=== PATIENT | female | born 1980 | race Caucasian/White ===

== ENCOUNTER 2022-08-08 06:06 | Inpatient (IN) | payer OTHER, MEDICAID, SELFPAY ==
--- NOTE | 2022-08-01 10:36 | RAD_ITS ---
STUDY: X-RAY CHEST REASON FOR EXAM: Female, 41 years old. Pre-operative evaluation. TECHNIQUE: Frontal and lateral views of the chest. COMPARISON: None. FINDINGS: Hyperexpansion. There is no demonstrated pleural abnormality. Normal size heart. Normal mediastinum and mayra. Normal visualized pulmonary arteries. Normal visualized aortic arch and descending thoracic aorta. Normal visualized thoracic spine. Normal visualized ribs, clavicles, and shoulders. There is no demonstrated abnormality of the visualized soft tissue structures of the upper abdomen. RAD/Chest PA and Lateral IMPRESSION: Hyperexpansion. No active or acute cardiopulmonary abnormality. Electronically Signed: William Weiner, at 12:04 EDT ,
--- NOTE | 2022-08-01 10:36 | EKG12_ITS ---
Test Reason : PRE-OP Blood Pressure : / mmHG Vent. Rate : 091 BPM Atrial Rate : 091 BPM P-R Int : 148 ms QRS Dur : 076 ms QT Int : 352 ms P-R-T Axes : 080 065 062 degrees QTc Int : 432 ms Normal sinus rhythm Normal ECG Confirmed by BRUCE CHRISTIANSON, CASSIE ([id number]), photo editor VELASQUEZ AYALA ([id number]) on 08/02/2022 10:09:20 A M Referred By: ALEAH Confirmed By:FILIPPO BARRERA MD
[2022-08-01 11:18] LABS: Absolute Lymphocyte Count 1.73 X10^3/uL (0.83-4.51); Basophil# 0.05 X10^3/uL; Basophil% 0.9 % (0-1); Eosinophils% 8.7 % (0-5); Hematocrit 41.8 % (37-47); Hemoglobin 13.6 g/dL (12.0-15.0); Lymphocyte # 1.73 X10^3/ul (0.83-4.51); Lymphocyte % 29.9 % (19-41); Mean Corp Hgb Conc 32.5 g/dL (32-36); Mean Corpuscular Hgb 29.6 pg (27.0-32.0); Mean Corpuscular Volume 90.9 fL (81-99); Mean Platelet Vol. 9.7 fl (6.2-12.0); Monocyte# 0.53 X10^3/uL; Monocyte% 9.2 % (0-10); NRBC Flagged by Analyzer 0 % (0-5); Neutrophil # 2.96 X10^3/uL (2.7-7.7); Neutrophil % 51.1 % (47-70); Platelet Count 259 K/mm3 (150-450); RBC Distribution Width CV 12.4 % (11.6-14.6); RBC Distribution Width SD 41.1 fl (35.1-43.9); White Blood Count 5.8 K/mm3 (4.4-11.0)
[2022-08-01 11:30] LABS: Prothrombin Time (Protime)PT. 12.8 SECONDS (11.7-14.9)
[2022-08-01 11:31] LABS: Partial Thromboplast Time 29.1 Seconds (24.1-36.2)
[2022-08-01 11:45] LABS: Anion Gap 5 (5-15); BUN 8 mg/dL (7-18); BUN/Creat Ratio 10.7 RATIO (10-20); Calcium,Total 9.4 mg/dL (8.5-10.1); Chloride 107 mmol/L (98-107); Creatinine, Serum 0.75 mg/dL (0.55-1.02); EST Glomerular Filtration Rate 91 mL/min (>60); Est Glom Filt Rate - Afr Amer 110 mL/min (>60); Glucose 94 mg/dL (74-106); Sodium Level 140 mmol/L (136-145)
--- NOTE | 2022-08-01 12:22 | CASEMGMT ---
DARBY FRAZIER Assessment: TC to pt for initial transition planning/care coordination assessment. RN KARIN introduced self and role at [facility], pt voices understanding and consents to assessment. Care providers, pharmacy, and demographics verified/updated. Admitting Dx: Lumbar 4-5 post lumbar interbody fusion, decompression, post spinal fusion with instrumentation PCP:Audrey Specialists:Syed Noel Pharmacy: [facility] [place] Insurance: MMO Prescription Benefit: yes LW/HPOA: Pt denies having a LW/DPOA and denies need for information regarding AD. LNOK: Dorothy and Deshaun Harding, parents Living Arrangements: Pt lives with boyfriend and 2 children in a mobile home with 2 steps to enter without a rail. Pt reports being I for the most part with ADL's and denies concerns at home. Transportation: Pt drives self and denies concerns with transportation. Pt states her mother will tranpsort her to medical appts post surgery. DME/HHC/SNF: Pt recently obtained a FWW from [facility]. States her mother also purchased a toilet riser but she does not have it yet. Pt denies hx of HHC or SNF stays. Pt states no concerns with going home at time of dc. Pt states no further concerns/needs. CM to follow. Advised pt to ask CM if any further question/concerns/needs arise, voices understanding. Pt Goal: Home Plan: Home
[2022-08-08] VITALS (17 sets, daily range): BP systolic 88–110; BP diastolic 51–85; PULSE 61–111; RESP 15–18; TEMP 36.1–37.4; O2SAT 95–100; BMI 19.2
[2022-08-08] MEDS: Lactated Ringers 1,000 ML 15 ML IV ×2 (06:48→08:46)
--- NOTE | 2022-08-08 07:10 | OP.PCM_ITS ---
Problems Associated Problem List Diagnoses (1) Lumbar stenosis: Report of Operation Date of Procedure: 08/08/22 Pre-Operative Diagnosis: 1. Lumbar stenosis, L4-5 with spondylosis 2. Lumbar degenerative disc disease L4-5 Post-Operative Diagnosis: 1. Lumbar stenosis, L4-5 with spondylosis 2. Lumbar degenerative disc disease L4-5 Surgery/Procedure Performed:: 1. L4-5 posterior lumbar interbody fusion 2. Insertion of intervertebral biomechanical device x1 3. Structural allograft for spinal fusion 4. L4 bilateral laminectomies, foraminotomies, facetectomies, decompression of bilateral nerve roots 5. L4-5 posterior lateral fusion 6. Pedicle screw fixation 7. Local autograft for spinal fusion 9. Neuro monitoring bilateral upper and bilateral lower extremities Description of Surgical Findings:: The patient is a 41-year-old female with intractable back and leg pain. Image studies confirm the above diagnosis. She has failed conservative treatment to include medication physical therapy and injections. The patient opted for operative intervention understanding the risk to include but not limited to infection, bleeding, damage to nerves arteries and veins, possibility of spinal fluid leak, nonunion, hardware failure, continued pain, need for further surgery, deep vein thrombosis, pulmonary embolism, heart attack, risk of stroke or . The patient was identified in the preoperative holding area. There she received preoperative IV antibiotics Ancef and was then transferred to the operative suite. Once in the operative suite after general endotracheal anesthesia was established the patient was positioned prone on the Jam operating table. All bony prominences were padded accordingly. The lumbar spine was prepped and draped in a standard surgical fashion. Bear hugger's were not turned on until the drapes were placed and sealed with Ioban. A midline incision was made and taken down to the lumbodorsal fascia. The fascia was divided and subperiosteal dissection was taken down to the level of the transverse processes at L4 and L5 bilaterally. Deep retractors were placed. A bone scalpel was used to make cuts in the lamina of L4 and then a series of rongeurs and Kerrisons was used removing the spinous process and lamina at L4. Then facetectomies of greater than 50% were performed as well as foraminotomies decompressing the bilateral nerve roots. Given the severity of the stenosis I needed to perform wide bilateral laminectomies and near complete facetectomies in order to decompress the neural elements. Thus creating instability necessitating the fusion. I then proceeded with the interbody fusion. The nerve roots and dura were identified and retracted medially. A 15 blade scalpel was used to make an annulotomy at L4-5 on the left. Endplate elevators, curettes, and pituitaries were used to remove disc material. Endplates were prepared with a rasp. An appropriate sized intervertebral peek cage device measuring 11 mm was packed with morselized cancellous allograft and impacted into position completing the posterior lumbar interbody fusion at L4-5. I then proceeded with pedicle screw fixation. Starting points were found at the junction of the superior articular process and transverse processes. A power bur was used for the starting points. Pedicle probes were placed bilaterally and then 6.5 x 50 mm screws were placed bilaterally at L4 and L5. The screws were tested with intraoperative neurophysiologic monitoring and tested within normal limits. Connecting rods were applied and secured with set screws. I then proceeded with the posterior lateral fusion. This was accomplished by decorticating the transverse processes bilaterally at L4 and L5. This decorticated bone was then bridged with local a utograft from the decompression as well as morselized cancellous allograft therefore completing the posterior lateral fusion at L4-5. The incision was thoroughly irrigated. Tisseel was placed over the dura as a hemostatic agent. A deep drain was placed. The fascia was closed with #1 Vicryl, subcutaneous with 2-0 Vicryl and skin with 2-0 nylon. A sterile dressing was applied with 4 x 4's ABD and tape. Sponge instrument and needle counts were correct at the end of the case. Neurophysiologic monitoring was maintained at baseline throughout the duration of the case. The patient was extubated and taken to the PACU without incident. Surgeon: Spencer Lynch Type of Anesthesia: General Drains: Hemovac Estimated Blood Loss (mL): 250 cc Fluids Replaced: 1500 cc Grafts/Implants Used: Unified spine, talos, vitae os, DBM Complications None Admit VTE Documentation VTE Present on Admission: No
--- NOTE | 2022-08-08 07:11 | PCM.PN.ORT ---
Subjective Subjective The patient was seen and examined postoperatively in the PACU. She is resting comfortably. Her pain is controlled. She denies any acute numbness tingling or weakness Objective Data Objective Data Vital Signs: Vital Signs Temp Pulse Resp BP Pulse Ox O2 Del Method 99.4 F H 78 18 110/78 99 Room Air 08/08/22 06:43 08/08/22 06:43 08/08/22 06:43 08/08/22 06:43 08/08/22 06:43 08/08/22 06:43 Oxygen Delivery Method Room Air Weight: 119 lb 0.794 oz Body Mass Index (BMI) 19.2 Lab / Micro Data Result Diagrams: 08/01/22 10:53 08/01/22 10:53 Physical Exam Const alert, oriented x3 and no apparent distress General Appearance: cooperative, comfortable and well kempt HEENT normocephalic and head/scalp atraumatic Eyes EOMs intact bilaterally and conjunctivae normal Neck full ROM General: normal visual inspection Chest inspection of chest normal and palpation of chest normal Resp normal respiratory effort and normal air movement Cardio regular rate, regular rhythm and peripheral pulses 2+ throughout GI soft to palpation, non-tender and non-distended Back/Spine Back/Spine Narrative: Dressing clean dry and intact. Drain in place and functioning with small amount of serosanguineous fluid present Cervical Spine: cervical ROM normal Thoracic Spine / Upper Back: normal to inspection Lumbar Spine / Lower Back: normal to inspection Extremity normal to inspection, full ROM, normal capillary refill, no clubbing, cyanosis or edema and no calf tenderness Skin no rashes or lesions noted General Skin Exam: no breakdown Neuro oriented x3, CN's II-XII intact bilaterally, moves all extremities, no focal motor deficits, no sensory deficits noted and deep tendon reflexes 2+ bilaterally Motor Exam: strength 5/5 throughout and muscle tone normal throughout Assessment & Plan Assessment/Plan (1) Lumbar stenosis: PLAN: Okay to admit to floor See orders Pain control and mobilization as tolerated, back brace on at all times when out of bed Continue antibiotics while drain in place Discharge planning, likely home tomorrow
--- NOTE | 2022-08-08 07:11 | PCM.DC.SUM ---
Providers Date of Admission: 08/08/22 Primary Care Physician: Jil Ventura POWER PRESS OPERATOR-C Reason For Visit: lumbar 4-5 interbody fusion Diagnosis Discharge Diagnosis (1) Lumbar stenosis: Status: Acute Code(s): M48.061 - Spinal stenosis, lumbar region without neurogenic claudication Medications at Discharge Home Medications gabapentin 100 mg capsule 100 mg PO TID PAIN 07/29/22 metoprolol succinate 25 mg tablet,extended release 24 hr 12.5 mg PO BID BP 07/29/22 tizanidine 4 mg tablet (Zanaflex) 4 mg PO BID PRN Pain 07/29/22 oxycodone-acetaminophen 5 mg-325 mg tablet 1 tab PO Q6H PRN PRN Pain 7 days #28 tabs 08/09/22 tizanidine 4 mg capsule 4 mg PO Q8H PRN muscle spasticity 7 days #30 caps 08/09/22 Hospital Course Operations - (L4-5 posterior lumbar interbody fusion, decompression, posterior spinal fusion with instrumentation, use of allograft) Summary of Care Provided Minutes Spent on Discharge: 15 Hospital Course: The patient is a 41-year-old female who underwent L4-5 posterior lumbar interbody fusion, decompression, posterior spinal fusion with instrumentation, use of allograft on 08/08/2022. She was subsequently admitted. The hospitalist was consulted for medical management. The patient progressed well. Her pain was well controlled and she was mobilizing well. Her drain was pulled on postoperative day 1. No significant medical issues were reported and she was subsequently discharged home on 08/09/22 to follow-up with Dr. Lynch in 3 weeks Physical Exam Const alert, oriented x3 and no apparent distress General Appearance: cooperative, comfortable and well kempt HEENT normocephalic and head/scalp atraumatic Eyes EOMs intact bilaterally and conjunctivae normal Neck full ROM General: normal visual inspection Chest inspection of chest normal and palpation of chest normal Resp normal respiratory effort and normal air movement Effort and Inspection: able to speak in complete sentences Cardio regular rate and peripheral pulses 2+ throughout GI soft to palpation, non-tender and non-distended Back/Spine Back/Spine Narrative: Dressing clean dry and intact. Incision well approximated with interrupted sutures in place. No tenderness erythema drainage or fluctuance Cervical Spine: cervical ROM normal Thoracic Spine / Upper Back: normal to inspection Lumbar Spine / Lower Back: normal to inspection Extremity normal to inspection, full ROM, normal capillary refill, no clubbing, cyanosis or edema and no calf tenderness Skin no rashes or lesions noted General Skin Exam: no breakdown Neuro oriented x3, CN's II-XII intact bilaterally, moves all extremities, no focal motor deficits, no sensory deficits noted and deep tendon reflexes 2+ bilaterally Motor Exam: strength 5/5 throughout and muscle tone normal throughout Weight / BMI Weight Weight: 119 lb 0.794 oz Body Mass Index (BMI) 19.2 ABG / Lab / Microbiology Data Result Diagrams: 08/01/22 10:53 08/01/22 10:53 D/C Instructions Discharge Diet: No restrictions Lifting Restricted to (Lbs): 5 Lifting Restrictions: No repetitive bending twisting or lifting greater than 5 pounds. Additional Activity Instructions: Back brace on at all times while out of bed Call your doctor if your incision/area has: Continuous Slow Oozing, Sudden Increased Bleeding, Increased Pain/ Swelling, Increased Redness, Foul Smelling Discharge and Swelling at the incision site Call your doctor if you observe: Fever of 101 or Higher, Coldness, Increased Pain, Numbness or Tingling, Change in Color, Inability to urinate, Inability to have a bowel movement, Using more than 1 pad per hour, Shortness of breath, Dizziness, Fainting spells, Swelling in the ankles, Chest pain, Prolonged hiccupping, Increased palpitations (irregular heartbeat), Calf discomfort and Uncontrolled pain Cleanse incision/area with: Do not get Incision Wet and Keep Dressing Clean & Dry Additional Dressing/Incision Instructions: Change dressing daily with iodine gauze and tape. [place] dressing to shower Please Follow Up With: Spencer Lynch DO When: 3 weeks Meaningful Use Info Meaningful Use Diagnoses (Choose all that apply): None applicable Discharge Plan Admission Admit Date/Time: 08/08/22 06:06 Attending Provider: Spencer Lynch Primary Care Provider: Jil Ventura NP Consulting Providers: Aurora Newman Instructions Additional Instructions / Restrictions: 1. During your procedure, you received sedation through your IV. Please follow these instructions for the next 24 hours: Do not drive a motor vehicle, do not drink any alcoholic beverages, and do not sign any legal documents or make personal or business decisions. A responsible adult should stay with you at least 6 hours after the procedure. 2. Keep your surgical site/incision clean and the dressing dry and intact. Change dressing daily you may use an ice pack at the surgical site to reduce any swelling or discomfort. 3. Monitor the incision site for any signs or symptoms of infection. Watch for redness, excessive swelling or drainage, or continued pain at the incision site after 3 days. Contact your physician immediately for a fever, chills or a temperature of 101.5? F or greater. 4. Take your medication exactly as prescribed by your physician. Do not attempt to wean yourself off any of your medications even though your pain is improving. This process needs to be carefully monitored by your doctor. Take any antibiotics prescribed exactly as directed and until they are gone. 5. Avoid stretching, bending, pulling, twisting or any sudden movements. Do not bend or twist at the waist. Wear your back brace at all times 6. No lifting greater than 5 pounds. A gallon of milk weighs more than 5 pounds, so you may not lift this. Try to be careful. Any falls could disl 7. Do not operate a motor vehicle, equipment or a power tool while taking pain medication 8. Do not have any manipulation done by a chiropractor or any other physician without first consulting with the surgeon 9. Please contact our office if you are even scheduled for a CT scan or an MRI. 10. Please call us if you have any questions, problems or concerns. Discharge Orders/Prescriptions Prescriptions: New oxycodone-acetaminophen 5-325 mg tablet 1 tab PO Q6H PRN PRN (Reason: Pain) 7 Days Qty: 28 0RF tizanidine 4 mg capsule 4 mg PO Q8H PRN (Reason: muscle spasticity) 7 Days Qty: 30 0RF Continued tizanidine [Zanaflex] 4 mg Tablet 4 mg PO BID PRN (Reason: Pain) gabapentin 100 mg Capsule 100 mg PO TID metoprolol succinate 25 mg Tablet Extended Release 24 Hr 12.5 mg PO BID Referrals / Follow Up: Spencer Lynch DO [Med Staff - Active Staff] - Jil Ventura NP, POWER PRESS OPERATOR-C [Primary Care Provider] - Disposition Disposition (needs filled in before D/C Order can be placed): Home, Self Care
--- NOTE | 2022-08-08 07:44 | RAD_ITS ---
HISTORY: POSTERIOR FUSION L4-5. TECHNIQUE: 5 spot images. COMPARISON: None. FINDINGS: Posterior spinal fusion hardware with interbody fusion material at L4-5. RAD/Spine 1 View Any Level IMPRESSION: Fluoroscopic guidance for L4-5 posterior spinal fusion. Please refer to operative note. Electronically Signed: Ya Smart MD at 11:23 EDT ,
[2022-08-08] MEDS: Cefazolin 2 GM in 0.9% Normal Saline 100 ML IV (07:53)
[2022-08-08] MEDS: THROMBIN (RECOMBINANT) 20,000 UNIT VIAL 20000 UNIT TOPICAL (08:18)
[2022-08-08] MEDS: Heparin 10,000 UNITS/10 ML Vial 10000 UNITS (08:18)
[2022-08-08] MEDS: Lactated Ringers 1,000 ML 100 ML IV ×2 (10:46→17:36)
[2022-08-08] MEDS: Acetaminophen 500 MG Tablet 1000 MG PO ×2 (15:02→22:19)
[2022-08-08] MEDS: Gabapentin 100 MG Capsule PO (15:02)
--- NOTE | 2022-08-08 16:02 | CON.PCM.HO_ITS ---
Assessment & Plan Assessment/Plan (1) Lumbar stenosis: PLAN: Plan The patient is a 41 y/o F w/ PMHx: Former tobacco use, Chronic back pain w/ Lumbar stenosis, HTN who presents to the [facility] on 08/08/22 for planned surgical intervention per Dr. Lynch secondary to ongoing debility and pain in her back despite outpatient conservative interventions for planned surgical intervention. #1. Chronic back pain with lumbar stenosis: Failed conservative therapies and treatments, admitted per Dr. Lynch for planned 08/08/22 L4-5 posterior lumbar interbody fusion, insertion of intervertebral biomechanical device, structural allograft for spinal fusion, L4 bilateral laminectomies/foraminotomies/fasciotomies/decompression bilateral nerve roots, L4-5 posterior lateral fusion, pedicle screw fixation, local autograft for s barbara fusion with neurological monitoring, post-operative pain management, bowel regimen, DVT Prophylaxis, PT/OT/CM per Orthopedic surgery discretion. #2. Hypertension: Continue home regimen including metoprolol with alterations as needed, PRN hydralazine. #3. Former tobacco use: Encourage continued tobacco cessation. #4 DVT prophylaxis: SCDs, chemoprophylaxis per surgery discretion given recent OR. HPI Consult Data Date of Consult: 08/08/22 HPI Narrative Reason for Consultation: Medical consultation HPI Narrative: The patient is a 41 y/o F w/ PMHx: Former tobacco use, Chronic back pain w/ Lumbar stenosis, HTN who presents to the [facility] on 08/08/22 for planned surgical intervention per Dr. Lynch secondary to ongoing debility and pain in her back despite outpatient conservative interventions with L4-5 posterior lumbar interbody fusion, insertion of intervertebral biomechanical device, structural allograft for spinal fusion, L4 bilateral laminectomies/foraminotomies/fasciotomies/decompression bilateral nerve roots, L4-5 posterior lateral fusion, pedicle screw fixation, local autograft for spinal fusion with neurological monitoring. Surgery requested medical consultation for medical management. Patient upon evaluation noted she was having tentative 10 severe lumbar back pain with no associated radicular pains and describes her pain as a dull throbbing ache. Patient notes that she was recently at the end of her menstrual cycle and was asking about whether or not a Patel catheter would cause any issue which was discussed. [facility] Medical History (Updated 08/08/22 @ 07:[address] Spencer Lynch, DO) Back pain Former smoker History of echocardiogram History of irregular heartbeat History of pain when walking History of steroid therapy Injury of head and neck Wears dentures Home Medications gabapentin 100 mg capsule 100 mg PO TID PAIN 07/29/22 [History Last Taken 08/07/22] metoprolol succinate 25 mg tablet,extended release 24 hr 12.5 mg PO BID BP 07/29/22 [History Last Taken 08/08/22 05:30] tizanidine 4 mg tablet (Zanaflex) 4 mg PO BID PRN Pain 07/29/22 [History Last Taken 08/07/22] hydrocodone-acetaminophen 5-325mg 5mg-325mg 1 tab PO Q6H 7 days #28 tabs 08/08/22 [Rx Last Taken Unknown] Allergy/AdvReac Type Severity Reaction Status Date / Time No Known Allergies Allergy Verified 08/08/22 06:41 Family History (Updated 08/08/22 @ 19:[address] Aurora Newman MD) Mother Hypertension Father Hypertension Surgical History (Updated 08/08/22 @ 16:[address] Aurora Newman MD) History of back surgery Hx of tubal ligation S/P hernia repair S/P spinal fusion Social History (Updated 08/08/22 @ 16:[address] Aurora Newman MD) household members: spouse Smoking Status: Former smoker alcohol intake: current alcohol intake frequency: a few times a month substance use type: does not use ROS ROS Narrative Admission Review of Systems: CONSTITUTIONAL: No weight loss, fever, chills, + weakness or fatigue. HEENT: Eyes: No visual loss, blurred vision, double vision or yellow sclerae. Ears, Nose, Throat: No hearing loss, sneezing, congestion, runny nose or sore throat. SKIN: + recent OR with incisions, dressings in place, no marked drainage. CARDIOVASCULAR: No chest pain, chest pressure or chest discomfort, palpitations, edema, orthopnea, syncopal events. RESPIRATORY: No shortness of breath, cough or sputum, wheezing, hemoptysis. GASTROINTESTINAL: No anorexia, nausea, vomiting or diarrhea, abdominal pain, melena, BRBPR. GENITOURINARY: No dysuria, frequency, urgency or retention. NEUROLOGICAL: + Recent lumbar back pain with lower extremity debility but no focal deficits and no sensory alterations. No headache, dizziness, syncope, paralysis, ataxia, change in bowel or bladder control, seizure. MUSCULOSKELETAL: + muscle, back pain, joint pain or stiffness. HEMATOLOGIC: No anemia, bleeding or bruising. LYMPHATICS: No enlarged nodes. No history of splenectomy. PSYCHIATRIC: No history of depression or anxiety. ENDOCRINOLOGIC: No reports of sweating, cold or heat intolerance. No polyuria or polydipsia. ALLERGIES: No history of asthma, hives, eczema or rhinitis. Physical Exam Narrative Physical Examination: General: Awake, alert, oriented x 3 and cooperative, [facility], reports lumbar dull aching pain 10 out of 10 in severity. Skin: Normal color, normal turgor, no icterus, no cyanosis except for recent OR with incisions, dressings in place no drainage. HEENT: AT/NC, EOMI, PERRLA, mildly dry MM, no carotid bruits or JVD noted. Lungs: Mildly diminished, greater bases, appropriate effort, no rales, ronchi or wheezing. Heart: Regular rate and rhythm; no gallop, rub audible. Abdomen: Soft, thin habitus, NTTP, ND, distant mildly hyperactive BS, no HSM. Extremities: No cyanosis, clubbing, or edema, sensation intact. Neurological: Patient awake, alert, oriented as noted, cognitive function intact; pupils equally reactive to light and accommodation, cranial nerves II- XII grossly normal, moving all 4 extremities although limited given recent OR with lumbar surgery, no focal deficits, strength accordingly moderately to severely global decreased. Psychiatric: Affect appears fatigued and uncomfortable, no acute evidence of depressive or anxiety feelings. Lab / Micro Data Result Diagrams: 08/01/22 10:53 08/01/22 10:53 Radiology Impression Spine X-Ray 08/08/22 07:44 IMPRESSION: Fluoroscopic guidance for L4-5 posterior spinal fusion. Please refer to operative note. Electronically Signed: Ya Smart MD at 11:23 EDT , Charges/Coding Visit Charges Office Visits / Consults: [id number] IP Consult L3
[2022-08-08] MEDS: Cefazolin 1 GM/50 ML BAG IV ×2 (17:37→23:51)
[2022-08-08] MEDS: Gabapentin 100 MG Capsule 200 MG PO ×2 (17:37→22:17)
[2022-08-08] MEDS: Morphine 2 MG/ML Syringe IV ×2 (18:34→22:11)
[2022-08-08] MEDS: tiZANidine HCl 2 MG Tablet 4 MG PO (18:34)
[2022-08-08] MEDS: 0.9% Saline Lock 10 ML Syringe IV (22:11)
[2022-08-09] VITALS (9 sets, daily range): BP systolic 90–101; BP diastolic 54–70; PULSE 53–86; RESP 15–16; TEMP 36.7–36.8; O2SAT 97–99
[2022-08-09] MEDS: Morphine 2 MG/ML Syringe IV ×2 (03:29→08:12)
[2022-08-09] MEDS: 0.9% Saline Lock 10 ML Syringe IV (03:30)
[2022-08-09] MEDS: Lactated Ringers 1,000 ML 100 ML IV (03:40)
[2022-08-09] MEDS: oxyCODONE 5 MG Tablet PO ×2 (04:45→09:31)
[2022-08-09] MEDS: Gabapentin 100 MG Capsule 200 MG PO (06:12)
[2022-08-09] MEDS: Acetaminophen 500 MG Tablet 1000 MG PO (06:12)
[2022-08-09] MEDS: tiZANidine HCl 2 MG Tablet 4 MG PO (06:13)
--- NOTE | 2022-08-09 10:15 | CASEMGMT ---
RN CM in to pt room, pt states she is doing well considering. She denies homegoing needs. She has a FWW at home.
--- NOTE | 2022-08-09 12:21 | PN.HOSP_ITS ---
Subjective Subjective Patient seen and examined. She has no active complaints. Pain is well controlled. She did well with therapy today. Review of systems is otherwise negative. Objective Data Objective Data Vital Signs: Vital Signs Temp Pulse Resp BP Pulse Ox O2 Del Method 98.1 F 62 15 90/58 L 99 Room Air 08/09/22 09:00 08/09/22 09:35 08/09/22 09:00 08/09/22 09:35 08/09/22 09:00 08/09/22 09:00 Oxygen Delivery Method Room Air Weight: 119 lb 0.794 oz Body Mass Index (BMI) 19.2 Intake & Output: Intake and Output for Last 24 Hours 08/07/22 08/08/22 08/09/22 23:59 23:59 23:59 Intake Total 3093.33 / 3093.33 1550 / 1550 Output Total 2017 1790 / 1790 Balance 2275.33 / 1075.33 -240 / -240 Lab / Micro Data Result Diagrams: 08/01/22 10:53 08/01/22 10:53 Physical Exam Const alert, oriented x3 and no apparent distress General Appearance: uncooperative HEENT head/scalp atraumatic, moist oral mucous membranes and oropharynx normal Head and Scalp: normocephalic Mouth: oral and palatal mucosa normal Eyes PERRL, EOMs intact bilaterally and conjunctivae normal Resp normal respiratory effort, no retractions, no use of accessory muscles and clear to auscultation bilaterally Cardio regular rate, regular rhythm, S1 normal heart sound, S2 normal heart sound and no murmurs GI normal to inspection, nondistended, normoactive bowel sounds, soft to palpation, non-tender and non-distended GI Narrative: intact abdominal binder Extremity normal to inspection, full ROM and no clubbing, cyanosis or edema Neuro oriented x3, CN's II-XII intact bilaterally, moves all extremities and no focal motor deficits Motor Exam: strength 5/5 throughout Psych affect normal Assessment & Plan Assessment/Plan (1) Lumbar stenosis: PLAN: Plan #Lumbar spinal stenosis s/p L4- L5 posterior lumbar interbody fusion * today is POD 1. * management as per spine surgery * encouarge incentive spirmoetry * PT/OT on board * pain management as per primary team * #Hypertension: on metoprolol. Hydralazien prn DVT prophylaxis: as per primary team orthopedic surgery Charges/Coding Visit Charges Inpatient E&M: 10470 Subs Hosp L2
== END 2022-08-09 13:00 | disposition home or self-care (01) | DRG 460 ==
LOC: ACINP 09:01 → MS3 09:29
PROVIDERS: Admitting Provider Orthopaedic Surgery; PCP Nurse Practitioner Family; Visit Provider Orthopaedic Surgery
PROC: 0SG00AJ Fusion of Lumbar Vertebral Joint with Interbody Fusion Device, Posterior Approach, Anterior Column, Open Approach (ICD-10-PCS; CPT 22630; principal; 2022-08-08 07:00)
DX: M48.061 Spinal stenosis, lumbar region without neurogenic claudication (principal); I10 Essential (primary) hypertension; M46.96 Unspecified inflammatory spondylopathy, lumbar region; M51.36 Other intervertebral disc degeneration, lumbar region; M47.26 Other spondylosis with radiculopathy, lumbar region; M96.1 Postlaminectomy syndrome, not elsewhere classified; M51.16 Intervertebral disc disorders with radiculopathy, lumbar region; Z86.16 Personal history of COVID-19; Z87.891 Personal history of nicotine dependence
CPT/HCPCS: 36415; 71046; 72020; 76000; 80048; 85025; 85610; 85730; 93005; 97162; 97530; 99251; 99406; C1713; J7120; A4216; G0463; J2405

== ENCOUNTER → 2023-02-08 | Outpatient (CLI) | payer BC, MEDICAID, SELFPAY ==
[2023-02-08 11:11] LABS: AST(SGOT) 28 U/L (15-37); Alanine Aminotransfer ALT/SGPT 25 U/L (13-56); Albumin, Serum 3.6 g/dL (3.2-5.0); Alkaline Phosphatase 65 U/L (45-117); Anion Gap 3 (5-15); BUN 10 mg/dL (7-18); BUN/Creat Ratio 17.5 RATIO (10-20); Calcium,Total 8.8 mg/dL (8.5-10.1); Chloride 110 mmol/L (98-107); Cholesterol 221 mg/dL (200); Creatinine, Serum 0.57 mg/dL (0.55-1.02); EST Glomerular Filtration Rate 124 mL/min (>60); Est Glom Filt Rate - Afr Amer 150 mL/min (>60); Globulin 3.5 g/dL (2.2-4.2); Glucose 93 mg/dL (74-106); High Density Lipoprotein 66 mg/dL; Potassium 3.5 mmol/L (3.5-5.1); Protein, Total 7.1 g/dL (6.4-8.2); Sodium Level 138 mmol/L (136-145); Triglycerides 64 mg/dL; Very Low Density Lipoprotein 13 mg/dL (5-40)
[2023-02-10 09:11] LABS: HIV - WCH Non-Reactive (Nonreactive)
== END | disposition home or self-care (01) ==
LOC: LAB 10:15
PROVIDERS: PCP Nurse Practitioner Family; Visit Provider Nurse Practitioner Family
DX: Z13.1 Encounter for screening for diabetes mellitus (principal); Z13.220 Encounter for screening for lipoid disorders; Z11.4 Encounter for screening for human immunodeficiency virus [HIV]
CPT/HCPCS: 36415; 80053; 80061; 86703

== ENCOUNTER → 2023-03-03 | Outpatient (CLI) | payer BC, SELFPAY ==
--- NOTE | 2023-03-03 16:10 | CT_ITS ---
INDICATION: SPINAL STENOSIS EXAMINATION: CT lumbar SPINE - CT Spine Lumbar W/O Contrast Injection COMPARISON: None. A radiation dose optimization technique was used for this scan. Findings: Serial CT axial images through the lumbar spine, with coronal and sagittal reformatted series. DISCS/JOINTS: Significant streak artifact at L4-L5 level secondary to bilateral purvi and pedicle screw constructs at these levels, without obvious hardware complication. Intervertebral disc spacer in place. BONES: Associated postlaminectomy change. No evidence of lumbar spine fracture or subluxation. No concerning bony lesion or abnormal sclerosis to suggest lesion. SOFT TISSUES: Soft tissue structures are unremarkable. CT/Spine Lumbar without Contrast IMPRESSION: Post procedure change of the lumbar spine, without obvious abnormality. Electronically Signed: Lokesh Sevilla MD at 1:55 EDT ,
== END | disposition home or self-care (01) ==
PROVIDERS: PCP Nurse Practitioner Family; Referring Provider Physician Assistant Surgical; Visit Provider Physician Assistant Surgical
DX: M48.061 Spinal stenosis, lumbar region without neurogenic claudication (principal)
CPT/HCPCS: 72131

== ENCOUNTER → 2023-05-19 | Outpatient (CLI) | payer BC, SELFPAY ==
[2023-05-19 17:54] LABS: ALB/GLOB Ratio 0.9 RATIO (0.9-2.4); AST(SGOT) 20 U/L (15-37); Alanine Aminotransfer ALT/SGPT 17 U/L (13-56); Albumin, Serum 3.4 g/dL (3.2-5.0); Alkaline Phosphatase 54 U/L (45-117); Anion Gap 5 (5-15); BUN 11 mg/dL (7-18); BUN/Creat Ratio 15.3 RATIO (10-20); Calcium,Total 8.7 mg/dL (8.5-10.1); Chloride 107 mmol/L (98-107); Creatinine, Serum 0.72 mg/dL (0.55-1.02); EST Glomerular Filtration Rate 95 mL/min (>60); Est Glom Filt Rate - Afr Amer 115 mL/min (>60); Globulin 3.8 g/dL (2.2-4.2); Glucose 97 mg/dL (74-106); Magnesium 2.2 mg/dL (1.6-2.6); Potassium 3.7 mmol/L (3.5-5.1); Protein, Total 7.2 g/dL (6.4-8.2); Sodium Level 137 mmol/L (136-145); Thyroid Stim Hormone (TSH) 0.58 uIU/mL (0.358-3.74)
== END | disposition home or self-care (01) ==
PROVIDERS: PCP Nurse Practitioner Family; Referring Provider Internal Medicine; Visit Provider Internal Medicine
DX: K92.1 Melena (principal); E87.8 Other disorders of electrolyte and fluid balance, not elsewhere classified; R19.4 Change in bowel habit
CPT/HCPCS: 36415; 80053; 83735; 84443

== ENCOUNTER → 2024-04-07 | Outpatient (CLI) | payer BC, SELFPAY ==
--- NOTE | 2024-04-07 13:48 | NEURO_ITS ---
NCS and/or EMG Patient Report Ordering Doctor: Spencer Lynch DATE OF SERVICE: 04/07/24 Aide presents for electrodiagnostic testing of the upper limbs. She reports numbness and tingling in both hands. She reports intermittent neck pain. Electrodiagnostic findings: Median motor nerve demonstrates normal distal latency, amplitude and conduction velocity bilaterally. Ulnar motor response is normal bilaterally, including conduction across the elbow. Normal median ulnar F?ways. Sensory responses are within normal limits. Needle EMG testing was performed in the upper limbs. All muscles tested showed no evidence of denervation with normal motor unit action potentials. Electrodiagnostic impression: This is a normal electrodiagnostic study of the upper limbs. There is no electrodiagnostic evidence for peripheral neuropathy, including carpal tunnel or cubital tunnel syndrome. There is no electrodiag nostic evidence for cervical radiculopathy. Multi Select Codes Neurology Neurology Interp Codes: 68594-48 Musc test done w/n test comp (interp) (2) and 93906-62 Nrv cndj test 13/> studies (interp)
== END | disposition home or self-care (01) ==
PROVIDERS: PCP Nurse Practitioner Family; Referring Provider Orthopaedic Surgery; Visit Provider Orthopaedic Surgery
DX: M54.12 Radiculopathy, cervical region (principal); R20.2 Paresthesia of skin
CPT/HCPCS: 95886; 95913

== ENCOUNTER 2024-08-31 05:24 | Day surgery (SDC) | payer BC, SELFPAY ==
[2024-08-24 16:35] LABS: Absolute Lymphocyte Count 1.63 X10^3/uL (0.83-4.51); Absolute Neutrophil Count 2.1 X10^3/uL (2.0-7.7); Basophil# 0.04 X10^3/uL; Basophil% 0.9 % (0-1); Eosinophil# 0.35 X10^3/uL; Eosinophils% 7.6 % (0-5); Hematocrit 37.4 % (37-47); Hemoglobin 11.8 g/dL (12.0-15.0); Lymphocyte # 1.63 X10^3/ul (0.83-4.51); Lymphocyte % 35.6 % (19-41); Mean Corp Hgb Conc 31.6 g/dL (32-36); Mean Corpuscular Hgb 28.9 pg (27.0-32.0); Mean Corpuscular Volume 91.7 fL (81-99); Mean Platelet Vol. 10.6 fl (6.2-12.0); Monocyte% 10.9 % (0-10); NRBC Flagged by Analyzer 0 % (0-5); Neutrophil # 2.05 X10^3/uL (2.7-7.7); Neutrophil % 44.8 % (47-70); Platelet Count 224 K/mm3 (150-450); RBC Distribution Width CV 12.9 % (11.6-14.6); RBC Distribution Width SD 43.5 fl (35.1-43.9); Red Blood Count 4.08 M/mm3 (4.2-5.4); White Blood Count 4.6 K/mm3 (4.4-11.0)
[2024-08-24 16:50] LABS: Magnesium 2.2 mg/dL (1.6-2.6)
[2024-08-24 18:11] LABS: HIV - WCH Non-Reactive (Nonreactive); Hepatitis B Surface Antibody Non-Reactive; Hepatitis C Antibody Preliminary Reactive (Nonreactive)
[2024-08-26 09:09] LABS: Hepatitis A AB, Total Negative (Negative)
[2024-08-26 19:07] LABS: HCV Quant. RNA PCR 52700 IU/mL (.); HCV log 10 4.722 (.)
[2024-08-31] VITALS (14 sets, daily range): BP systolic 87–128; BP diastolic 57–104; PULSE 68–93; RESP 14–18; TEMP 36.2–37.1; O2SAT 95–100; BMI 22.4
--- OUTSIDE RECORDS SUMMARY | 2024-08-31 05:27 | XMS RPT_ITS | CCD ---
Author Organization [facility] Care Team Providers Care Under Baster Name Role Phone Audrey CATERING TRUCK OPERATOR.Jens FLORENCE Primary Care Provider GIORGI ROSE Attending Unavailab JENS Cárdenas Primary Care Unavailzak Beaver CATERING TRUCK OPERATOR.Jens FLORENCE Primary Care Provider Audrey CATERING TRUCK OPERATOR.Jens FLORENCE Primary Care Provider JENS BEAVER Referring Unavailable JENS BEAVER Primary Care Unavailable JENS BEAVER Referring Unavailable JENS BEAVER Primary Care Unavailable JENS BEAVER Attending Unavailable SELF Referring Unavailable JENS BEAVER Primary Care Unavailable EVETTE BENITEZ Attending Unavailable JENS BEAVER Primary Care Unavailable Medications Current Medications Medication Drug Class(es) Dates Sig (Normalized) Sig (Original) acyclovir 400 mg oral tablet (20 sources) Herpesvirus Nucleoside Analog DNA Polymerase Inhibitor, Herpes Simplex Virus Nucleoside Analog DNA Polymerase Inhibitor, Herpes Zoster Virus Nucleoside Analog DNA Polymerase Inhibitor Start: 10-01-2022 End: 03-24-2024 take 1 tablet by mouth three times daily acyclovir (ZOVIRAX) 400 mg tablet Indications: Recurrent cold sores take 1 tablet by mouth three times a day 21 tablet 2 03/24/2024 Active Start: 09-07-2021 take 1 tablet by ricky th three times daily acyclovir (ZOVIRAX) 400 mg tablet Indications: Recurrent cold sores Take 1 tablet by mouth three times daily. 21 tablet 3 09/07/2021 Active Comment on above: Take 1 tablet by ricky th three times daily. take 1 tablet by ricky th three times a day [id number] actuat albuterol 0.09 mg/actuat metered dose inhaler (19 sources) beta2-Adrenergic Agonist Start: 08-09-2024 take 2 puff(s) by inhalation every four hours as needed for wheezing albuterol HFA (PROVENTIL HFA, VENTOLIN HFA) 90 mcg/actuation inhaler Inhale 2 Puffs as instructed every 4 hours as needed for wheezing/shortness of breath. 1 Each 5 08/09/2024 Active Start: 02-26-2024 End: 08-09-2024 take 2 puff(s) by mouth every four to six hours albuterol HFA (PROVENTIL HFA, VENTOLIN HFA) 90 mcg/actuation inhaler INHALE 2 PUFFS BY MOUTH EVERY 4 TO 6 HOURS 02/26/2024 08/09/2024 Discontinued Start: 08-09-2021 albuterol HFA (PROVENTIL HFA, VENTOLIN HFA) 90 mcg/actuation inhaler Inhale 2 Puffs as instructed. 0 08/09/2021 Active Comment on above: Inhale 2 Puffs as in structed. clonazePAM 0.5 mg oral tablet (15 sources) Benzodiazepine Start: 02-26-20 take 1 tablet by mouth every twelve hours clonazePAM (KLONOPIN) 0.5 mg tablet Take 1 tablet by mouth every 12 hours. 02/26/2024 Active FLUoxetine 10 mg oral capsule (15 sources) Serotonin Reuptake Inhibitor Start: 02-18-20 take 1 capsule by mouth once daily in the morning FLUoxetine (PROZAC) 10 mg capsule Take 10 mg by mouth every morning. 02/18/2024 Active fluticasone propionate 0.05 mg/actuat metered dose nasal spray (20 sources) Corticosteroid Start: 02-06-20 End: 08-29-20 take 1 spray(s) nasal route once daily fluticasone (FLONASE) 50 mcg/actuation nasal spray spray 1 spray into each nostril every day 48 mL 1 08/29/2023 Active Comment on above: Use 1 [place] in each nostril once daily. spray 1 spray into e ach nostril every day loratadine 10 mg oral tablet (20 sources) Start: 10-06-20 End: 04-12-20 take 1 tablet by mouth once daily loratadine (CLARITIN) 10 mg tablet take 1 tablet by mouth every day 90 tablet 1 04/12/2024 Active Start: 02-05-2023 End: 08-04-2023 take 1 tablet by mouth once daily loratadine (CLARITIN) 10 mg tablet Take 1 tablet by mouth once daily. 90 tablet 1 02/05/2023 08/04/2023 Comment on above: Take 1 tablet by ricky th once daily. take 1 tablet by ricky th every day metoprolol tartrate 25 mg oral tablet (20 sources) beta-Adrenergic Yanely Start: 12-07-2023 End: 06-14-2024 take 1 tablet by mouth twice daily metoprolol tartrate, short acting, (LOPRESSOR) 25 mg tablet take 1/2 tablet by mouth twice daily 90 tablet 1 06/14/2024 Active Start: 02-05-2023 End: 12-07-2023 take 0.5 tablet by mouth twice daily metoprolol tartrate, short acting, (LOPRESSOR) 25 mg tablet Take 0.5 tablets by mouth twice daily. 90 tablet 1 02/05/2023 12/07/2023 Discontinued Start: 02-25-2022 End: 02-05-2023 take 1 tablet by mouth twice daily metoprolol tartrate, short acting, (LOPRESSOR) 25 mg tablet TAKE 1/2 TABLET BY MOUTH TWICE A DAY 90 tablet 1 08/27/2022 02/05/2023 Discontinued Start: 10-03-2021 End: 02-25-2022 take 0.5 tablet by mouth twice daily metoprolol tartrate, short acting, (LOPRESSOR) 25 mg tablet Take 0.5 tablets by mouth twice daily. 60 tablet 2 10/03/2021 02/25/2022 Discontinued Comment on above: TAKE 1/2 TABLET BY M OUTH TWICE DAILY Take 0.5 tablets by mouth twice daily. TAKE 1/2 TABLET BY M OUTH TWICE A DAY 24 hr nicotine 0.875 mg/hr transdermal system (20 sources) Cholinergic Nicotinic Agonist Start: 08-11-20 End: 03-31-20 24 apply 1 dose transdermal route every twenty-four hours nicotine (NICODERM) 21 mg/24 hr Indications: Nicotine dependence, cigarettes, uncomplicated APPLY 1 PATCH DIRECTED EVERY 24 HOURS. 28 Patch 1 02/18/2024 Active Start: 11-22-2022 End: 07-03-2023 apply 1 dose transdermal route every twenty-four hours nicotine (NICODERM) 14 mg/24 hr Indications: Smokes cigarettes APPLY 1 PATCH DIRECTED EVERY 24 HOURS. 30 Patch 1 05/22/2023 Active Start: 11-22-2022 nicotine (NETTA DERM) 7 mg/24 hr Indications: Smokes cigarettes Apply 1 Patch as directed every 24 hours for 14 days. 14 Patch 11/22/2022 Active Start: 11-22-2022 End: 03-19-2023 apply 1 dose transdermal route every twenty-four hours nicotine (NICODERM) 21 mg/24 hr Apply 1 Patch as directed every 24 hours. 30 Patch 1 02/05/2023 Active Start: 07-21-2022 End: 08-04-2022 nicotine (NICODERM) 7 mg/24 hr Indications: Smokes cigarettes Apply 1 Patch as directed every 24 hours for 14 days. 14 Patch 0 07/21/2022 08/04/2022 Active Start: 06-08-2022 End: 07-20-2022 apply 1 dose transdermal route every twenty-four hours nicotine (NICODERM) 14 mg/24 hr Indications: Smokes cigarettes Apply 1 Patch as directed every 24 hours. 30 Patch 1 06/08/2022 07/20/2022 Active Start: 04-26-2022 End: 06-07-2022 apply 1 dose transdermal route every twenty-four hours nicotine (NICODERM) 21 mg/24 hr Indications: Smokes cigarettes Apply 1 Patch as directed every 24 hours. 30 Patch 1 04/26/2022 06/07/2022 Active Comment on above: Apply 1 Patch as dir ected every 24 hours. Apply 1 Patch as dir ected every 24 hours for 14 days. perflutren lipid microspheres 1.3 mL in NaCl (PF) 0.9% 10 mL injection (DEFINITY) (5 sources) Start: 1 End: 3 perflutren lipid microspheres 1.3 mL in NaCl (PF) 0.9% 10 mL injection (DEFINITY) 125 ml sodium chloride 9 mg/ml prefilled syringe (5 sources) Start: 1 End: 3 sodium chloride 0.9 % (flush) 10 mL (BD POSIFLUSH) tiZANidine 4 mg oral tablet (20 sources) Central alpha-2 Adrenergic Agonist Start: 2 take 1 tablet by mouth twice daily as needed tiZANidine (ZANAFLEX) 4 mg tablet TAKE 1 TABLET BY MOUTH 2 TIMES A DAY NEEDED 06/10/2022 Active Comment on above: TAKE 1 TABLET BY RICKY 2 TIMES A DAY NEEDED varenicline 0.5 mg oral tablet (10 sources) Partial Cholinergic Nicotinic Agonist Start: 4 End: 4 varenicline (CHANTIX) 0.5 mg tablet Indications: Smokes cigarettes TAKE 1 TAB DAILY X 3 DAYS,THEN 1 TAB TWICE DAILY X 3 DAYS, THEN 2 TABS TWICE DAILY FOR 22 DAYS 291 tablet 1 05/05/2024 Active Completed/Discontinued Medications Medication Drug Class(es) Dates Sig (Normalized) Sig (Original) amoxicillin 875 mg / clavulanate 125 mg oral tablet (12 sources) Penicillin-class Antibacterial Start: 02-26-2024 End: 08-09-2024 take 1 tablet by mouth every twelve hours amoxicillin-clavul anate potassium (AUGMENTIN) 875-125 mg per tablet Take 1 tablet by mouth every 12 hours. 02/26/2024 08/09/2024 Discontinued benzonatate 100 mg oral capsule (3 sources) Non-narcotic Antitussive Start: 10-03-2021 take 100-200 mg by mouth every eight hours as needed benzonatate (TESSALON PERLES) 100 mg capsule Take 1-2 capsules by mouth three times daily as needed for cough. 45 capsule 1 10/03/2021 Active Comment on above: Take 1-2 capsules by mouth three times daily as needed for cough. doxycycline hyclate 100 mg oral tablet (4 sources) Tetracycline-class Drug Start: 03-03-2024 End: 03-13-2024 take 1 tablet by mouth twice daily doxycycline (VIBRA-TABS) 100 mg tablet Indications: Bacterial sinusitis Take 1 tablet by mouth two times a day for 10 days. 20 tablet 0 03/03/2024 03/13/2024 loperamide hydrochloride 2 mg oral tablet (3 sources) Opioid Agonist Start: 08-13-2021 loperamide HCl (IMODIUM A-D) 2 mg tab Indications: COVID-19 Take 2 tablets x1, then 1 tablet after each loose stool. Do not take more than 4 tablets in 24 hours. 20 tablet 0 08/13/2021 Active Comment on above: Take 2 tablets x1, t hen 1 tablet after each loose stool. Do not take more than 4 tablets in 24 hours. ondansetron 4 mg oral tablet (3 sources) Serotonin-3 Receptor Antagonist Start: 08-13-2021 take 1 tablet by mouth every six hours as needed for nausea ondansetron (ZOFRAN) 4 mg tablet Indications: COVID-19 Take 1 tablet by mouth every 6 hours as needed for nausea/vomiting. 30 tablet 0 08/13/2021 Active Comment on above: Take 1 tablet by ricky th every 6 hours as needed for nausea/vomiting. predniSONE 20 mg oral tablet (13 sources) Start: 03-03-2024 End: 08-09-2024 take 3 tablets by mouth once daily, then take 2 tablets by mouth once daily, then take 1 tablet by mouth once daily predniSONE (DELTASONE) 20 mg tablet Indications: Bacterial sinusitis Take 3 pills by mouth daily for 3 days, then 2 pills by mouth daily for 3 days, then 1 pill by mouth daily for 3 days 18 tablet 03/03/2024 08/09/2024 Discontinued Start: 02-26-2024 End: 03-03-2024 take 2 tablets by mouth once predniSONE (DELTASONE) 20 mg tablet Take 2 tablets by mouth every afternoon. 0 02/26/2024 03/03/2024 Discontinued (Other) Problems Active Problems Problem Classification Problem Date Documented Date Episodic/Chronic Chronic obstructive pulmonary disease and bronchiectasis (2 sources) Bronchitis, not specified as acute or chronic; Translations: [Bronchitis, not specified as acute or chronic] Onset: 01-09-2023 Episodic Disorders of lipid metabolism (1 source) Mixed hyperlipidemia; Translations: [Mixed hyperlipidemia] 08-15-2023 Chronic Immunizations and screening for infectious disease (5 sources) Patient encounter status; Translations: [Encounter for screening for human immunodeficiency virus [HIV]] Episodic Other eye disorders (20 sources) Chorioretinal scar of right eye; Translations: [Unspecified chorioretinal scars, right eye] Onset: 02-03-2020 02-03-2020 Chronic Other upper respiratory infections (2 sources) Bacterial sinusitis; Translations: [Chronic sinusitis, unspecified] Onset: 03-03-2024 03-03-2024 Chronic Pneumonia (except that caused by tuberculosis or sexually transmitted disease) (1 source) Bacterial pneumonia; Translations: [Unspecified bacterial pneumonia] 03-05-2024 Episodic Residual codes; unclassified (1 source) Nicotine-filled electronic cigarette user; Translations: [Tobacco use] Episodic Spondylosis; intervertebral disc disorders; other back problems (20 sources) Lumbosacral spondylosis without myelopathy; Translations: [Spondylosis without myelopathy or radiculopathy, lumbosacral region] Onset: 01-18-2019 10-03-2021 Chronic Substance-related disorders (7 sources) Cigarette smoker ; Translations: [Nicotine dependence, cigarettes, uncomplicated] Chronic Viral infection (3 sources) Recurrent herpes simplex labialis; Translations: [Herpesviral vesicular dermatitis] Episodic Past or Other Problems Problem Classification Problem Date Documented Date Episodic/Chronic Bacterial infection; unspecified site (1 source) Other specified bacterial agents as the cause of diseases classified elsewhere; Translations: [Bacterial sinusitis] Onset: 03-03-2024 Episodic Blindness and vision defects (20 sources) Transient visual loss, bilateral; Translations: [Transient visual loss] Onset: 02-03-2020 02-03-2020 Episodic Cancer of cervix (20 sources) Cervicovaginal cytology: Low grade squamous intraepithelial lesion; Translations: [Low grade squamous intraepithelial lesion on cytologic smear of cervix (LGSIL)] Onset: 01-10-2020 01-10-2020 Episodic Cardiac dysrhythmias (20 sources) Tachycardia; Translations: [Tachycardia, unspecified] Onset: 08-07-2022 08-07-2022 Episodic Headache; including migraine (20 sources) Headache; Translations: [Headaches] Onset: 01-10-2020 01-10-2020 Episodic Residual codes; unclassified (19 sources) Tobacco use and exposure - finding; Translations: [Tobacco use] Onset: 09-14-2015 Resolved: 08-07-2022 09-04-2016 Episodic Residual codes; unclassified (19 sources) Tobacco user; Translations: [Tobacco use] Onset: 09-14-2015 Resolved: 08-07-2022 01-07-2019 Episodic Spondylosis; intervertebral disc disorders; other back problems (20 sources) Lumbar radiculopathy; Translations: [Radiculopathy, lumbar region] Onset: 04-11-2019 12-01-2021 Episodic Sprains and strains (1 source) Strain of muscle, fascia and tendon of lower back, initial encounter; Translations: [Strain of muscle, fascia and tendon of lower back, initial encounter] Onset: 05-06-2017 Episodic Results Test Name Value Interpretation Reference Range [facility] Letter Text Normal [facility] ECG COMPLETEon 08-11-2024 ECG COMPLETE Ventricular Rate : 6 0 BPM Atrial Rate : 60 BPM P-R Interval : 148 ms QRS Duration : 88 ms Q-T Interval : 442 ms QTC Calculation(Bazett) : 442 ms Calculated P [place] : 63 degrees Calculated R [place] : 61 degrees Calculated T [place] : 64 degrees NORMAL SINUS RHYTHM NORMAL ECG NO PREVIOUS ECGS AVAILABLE Confirmed by MD BUTT VINAYAK ([id number]) on 08/13/2024 3:26:44 PM NAME : AIDE LAZO PID : [id number] : 1980 Gender : Female Race : ORD : [id number] Procedure Date : Aug 11 2024 16:04:49 Edit Date : Aug 13 2024 15:26:47 Diagnosis: NORMAL SINUS RHYTHM NORMAL ECG NO PREVIOUS ECGS AVAILABLE Confirmed by MD BUTT VINAYAK ([id number]) on 08/13/2024 3:26:44 PM Test Reason : HCS Location : 191 : L[facility] Overread By : MD BUTT VINAYAK Edited By : MD BUTT VINAYAK Referred By : JENS BEAVER Acquired by : NARCISO HA [facility] Basic metabolic 2000 panelon 08-05-2024 Anion gap [Moles/Vol] 10 mmol/L Normal 8-15 [facility] Comment on above: Order Comment: Berta amador Type: BLOOD SPECIMEN Ordering Facility: [facility] Address: [address] [place] [address] Performed By: #### 2 4321-2 #### [facility] CLIA [id number] [address] [place] [address] [place] Calcium [Mass/Vol] 9.1 mg/dL Normal 8.5-10.2 [facility] Comment on above: Order Comment: Berta amador Type: BLOOD SPECIMEN Ordering Facility: [facility] Address: [address] [place] [address] Performed By: #### 2 4321-2 #### [facility] CLIA [id number] [address] [place] [address] [place] Chloride [Moles/Vol] 106 mmol/L Normal 98-107 [facility] Comment on above: Order Comment: Speci men Type: BLOOD SPECIMEN Ordering Facility: [facility] Address: [address] [place] [address] Performed By: #### 2 4321-2 #### [facility] CLIA [id number] [address] [place] [address] [place] CO2 [Moles/Vol] 22 mmol/L Normal 22-30 [facility] Comment on above: Order Comment: Speci men Type: BLOOD SPECIMEN Ordering Facility: [facility] Address: [address] [place] [address] Performed By: #### 2 4321-2 #### [facility] CLIA [id number] [address] [place] [address] [place] Creatinine [Mass/Vol] 0.60 mg/dL Normal 0.58-0.96 [facility] Comment on above: Order Comment: Speci men Type: BLOOD SPECIMEN Ordering Facility: [facility] Address: [address] [place] [address] Performed By: #### 2 4321-2 #### [facility] CLIA [id number] [address] [place] [address] [facility] [place] Creatinine and Glomerular filtration rate.predicted panel (S/P/Bld) 116 mL/min/1.73m??? Normal >=60 [facility] Comment on above: Order Comment: Speci men Type: BLOOD SPECIMEN Ordering Facility: [facility] Address: [address] [place] [address] Result Comment: Rita mated Glomerular Filtration Rate (eGFR) is calculated using the 2020 CKD-EPI creatinine equation. This equation utilizes serum creatinine, sex, and age as parameters. The creatinine assay has traceable calibration to isotope dilution-mass spectrometry. Refer to KDIGO guidelines for clinical interpretation. In patients with unstable renal function, e.g. those with acute kidney injury, the eGFR may not accurately reflect actual GFR. Performed By: #### 2 4321-2 #### [facility] CLIA [id number] [address] [place] [address] [place] Glucose [Mass/Vol] 96 mg/dL Normal 74-99 [facility] Comment on above: Order Comment: Berta amador Type: BLOOD SPECIMEN Ordering Facility: [facility] Address: [address] [place] [address] Result Comment: The [place] Diabetes Association (ADA) provides guidance for cutoff values for fasting glucose and random glucose. The ADA defines fasting as no caloric intake for at least 8 hours. Fasting plasma glucose results between 100 to 125 mg/dL indicate increased risk for diabetes (prediabetes). Fasting plasma glucose results greater than or equal to 126 mg/dL meet the criteria for diagnosis of diabetes. In the absence of unequivocal hyperglycemia, results should be confirmed by repeat testing. In a patient with classic symptoms of hyperglycemia or hyperglycemic crisis, random plasma glucose results greater than or equal to 200 mg/dL meet the criteria for diagnosis of diabetes. Reference: Standards of Medical Care in Diabetes 2016, [place] [employer] Association. Diabetes Care. 2016.39(Suppl 1). Performed By: #### 2 4321-2 #### [facility] CLIA [id number] [address] [place] [address] [place] Potassium [Moles/Vol] 3.7 mmol/L Normal 3.7-5.1 [facility] Comment on above: Order Comment: Berta amador Type: BLOOD SPECIMEN Ordering Facility: [facility] Address: [address] [place] [address] Performed By: #### 2 4321-2 #### [facility] CLIA [id number] [address] [place] [address] [place] Sodium [Moles/Vol] 138 mmol/L Normal 136-144 [facility] Comment on above: Order Comment: Berta amador Type: BLOOD SPECIMEN Ordering Facility: [facility] Address: [address] [place] [address] Performed By: #### 2 4321-2 #### [facility] CLIA [id number] [address] [place] [address] [place] [facility] Urea nitrogen [Mass/Vol] 7 mg/dL Normal 7-21 [facility] Comment on above: Order Comment: Speci men Type: BLOOD SPECIMEN Ordering Facility: [facility] Address: [address] [place] [address] Performed By: #### 2 4321-2 #### [facility] CLIA [id number] [address] [place] [address] [place] [facility] CBC panel Auto (Bld)on 08-05 Erythrocyte distribution width (RBC) [Ratio] 12.8 % Normal 11.5-15.0 [facility] Comment on above: Order Comment: Speci men Type: BLOOD SPECIMENOrdering Facility: [facility] Address: [address] [place] [address] Performed By: #### 5 8410-2 ####[facility] [id number] [place] [address] [facility] Hematocrit (Bld) [Volume fraction] 38.3 % Normal 36.0-46.0 [facility] Comment on above: Order Comment: Speci men Type: BLOOD SPECIMENOrdering Facility: [facility] Address: [address] [place] [address] Performed By: #### 5 8410-2 ####[facility] [id number] [place] [address] [facility] Hemoglobin (Bld) [Mass/Vol] 12.2 g/dL Normal 11.5-15.5 [facility] Comment on above: Order Comment: Speci men Type: BLOOD SPECIMENOrdering Facility: [facility] Address: [address] [place] [address] Performed By: #### 5 8410-2 ####[facility] [id number] [place] [address] [place] MCH (RBC) [Entitic mass] 29.1 pg Normal 26.0-34.0 [facility] Comment on above: Order Comment: Speci men Type: BLOOD SPECIMENOrdering Facility: [facility] Address: [address] [place] [address] Performed By: #### 5 8410-2 ####[facility] [id number] [place] [address] [place] MCHC (RBC) [Mass/Vol] 31.9 g/dL Normal 30.5-36.0 [facility] Comment on above: Order Comment: Speci men Type: BLOOD SPECIMENOrdering Facility: [facility] Address: [address] [place] [address] Performed By: #### 5 8410-2 ####[facility] [id number] [place] [address] [place] MCV (RBC) [Entitic vol] 91.4 fL Normal 80.0-100.0 [facility] Comment on above: Order Comment: Speci men Type: BLOOD SPECIMENOrdering Facility: [facility] Address: [address] [place] [address] Performed By: #### 5 8410-2 ####[facility] [id number] [place] [address] [place] Platelet mean volume (Bld) [Entitic vol] 10.1 fL Normal 9.0-12.7 [facility] Comment on above: Order Comment: Speci men Type: BLOOD SPECIMENOrdering Facility: [facility] Address: [address] [place] [address] Performed By: #### 5 8410-2 ####[facility] [id number] [place] [address] [facility] [place] Plate[place] (Bld) [#/Vol] 220 10*3/uL Normal 150-400 [facility] Comment on above: Order Comment: Speci men Type: BLOOD SPECIMENOrdering Facility: [facility] Address: [address] [place] [address] Performed By: #### 5 8410-2 ####[facility] [id number] [place] [address] [facility] RBC (Bld) [#/Vol] 4.19 10*6/uL Normal 3.90-5.20 [facility] Comment on above: Order Comment: Speci men Type: BLOOD SPECIMENOrdering Facility: [facility] Address: [address] [place] [address] Performed By: #### 5 8410-2 ####[facility] [id number] [place] [address] [facility] WBC (Bld) [#/Vol] 3.70 10*3/uL Normal 3.70-11.00 [facility] Comment on above: Order Comment: Speci men Type: BLOOD SPECIMENOrdering Facility: [facility] Address: [address] [place] [address] Performed By: #### 5 8410-2 ####[facility]IA [id number] [place] [id number] [facility] Fei 08-04-2024 MARY Telephone (LILI) ----- AIDE LAZO ([id number]) 1980 F [facility] Date Time Provider Department 08/04/24 JENS BEAVER During your visit today, we recorded the following information about you: Jens Beaver APRN.CNP 08/04/2024 8:52 AM Signed Received form for medical clearance for surgery - scheduled on 08/31/24. She needs a preop visit. I ordered labs for her. It can be virtual if needed but in person preferred. ZUNILDA Villanueva Julie, MA 08/04/2024 9:11 AM Signed Patient is informed and she will call back to schedule BRETT Franco Kristin C, APRN.NAMAN 08/16/2024 8:43 AM Signed Blood work, visit, and EKG are complete - please fax medical clearance form. Thank you. Jens Beaver APRN.NAMAN Daquan BaconBRETT 08/16/2024 10:06 AM Signed Faxed everything . Placed in immediate scanning. Daquan Bacon MA Allergies As of Date: 08/04/2024 (No Known Allergies) Date Reviewed: 03/03/2024 Reviewed by: Evette Benitez DO - Fully Assessed Reason for Visit: Forms [913] Cmt: Medical Clearance for Surgery Primary Visit Diagnosis:Preop examination [Z01.818] Order(s):BASIC METABOLIC PANEL [SQBMP] Order #: [id number] FUTURE COMPLETE BLOOD COUNT [SQCBC] Order #: [id number] FUTURE Prescriptions as of 08/16/2024 - albuterol HFA (PROVENTIL HFA, VENTOLIN HFA) 90 mcg/actuation inhaler Inhale 2 Puffs as instructed every 4 hours as needed for wheezing/shortness of breath. - metoprolol tartrate, short acting, (LOPRESSOR) 25 mg tablet take 1/2 tablet by mouth twice daily - varenicline (CHANTIX) 0.5 mg tablet TAKE 1 TAB DAILY X 3 DAYS,THEN 1 TAB TWICE DAILY X 3 DAYS, THEN 2 TABS TWICE DAILY FOR 22 DAYS - loratadine (CLARITIN) 10 mg tablet take 1 tablet by mouth every day - acyclovir (ZOVIRAX) 400 mg tablet take 1 tablet by mouth three times a day - clonazePAM (KLONOPIN) 0.5 mg tablet Take 1 tablet by mouth every 12 hours. - FLUoxetine (PROZAC) 10 mg capsule Take 10 mg by mouth every morning. - nicotine (NICODERM) 21 mg/24 hr APPLY 1 PATCH DIRECTED EVERY 24 HOURS. - fluticasone (FLONASE) 50 mcg/actuation nasal spray spray 1 spray into each nostril every day - nicotine (NICODERM) 14 mg/24 hr APPLY 1 PATCH DIRECTED EVERY 24 HOURS. - nicotine (NICODERM) 7 mg/24 hr Apply 1 Patch as directed every 24 hours for 14 days. - tiZANidine (ZANAFLEX) 4 mg tablet TAKE 1 TABLET BY MOUTH 2 TIMES A DAY NEEDED Problem List As Of Date 08/04/2024 Noted Resolved History of surgical procedure [Z98.890] 09/14/2015 Tobacco use [Z72.0] 09/14/2015 08/07/2022 Tobacco abuse [Z72.0] 09/14/2015 08/07/2022 H/O bilateral salpingectomy [Z90.79] 09/14/2015 Low grade squamous intraepithelial lesion on cy*01/10/2020 Headaches [R51.9] 01/10/2020 Transient visual loss, bilateral [H53.123] 02/03/2020 Chorioretinal scar of right eye [H31.001] 02/03/2020 Lumbosacral spondylosis without myelopathy [M47*01/18/2019 Lumbar radiculopathy [M54.16] 03/11/2019 Thoracic and lumbosacral neuritis [M54.14, M54.*02/11/2019 Tachycardia [R00.0] 08/07/2022 Encounter Status:Closed by MARYCARMEN LEVY on 08/04/24 [facility] Fei 08-03-2024 MARY Telephone (LILI) ----- AIDE LAZO ([id number]) 1980 F [facility] Date Time Provider Department 08/03/24 JENS BEAVER During your visit today, we recorded the following information about you: Allergies As of Date: 08/03/2024 (No Known Allergies) Date Reviewed: 03/03/2024 Reviewed by: Evette Benitez DO - Fully Assessed Reason for Visit: clearance form [Other] Cmt: Form put in red folder Prescriptions as of 08/03/2024 - metoprolol tartrate, short acting, (LOPRESSOR) 25 mg tablet take 1/2 tablet by mouth twice daily - varenicline (CHANTIX) 0.5 mg tablet TAKE 1 TAB DAILY X 3 DAYS,THEN 1 TAB TWICE DAILY X 3 DAYS, THEN 2 TABS TWICE DAILY FOR 22 DAYS - loratadine (CLARITIN) 10 mg tablet take 1 tablet by mouth every day - acyclovir (ZOVIRAX) 400 mg tablet take 1 tablet by mouth three times a day - albuterol HFA (PROVENTIL HFA, VENTOLIN HFA) 90 mcg/actuation inhaler INHALE 2 PUFFS BY MOUTH EVERY 4 TO 6 HOURS - amoxicillin-clavulanate potassium (AUGMENTIN) 875-125 mg per tablet Take 1 tablet by mouth every 12 hours. - clonazePAM (KLONOPIN) 0.5 mg tablet Take 1 tablet by mouth every 12 hours. - FLUoxetine (PROZAC) 10 mg capsule Take 10 mg by mouth every morning. - predniSONE (DELTASONE) 20 mg tablet Take 3 pills by mouth daily for 3 days, then 2 pills by mouth daily for 3 days, then 1 pill by mouth daily for 3 days - nicotine (NICODERM) 21 mg/24 hr APPLY 1 PATCH DIRECTED EVERY 24 HOURS. - fluticasone (FLONASE) 50 mcg/actuation nasal spray spray 1 spray into each nostril every day - nicotine (NICODERM) 14 mg/24 hr APPLY 1 PATCH DIRECTED EVERY 24 HOURS. - nicotine (NICODERM) 7 mg/24 hr Apply 1 Patch as directed every 24 hours for 14 days. 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] 02/03/2020 Lumbosacral spondylosis without myelopathy [M47*01/18/2019 Lumbar radiculopathy [M54.16] 03/11/2019 Thoracic and lumbosacral neuritis [M54.14, M54.*02/11/2019 Tachycardia [R00.0] 08/07/2022 Encounter Status:Closed by OTTO LONDONO on 08/03/24 [facility] CNCOon 03-05-2024 CNCO Letter Text [facility] CNPNon 03-05-2024 CNPN Telephone (AGFAMPLE) ----- AIDE LAZO ([id number]) 1980 [facility]] Date Time Provider Department 03/05/24 JENS BEAVER During your visit today, we recorded the following information about you: Daquan Bacon MA 03/05/2024 3:48 PM Signed Faxed patients FMLA papers to [employer] [phone]. Daquan Bacon MA Allergies As of Date: 03/05/2024 (No Known Allergies) Date Reviewed: 03/03/2024 Reviewed by: Evette Benitez DO - Fully Assessed Reason for Visit: FMLA Paperwork [0517] Cmt: FMLA Prescriptions as of 03/05/2024 - albuterol HFA (PROVENTIL HFA, VENTOLIN HFA) 90 mcg/actuation inhaler INHALE 2 PUFFS BY MOUTH EVERY 4 TO 6 HOURS - amoxicillin-clavulanate potassium (AUGMENTIN) 875-125 mg per tablet Take 1 tablet by mouth every 12 hours. - clonazePAM (KLONOPIN) 0.5 mg tablet Take 1 tablet by mouth every 12 hours. - FLUoxetine (PROZAC) 10 mg capsule Take 10 mg by mouth every morning. - doxycycline (VIBRA-TABS) 100 mg tablet Take 1 tablet by mouth two times a day for 10 days. - predniSONE (DELTASONE) 20 mg tablet Take 3 pills by mouth daily for 3 days, then 2 pills by mouth daily for 3 days, then 1 pill by mouth daily for 3 days - nicotine (NICODERM) 21 mg/24 hr APPLY 1 PATCH DIRECTED EVERY 24 HOURS. - metoprolol tartrate, short acting, (LOPRESSOR) 25 mg tablet take 1/2 tablet by mouth twice daily - loratadine (CLARITIN) 10 mg tablet take 1 tablet by mouth every day - fluticasone (FLONASE) 50 mcg/actuation nasal spray spray 1 spray into each nostril every day - acyclovir (ZOVIRAX) 400 mg tablet take 1 tablet by mouth three times a day - nicotine (NICODERM) 14 mg/24 hr APPLY 1 PATCH DIRECTED EVERY 24 HOURS. - nicotine (NICODERM) 7 mg/24 hr Apply 1 Patch as directed every 24 hours for 14 days. 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 Lm on vm requesting letter to have off work for next week. She states she just got her antibiotics right now . Please advise. BRETT Jose Kristin C, ANGELA.NAMAN 03/05/2024 4:29 PM Signed Taken care of in another encounter. Jens Beaver APRN.UTILIZATION MANAGEMENT RN Allergies As of Date: 03/05/2024 (No Known Allergies) Date Reviewed: 03/03/2024 Reviewed by: Evette Benitez DO - Fully Assessed Reason for Visit: Patient Question [4705] Cmt: Wants letter for work Prescriptions as of 03/05/2024 - albuterol HFA (PROVENTIL HFA, VENTOLIN HFA) 90 mcg/actuation inhaler INHALE 2 PUFFS BY MOUTH EVERY 4 TO 6 HOURS - amoxicillin-clavulanate potassium (AUGMENTIN) 875-125 mg per tablet Take 1 tablet by mouth every 12 hours. - clonazePAM (KLONOPIN) 0.5 mg tablet Take 1 tablet by mouth every 12 hours. - FLUoxetine (PROZAC) 10 mg capsule Take 10 mg by mouth every morning. - doxycycline (VIBRA-TABS) 100 mg tablet Take 1 tablet by mouth two times a day for 10 days. - predniSONE (DELTASONE) 20 mg tablet Take 3 pills by mouth daily for 3 days, then 2 pills by mouth daily for 3 days, then 1 pill by mouth daily for 3 days - nicotine (NICODERM) 21 mg/24 hr APPLY 1 PATCH DIRECTED EVERY 24 HOURS. - metoprolol tartrate, short acting, (LOPRESSOR) 25 mg tablet take 1/2 tablet by mouth twice daily - loratadine (CLARITIN) 10 mg tablet take 1 tablet by mouth every day - fluticasone (FLONASE) 50 mcg/actuation nasal spray spray 1 spray into each nostril every day - acyclovir (ZOVIRAX) 400 mg tablet take 1 tablet by mouth three times a day - nicotine (NICODERM) 14 mg/24 hr APPLY 1 PATCH DIRECTED EVERY 24 HOURS. - nicotine (NICODERM) 7 mg/24 hr Apply 1 Patch as directed every 24 hours for 14 days. 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] 02/03/2020 Lumbosacral spondylosis without myelopathy [M47*01/18/2019 Lumbar radiculopathy [M54.16] 03/11/2019 Thoracic and lumbosacral neuritis [M54.14, M54.*02/11/2019 Tachycardia [R00.0] 08/07/2022 Encounter Status:Closed by EVETTE BENITEZ on 03/05/24 [facility] [place] 03-03-2024 CNOV Office Visit (HARJIT ZAMARRIPA) ----- AIDE LAZO ([id number]) 1980 [facility]3] Date Time Provider Department 03/03/24 9:00 AM EVETTE BENITEZ During your visit today, we recorded the following information about you: Temperature Pulse Respiration Blood pressure 98.4 degrees 76/minute 16/minute 108/60 Weight Height 62.1 kg 1.676 m Evette Benitez, 03/19/2024 12:57 PM Signed Subjective HPI Pt has not felt well for a few weeks She tried getting better on her own with over the counter cold medication Because she was not getting better, she went to [facility] on 02/25 The did not do a chest xay Her upper back has been hurting between her shoulder blades She had a sore throat, strep test was negative She was diagnosed with pneumonia, given augmentin, prednisone, an inhaler She has been working this whole time, took sick time on Friday, went in on Friday and did OK, but yesterday, felt short of breath 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, 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, but her hand was shaking because she is not feeling well Her watch showed that her pulse was 120 She finished the steroids, has a day or two left of the antibiotics She was given albuterol with a spacer She is still coughing, has sinus drainage, sore throat, ear fullness, headache, fatigue Her chest hurts from coughing, and feels tight with breathing She vapes nicotine daily ALLERGIES No Known Allergies Current Outpatient Medications Medication Sig Dispense Refill albuterol HFA (PROVENTIL HFA, VENTOLIN HFA) 90 mcg/actuation inhaler INHALE 2 PUFFS BY MOUTH EVERY 4 TO 6 HOURS amoxicillin-clavulanate potassium (AUGMENTIN) 875-125 mg per tablet Take 1 tablet by mouth every 12 hours. clonazePAM (KLONOPIN) 0.5 mg tablet Take 1 tablet by mouth every 12 hours. FLUoxetine (PROZAC) 10 mg capsule Take 10 mg by mouth every morning. nicotine (NICODERM) 21 mg/24 hr APPLY 1 PATCH DIRECTED EVERY 24 HOURS. 28 Patch 1 metoprolol tartrate, short acting, (LOPRESSOR) 25 mg tablet take 1/2 tablet by mouth twice daily 90 tablet 1 loratadine (CLARITIN) 10 mg tablet take 1 tablet by mouth every day 90 tablet 1 fluticasone (FLONASE) 50 mcg/actuation nasal spray spray 1 spray into each nostril every day 48 mL 1 acyclovir (ZOVIRAX) 400 mg tablet take 1 tablet by mouth three times a day 21 tablet 2 tiZANidine (ZANAFLEX) 4 mg tablet TAKE 1 TABLET BY MOUTH 2 TIMES A DAY NEEDED predniSONE (DELTASONE) 20 mg tablet Take 2 tablets by mouth every afternoon. (Patient not taking: Reported on 03/03/2024) nicotine (NICODERM) 14 mg/24 hr APPLY 1 PATCH DIRECTED EVERY 24 HOURS. 30 Patch 1 nicotine (NICODERM) 7 mg/24 hr Apply 1 Patch as directed every 24 hours for 14 days. 14 Patch 0 No current facility-administered medications for this visit. ACTIVE PROBLEM LIST History of Surgical Procedure H/O Bilateral Salpingectomy Low Grade Squamous Intraepithelial Lesion On Cytologic Smear of Cervix (Lgsil) Headaches Transient Visual Loss, Bilateral Chorioretinal Scar of Right Eye Lumbosacral Spondylosis Without Myelopathy Lumbar Radiculopathy Thoracic and Lumbosacral Neuritis Tachycardia Social History Tobacco Use Smoking status: Former Packs/day: 1 Types: Cigarettes Quit date: 01/27/2020 Years since quittin.1 Smokeless tobacco: Current Types: Chew Tobacco comments: vape nicottine Vaping Use Vaping Use: current everyday user Substance Use Topics Alcohol use: Yes Comment: social Drug use: No Comment: Past; Type: cocaine, and opiates Family History Problem Relation Age of Onset other (Colorectal cancer) Father other (Depressive disorder) Sister Heart Mother Valve problem Macular Degen Mother Breast Cancer Paternal Grandmother No Known Problems Sister No Known Problems Sister Glaucoma Maternal Grandfather Reviewed past medical history, family history and surgeries. All medications and supplements were reviewed with the patient. Review of Systems Constitutional: Positive for malaise/fatigue. Negative for diaphoresis. HENT: Positive for congestion. Negative for hearing loss. Eyes: Negative for blurred vision and double vision. Respiratory: Positive for cough, sputum production and shortness of breath. Cardiovascular: Negative for palpitations and leg swelling. Gastrointestinal: Negative for constipation and diarrhea. Genitourinary: Negative for dysuria and frequency. Musculoskeletal: Negative for back pain, falls and joint pain. Skin: Negative for itching. Neurological: Negative for dizziness and weakness. Endo/Heme/Allergies: Does not bruise/bleed easily. Psychiatric/Behavioral: Negative for depression and substance abuse. The patient does not have insomnia. Objective BP 108/60 Pulse 76 Temp 36.9 ?C (98.4 ?F) Resp 16 Ht 167.6 cm (5' 6 ) Wt 62.1 kg (137 (more content not included)... Normal [facility] CNCOon 03-02-2024 CNCO Letter Text Normal [facility] COVID-19, MOLECULARon 2022 SARS-CoV-2 (COVID-19) Ab IA Ql Not detected Normal Not Detected [facility] Comment on above: Result Comment: This test was performed under the FDA's Emergency Use Authorization (EUA). Testing was performed using the Martino ID NOW COVID-19 assay on the ID NOW platform. This test has not been approved for use in asymptomatic patients and its performance in this patient population has not been evaluated. Negative results do not rule out the presence of SARS-CoV-2/COVID-19. Fact sheets for the EUA can be found at the following links: For Healthcare Providers: https://www.fda.gov/media/742304/download For Patients: https://www.fda.gov/media/543883/download XR CHEST AP/PA AND LATon XR CHEST AP/PA AND LAT EXAMINATION: XR CHEST AP/PA AND LAT 01/09/2023 12:33 pm HISTORY: ORDERING SYSTEM PROVIDED HISTORY: cough, TECHNOLOGIST PROVIDED HISTORY: Illness/Other Reason for exam: cough Cancer History: n Surgery, RadiationHistory: n Encounter Type: Initial Additional signs and symptoms: none ORDERING SYSTEM PROVIDED DIAGNOSIS CODES: FINDINGS: The lungs are clear. There is no focal lung consolidation, pleural effusion or pneumothorax. Pulmonary vasculature is within normal limits. The cardiomediastinal silhouette is normal. There is fusion instrumentation in the lumbar spine partially seen. IMPRESSION: 1. Clear lungs. No acute cardiopulmonary disease. Workstation ID: [id number] Dictated by: PIOTR BRAY on FriJan 09, 2023 12:50:39 PM EST Transcribed by: PIOTR BRAY on FriJan 09, 2023 12:50:39 PM EST Finalized by: PIOTR BRAY on FriJan 09, 2023 12:50:39 PM EST Normal [facility] Comment on above: Order Comment: Injur y/Trauma or Illness?:Illness/Other How long have you had these symptoms (acute/chronic)?:Acute Reason for exam?:cough History of cancer?:n Surgeries, chemotherapy, or radiation?:n Type of Exam?:Initial Additional signs and symptoms?:none Fei 01-15-2022 NAMANN Telephone (LILI) ----- AIDE LAZO ([id number]) 1980 F [facility] Date Time Provider Department 01/15/22 JENS BEAVER During your visit today, we recorded the following information about you: Daquan Bacon MA 01/15/2022 1:39 PM Signed ----- Message from Jens Beaver APRN.UTILIZATION MANAGEMENT RN sent at 01/15/2022 1:36 PM EDT ----- Normal. Jens Beaver APRN.NAMAN Bacon MA 01/15/2022 1:39 PM Signed Left message on patients voicemail labs normal. Daquan Bacon MA Allergies As of Date: 01/15/2022 (No Known Allergies) Date Reviewed: 10/03/2021 Reviewed by: Jens Beaver APRN.UTILIZATION MANAGEMENT RN - Fully Assessed Reason for Visit: Results [95] Prescriptions as of 01/15/2022 - metoprolol tartrate, short acting, (LOPRESSOR) 25 mg tablet Take 0.5 tablets by mouth twice daily. - benzonatate (TESSALON PERLES) 100 mg capsule Take 1-2 capsules by mouth three times daily as needed for cough. - acyclovir (ZOVIRAX) 400 mg tablet Take 1 tablet by mouth three times daily. - albuterol HFA (PROVENTIL HFA, VENTOLIN HFA) 90 mcg/actuation inhaler Inhale 2 Puffs as instructed. - ondansetron (ZOFRAN) 4 mg tablet Take 1 tablet by mouth every 6 hours as needed for nausea/vomiting. - loperamide HCl (IMODIUM A-D) 2 mg tab Take 2 tablets x1, then 1 tablet after each loose stool. Do not take more than 4 tablets in 24 hours. 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 AIDE LAZO ([id number]) 1980 F [facility] Date Time Provider Department 01/07/22 JENS BEAVER During your visit today, we recorded the following information about you: Daquan Bacon MA 01/07/2022 9:04 AM Signed ----- Message from Naomy Combs MA sent at 10/08/2021 10:05 AM EST ----- Recheck liver enzyme in 3 months BRETT Mccoy APRN.NAMAN 01/07/2022 11:09 AM Signed Thank you. Please see orders. Jens Beaver APRN.NAMAN Beaver APRN.NAMAN 01/07/2022 11:10 AM Signed Addended by: JENS BEAVER on: 01/07/2022 11:10 AM Modules accepted: Orders Daquan Bacon MA 01/07/2022 11:24 AM Signed Message left on patients vm to get labs done. (ok per life time consent). Daquan Bacon MA Allergies As of Date: 01/07/2022 (No Known Allergies) Date Reviewed: 10/03/2021 Reviewed by: Jens Beaver APRN.NAMAN - Fully Assessed Reason for Visit: Orders [681] Primary Visit Diagnosis:Elevated liver enzymes [R74.8] Order(s):HEPATIC FUNCTION PNL [SQHFP] Order #: [id number] FUTURE Prescriptions as of 01/07/2022 - metoprolol tartrate, short acting, (LOPRESSOR) 25 mg tablet Take 0.5 tablets by mouth twice daily. - benzonatate (TESSALON PERLES) 100 mg capsule Take 1-2 capsules by mouth three times daily as needed for cough. - acyclovir (ZOVIRAX) 400 mg tablet Take 1 tablet by mouth three times daily. - albuterol HFA (PROVENTIL HFA, VENTOLIN HFA) 90 mcg/actuation inhaler Inhale 2 Puffs as instructed. - ondansetron (ZOFRAN) 4 mg tablet Take 1 tablet by mouth every 6 hours as needed for nausea/vomiting. - loperamide HCl (IMODIUM A-D) 2 mg tab Take 2 tablets x1, then 1 tablet after each loose stool. Do not take more than 4 tablets in 24 hours. 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 Fei 11-08-2021 MARY Telephone (NEOFAMPDALLIN) ----- AIDE LAZO ([id number]) 1980 [facility]3] Date Time Provider Department 11/08/21 JENS BEAVER During your visit today, we recorded the following information about you: Naomy Combs MA 11/08/2021 2:25 PM Signed ----- Message from Jens Beaver APRN.UTILIZATION MANAGEMENT RN sent at 11/08/2021 11:20 AM EST ----- Normal PFTs. ZUNILDA Villanueva MA 11/08/2021 2:26 PM Signed Called patient and left a vm per lifetime consent and left results. Naomy Combs MA Allergies As of Date: 11/08/2021 (No Known Allergies) Date Reviewed: 10/03/2021 Reviewed by: Jens Beaver APRN.CNP - Fully Assessed Reason for Visit: Results [95] Prescriptions as of 11/08/2021 - metoprolol tartrate, short acting, (LOPRESSOR) 25 mg tablet Take 0.5 tablets by mouth twice daily. - benzonatate (TESSALON PERLES) 100 mg capsule Take 1-2 capsules by mouth three times daily as needed for cough. - acyclovir (ZOVIRAX) 400 mg tablet Take 1 tablet by mouth three times daily. - albuterol HFA (PROVENTIL HFA, VENTOLIN HFA) 90 mcg/actuation inhaler Inhale 2 Puffs as instructed. - ondansetron (ZOFRAN) 4 mg tablet Take 1 tablet by mouth every 6 hours as needed for nausea/vomiting. - loperamide HCl (IMODIUM A-D) 2 mg tab Take 2 tablets x1, then 1 tablet after each loose stool. Do not take more than 4 tablets in 24 hours. 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 Fei 10-18-2021 MARY Telephone (LILI) ----- AIDE LAZO ([id number]) 1980 [facility]] Date Time Provider Department 10/18/21 JENS BEAVER During your visit today, we recorded the following information about you: Bry Flores MA 10/18/2021 2:49 PM Signed ----- Message from Jens Beaver APRN.UTILIZATION MANAGEMENT RN sent at 10/18/2021 11:08 AM EST ----- Normal. Jens Beaver APRN.UTILIZATION MANAGEMENT RN Bry Flores MA 10/18/2021 2:49 PM Signed Left message informing patient of echo results. Bry Flores MA Allergies As of Date: 10/18/2021 (No Known Allergies) Date Reviewed: 10/03/2021 Reviewed by: Jens Beaver APRN.UTILIZATION MANAGEMENT RN - Fully Assessed Reason for Visit: Results [95] Prescriptions as of 10/18/2021 - metoprolol tartrate, short acting, (LOPRESSOR) 25 mg tablet Take 0.5 tablets by mouth twice daily. - benzonatate (TESSALON PERLES) 100 mg capsule Take 1-2 capsules by mouth three times daily as needed for cough. - fluticasone (FLOVENT HFA) 110 mcg/actuation inhaler Inhale 1 Puff as instructed daily at bedtime. Shake well before use. Rinse mouth after use. - acyclovir (ZOVIRAX) 400 mg tablet Take 1 tablet by mouth three times daily. - albuterol HFA (PROVENTIL HFA, VENTOLIN HFA) 90 mcg/actuation inhaler Inhale 2 Puffs as instructed. - ondansetron (ZOFRAN) 4 mg tablet Take 1 tablet by mouth every 6 hours as needed for nausea/vomiting. - loperamide HCl (IMODIUM A-D) 2 mg tab Take 2 tablets x1, then 1 tablet after each loose stool. Do not take more than 4 tablets in 24 hours. 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 Fei 10-09-2021 MARY Telephone (AGFAMPLE) ----- AIDE LAZO ([id number]) 1980 [facility]3] Date Time Provider Department 10/09/21 JENS BEAVER During your visit today, we recorded the following information about you: Naomy Combs MA 10/09/2021 2:49 PM Signed ----- Message from Jens Beaver APRN.UTILIZATION MANAGEMENT RN sent at 10/09/2021 2:38 PM EST ----- Final read on EKG is normal sinus rhythm. Jens Beaver APRN.NAMAN Combs MA 10/09/2021 3:14 PM Signed Called patient and informed her results Naomy Combs MA Allergies As of Date: 10/09/2021 (No Known Allergies) Date Reviewed: 10/03/2021 Reviewed by: Jens Beaver APRN.UTILIZATION MANAGEMENT RN - Fully Assessed Reason for Visit: Results [95] Prescriptions as of 10/09/2021 - metoprolol tartrate, short acting, (LOPRESSOR) 25 mg tablet Take 0.5 tablets by mouth twice daily. - benzonatate (TESSALON PERLES) 100 mg capsule Take 1-2 capsules by mouth three times daily as needed for cough. - fluticasone (FLOVENT HFA) 110 mcg/actuation inhaler Inhale 1 Puff as instructed daily at bedtime. Shake well before use. Rinse mouth after use. - acyclovir (ZOVIRAX) 400 mg tablet Take 1 tablet by mouth three times daily. - albuterol HFA (PROVENTIL HFA, VENTOLIN HFA) 90 mcg/actuation inhaler Inhale 2 Puffs as instructed. - ondansetron (ZOFRAN) 4 mg tablet Take 1 tablet by mouth every 6 hours as needed for nausea/vomiting. - loperamide HCl (IMODIUM A-D) 2 mg tab Take 2 tablets x1, then 1 tablet after each loose stool. Do not take more than 4 tablets in 24 hours. 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 Fe[facility] 10-07-2021 MARY Telephone (AGFAMPLE) ----- AIDE LAZO ([id number]) 1980 [facility]3] Date Time Provider Department 10/07/21 JENS BEAVER During your visit today, we recorded the following information about you: Jens Beaver APRN.NAMAN 10/07/2021 1:49 PM Signed Chest x-ray is normal. Labs are normal besides very mildly elevated liver enzyme. Recheck liver enzymes in 3 months. Jens Beaver APRN.NAMAN Combs MA 10/09/2021 3:16 PM Addendum Called patient and informed her results and placed a reminder Naomy Combs MA Allergies As of Date: 10/07/2021 (No Known Allergies) Date Reviewed: 10/03/2021 Reviewed by: Jens Beaver APRN.NAMAN - Fully Assessed Reason for Visit: Results [95] Cmt: chest x-ray and labs Prescriptions as of 10/09/2021 - metoprolol tartrate, short acting, (LOPRESSOR) 25 mg tablet Take 0.5 tablets by mouth twice daily. - benzonatate (TESSALON PERLES) 100 mg capsule Take 1-2 capsules by mouth three times daily as needed for cough. - fluticasone (FLOVENT HFA) 110 mcg/actuation inhaler Inhale 1 Puff as instructed daily at bedtime. Shake well before use. Rinse mouth after use. - acyclovir (ZOVIRAX) 400 mg tablet Take 1 tablet by mouth three times daily. - albuterol HFA (PROVENTIL HFA, VENTOLIN HFA) 90 mcg/actuation inhaler Inhale 2 Puffs as instructed. - ondansetron (ZOFRAN) 4 mg tablet Take 1 tablet by mouth every 6 hours as needed for nausea/vomiting. - loperamide HCl (IMODIUM A-D) 2 mg tab Take 2 tablets x1, then 1 tablet after each loose stool. Do not take more than 4 tablets in 24 hours. 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 CNOVon 10-03-2021 CNOV Office Visit (HARJIT ZAMARRIPA) ----- AIDE LAZO ([id number]) 1980 F [place] Date Time Provider Department 10/03/21 4:00 PM JENS BEAVER During your visit today, we recorded the following information about you: Temperature Pulse Blood pressure Weight 99 degrees 98/minute 110/60 56.2 kg Height 1.676 m Jens Beaver APRN.CNP 10/03/2021 6:22 PM Signed This note was created using Decisive BIriter. Subjective Aide Lazo is a 40 year old female here today for COVID19 follow-up, cough. I reviewed past medical, surgical, social, and family histories today and updated chart. Allergies, chronic medications, and supplements were also reviewed. Symptom onset date: 08/03/21 COVID positive date: 08/04/21 She is still coughing. Worse at night. Small amount of clear sputum. Didn't cough a lot when she was home with COVID. Seemed to start when she went back to work No sore throat SOB sometimes Today was at work and heart rate shot up and she had trouble breathing. Her smart watch said HR was 160. Then she worries and panics. It will occur when she is at rest She will rest and drink fluids to feel better She stopped pop Drinking tea 1 cup coffee in the morning Vapes menthol Jewl, nicotine 3-5% No history of asthma PAST MEDICAL HISTORY Diagnosis Date - Anxiety - Chronic back pain - Back and neck - Depressive disorder - Drug abuse in remission (HCC) - Generalized anxiety disorder - Known medical problems Heavy cigarette smoker (20-39 cigs/day) - Neck pain - Substance abuse (HCC) - Viral hepatitis C PAST SURGICAL HISTORY Procedure Laterality Date - BACK SURGERY HX 06/2019 Discotomy and lamniectomy, Dr. Benny Alston ALLERGIES Patient has no known allergies. MEDICATIONS acyclovir (ZOVIRAX) 400 mg tablet Take 1 tablet by mouth three times daily. ondansetron (ZOFRAN) 4 mg tablet Take 1 tablet by mouth every 6 hours as needed for nausea/vomiting. loperamide HCl (IMODIUM A-D) 2 mg tab Take 2 tablets x1, then 1 tablet after each loose stool. Do not take more than 4 tablets in 24 hours. albuterol HFA (PROVENTIL HFA, VENTOLIN HFA) 90 mcg/actuation inhaler Inhale 2 Puffs as instructed. FAMILY HISTORY Problem Relation Age of Onset - other (Colorectal cancer) Father - other (Depressive disorder) Sister - Heart Mother Valve problem - Macular Degen Mother - Breast Cancer Paternal Grandmother - No Known Problems Sister - No Known Problems Sister - Glaucoma Maternal Grandfather Social History Tobacco Use - Smoking status: Current Every Day Smoker Packs/day: 1.00 Types: Cigarettes Last attempt to quit: 01/27/2020 Years since quittin.6 - Smokeless tobacco: Former User Types: Chew - Tobacco comment: vape nicottine Vaping Use - Vaping Use: current everyday user Substance Use Topics - Alcohol use: Yes Comment: social - Drug use: No Comment: Past; Type: cocaine, and opiates Review of Systems Constitutional: Positive for fatigue. Negative for appetite change, chills, fever and unexpected weight change. HENT: Positive for congestion (Sometimes in the mornings). Negative for ear pain, rhinorrhea and sore throat. Eyes: Negative for pain, discharge, itching and visual disturbance. Respiratory: Positive for cough and shortness of breath. Negative for wheezing. Cardiovascular: Positive for palpitations. Negative for chest pain and leg swelling. Gastrointestinal: Negative for abdominal pain, constipation, diarrhea, nausea and vomiting. Genitourinary: Negative for difficulty urinating. Musculoskeletal: Positive for back pain. Negative for arthralgias. Right sided back pain - everytime she coughs it hurts bad back there Skin: Negative for rash. Neurological: Positive for headaches. Negative for dizziness, tremors and weakness. Psychiatric/Behavioral: Negative for dysphoric mood and sleep disturbance. The patient is nervous/anxious. Getting a good 8 hours of sleep Taking mucinex night time syrup Boyfriend tells her she's coughing all night Brain fog Trouble concentrating No memory loss really - maybe a little bit short term Getting through her work day is okay Objective BP 110/60 Pulse 98 Temp 37.2 ?C (99 ?F) Ht 167.6 cm (5' 6 ) Wt 56.2 kg (124 lb) LMP 06/24/2020 SpO2 100% BMI 20.01 kg/m? Physical Exam Constitutional: General: She is not in acute distress. Appearance: She is well-developed. She is not toxic-appearing. HENT: Head: Normocephalic and atraumatic. Right Ear: Hearing, tympanic membrane, ear canal and external ear normal. No drainage. Tympanic membrane is not injected or bulging. Left Ear: Hearing, tympanic membrane, ear canal and external ear normal. No drainage. Tympanic membrane is not injected or bulging. Nose: Nose normal. No mucosal edema or rhinorrhea. Mouth/Throat: Lips: [place]. Mouth: Muc (more content not included)... [facility] CNPN Telephone (AGINTMLW) ----- AIDE LAZO ([id number]) 1980 [facility]3] Date Time Provider Department 09/06/21 JENS BEAVER AGINTLISET During your visit today, we recorded the following information about you: Darby Villalba 09/06/2021 3:49 PM Signed Patient stopped in today 09/06/2021. She dropped off an Exemption form for the COVID-19 vaccination. Pt. Had covid a month ago and was advised to not get vaccine for at least 90 days, her employer is requiring her to get the form filled out stating she is exempt. Form placed in Trinishant folder in front office. Please fax form when completed to [phone]. Mail original to Patient after faxed. Darby Bacon MA 09/07/2021 9:39 AM Signed Placed in red folder. BRETT Jose APRN.[facility] 09/10/2021 8:15 AM Signed Thank you, form is completed and signed. Jens Beaver APRN.NAMAN Bacon MA 09/10/2021 8:34 AM Signed Faxed, mailed original and copy placed in chart. Daquan Bacon MA Allergies As of Date: 09/06/2021 (No Known Allergies) Date Reviewed: 08/25/2021 Reviewed by: Jens Beaver APRN.UTILIZATION MANAGEMENT RN - Fully Assessed Reason for Visit: Exemption Form for Vaccine [Other] Prescriptions as of 09/10/2021 - docosanol (ABREVA) 10 % crea Apply to affected area five times daily for 10 days. - acyclovir (ZOVIRAX) 400 mg tablet Take 1 tablet by mouth three times daily. - albuterol HFA (PROVENTIL HFA, VENTOLIN HFA) 90 mcg/actuation inhaler Inhale 2 Puffs as instructed. - ondansetron (ZOFRAN) 4 mg tablet Take 1 tablet by mouth every 6 hours as needed for nausea/vomiting. - loperamide HCl (IMODIUM A-D) 2 mg tab Take 2 tablets x1, then 1 tablet after each loose stool. Do not take more than 4 tablets in 24 hours. 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 08-30-2021 MARY Telephone (LILI) ----- AIDE LAZO ([id number]) 1980 F [facility] Date Time Provider Department 08/30/21 JENS BEAVER During your visit today, we recorded the following information about you: Bry Flores MA 08/30/2021 12:37 PM Signed Patient left message stating she had Covid a couple weeks ago and her work is now mandating the Covid vaccine. Patient would like to know how long she needs to wait from having Covid to get the vaccine. Please advise. BRETT Westbrook APRN.UTILIZATION MANAGEMENT RN 08/31/2021 9:53 AM Signed I would recommend waiting about 3 months, so anytime after November 22, see letter sent through [employer]. Jens Beaver APRN.UTILIZATION MANAGEMENT RN Daquan Bacon MA 08/31/2021 11:14 AM Signed Sent message through my chart. Daquan Bacon MA Allergies As of Date: 08/30/2021 (No Known Allergies) Date Reviewed: 08/25/2021 Reviewed by: Jens Beaver APRN.UTILIZATION MANAGEMENT RN - Fully Assessed Reason for Visit: Patient Question [9157] Prescriptions as of 08/31/2021 - albuterol HFA (PROVENTIL HFA, VENTOLIN HFA) 90 mcg/actuation inhaler Inhale 2 Puffs as instructed. - doxycycline hyclate (VIBRAMYCIN) 100 mg capsule Take 1 capsule by mouth twice daily for 10 days. - ondansetron (ZOFRAN) 4 mg tablet Take 1 tablet by mouth every 6 hours as needed for nausea/vomiting. - loperamide HCl (IMODIUM A-D) 2 mg tab Take 2 tablets x1, then 1 tablet after each loose stool. Do not take more than 4 tablets in 24 hours. 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 Comment on above: Result Comment: Nega tive for COVID19 (SARS CoV2) by PCR. This test was developed and its performance characteristics determined by [facility] [place]. This test has been authorized by FDA under an Emergency Use Authorization (EUA). This test has been validated in accordance with the FDA's Guidance Document Policy for Diagnostics Testing in Laboratories Certified to Perform High Complexity Testing under CLIA prior to Emergency use Authorization for Coronavirus Disease 2019 during the Public Health Emergency issued on January 01, 2020. Performing Laboratory: [facility] [address] [place] [address] Performed By: #### L TSH #### [place] [address] Throat Rapid Grp A Strepon 0 06-25-2020 S. pyogenes Ag IA Ql (Unsp spec) see below Normal Negative [facility] Comment on above: Result Comment: Nega tive for group A Streptococcus antigen. Performed By: #### L TSH #### [place] [address] Urine HCG, Qual.on 0 Beta HCG ( test) Ql (U) Negative Normal Negative [facility] Comment on above: Performed By: #### L TSH #### [place] [address] Specific [place], Ur >=1.030 Normal 1.005-1.[address] [facility] Comment on above: Performed By: #### L TSH #### [place] [id number] XR CHEST 1V FRONTALon 2019 XR CHEST 1V FRONTAL Final Report DATE OF EXAM: Jun 25 2020 8:01PM LDX 5290 - XR CHEST 1V FRONTAL / PROCEDURE REASON: Cough, new onset Physician Interpretation EXAMINATION: CHEST RADIOGRAPH (PORTABLE SINGLE VIEW AP) EXAM DATE/TIME: 06/25/2020 8:01 PM INDICATIONS: Cough, new onset MQ: XCPR_5 COMPARISON: None. RESULT: Lines, tubes, and devices: None. Lungs and pleura: No radiographically evident focal airspace opacities suggesting consolidation or other acute pathology. No radiographic evidence of pneumothorax or pleural effusion. Cardiomediastinal silhouette: The cardiomediastinal silhouette is unremarkable. The heart size is within normal limits. No acute osseous abnormality. IMPRESSION: No acute radiographic abnormality. Abrasive Coating Machine Operator: PSCB Transcribe Date/Time: Jun 25 2020 8:05P Dictated by : ESTRELLITA MEJIA MD This examination was interpreted and the report reviewed and electronically signed by: ESTRELLITA MEJIA MD on Jun 25 2020 8:05PM EST Normal [facility] MRI BRAIN WO/W IVCONon 01-25 MRI BRAIN WO/W IVCON * * *Final Report* * * DATE OF EXAM: Jan 26 2020 11:29AM LDM 0295 - MRI BRAIN WO/W IVCON / PROCEDURE REASON: Amaurosis fugax * * * * Physician Interpretation * * * * EXAMINATION: MRI BRAIN WO/W IVCON CLINICAL HISTORY: The patient presents with recent syncopal episode. Visual disturbances. TECHNIQUE: Routine brain MRI protocol without and with contrast including diffusion images. MQ: MRBWOW_2 Contrast: 12 ml mL Dotarem IV COMPARISON: None. RESULT: Acute Change: There is no evidence of restricted diffusion to suggest an acute infarct. Hemorrhage: No evidence of prior parenchymal hemorrhage on the gradient echo images. Mass Lesion/ Mass Effect: No evidence of an intracranial mass or extra-axial fluid collection. No abnormal parenchymal or leptomeningeal enhancement is noted following contrast administration. No significant mass effect. Chronic Change: The white matter is within normal limits of signal intensity for age. Parenchyma: No significant volume loss for age. The brain parenchyma is otherwise within normal limits of signal intensity and morphology. Ventricles: Normal caliber and morphology. Skull Base: Hypothalamic and pituitary region are grossly normal. Craniocervical junction is normal. No significant marrow replacement process. Vasculature: Major intracranial arterial structures, and dural venous sinuses show typical flow void, suggesting patency by spin echo criteria. Other: There is mild mucosal thickening bilateral maxillary sinuses and ethmoid air cells. Minimal mucosal thickening of the sphenoid sinus. Small volume aerated secretion noted within the dependent sphenoid sinus. The orbits and extracranial soft tissues are unremarkable. IMPRESSION: Normal MRI brain with and without contrast. Paranasal sinus disease as noted. Abrasive Coating Machine Operator: PHIL Transcribe Date/Time: Jan 26 2020 11:36A Dictated by : CARINA ACUNA MD This examination was interpreted and the report reviewed and electronically signed by: CARINA ACUNA MD on Jan 26 2020 11:43AM EST Normal [facility] HPV High Riskon 01-13-2020 HPV High Risk SEE BELOW Normal [facility] Comment on above: Result Comment: HPV HighRisk Type 16 SEE BELOW Negative for HPV DNA high risk type 16 by PCR. HPV HighRisk Type 18 SEE BELOW Negative for HPV DNA high risk type 18 by PCR. HPV HighRisk Other SEE BELOW Negative for HPV DNA high risk types: 31,33,35,39,45,51,52,56,58,59,66,68 by PCR. This test was developed and its performance characteristics determined by [facility] [place] ([facility]). It has not been cleared or approved by the FDA. -[facility] is regulated under CLIA as qualified to perform high-complexity testing. This test is used for clinical purposes. It should not be regarded as investigational or for research. Performing Laboratory: [facility] [address] [place] [address] Performed By: #### H PVRX #### [place] [address] CRPon 01-11-2020 CRP [Mass/Vol] mg/L Normal 0.00-0.30 [facility] Comment on above: Performed By: #### C RP3 #### [facility] [address] [place] [address] Comprehensive Panelon 2019 ALP [Catalytic activity/Vol] 77 U/L Normal 45-[address] [facility] Comment on above: Performed By: #### P 14 #### [place] [address] Bilirubin [Mass/Vol] 0.2 mg/dL Normal 0.2-1.[address] [facility] Comment on above: Result Comment: Use of this assay is not recommended for patients undergoing treatment with eltrombopag due to the potential for falsely elevated results. Performed By: #### P 14 #### [facility] [address] [place], [place] [address] Creatinine [Mass/Vol] 0.57 mg/dL Normal 0.51-0.[address] [facility] Comment on above: Result Comment: Use of this assay is not recommended for patients undergoing treatment with phenindione, due to the potential for falsely depressed results. Performed By: #### P 14 #### [facility] [address] [place], [place] [address] Protein [Mass/Vol] 7.3 g/dL Normal 6.4-8.[address] [facility] Comment on above: Performed By: #### P 14 #### [facility] [address] [place], [place] [address] ALT [Catalytic activity/Vol] 39 U/L Normal 12-[address] [facility] Comment on above: Performed By: #### P 14 #### [facility] [address] [place], [place] [address] AST [Catalytic activity/Vol] 22 U/L Normal 15-[address] [facility] Comment on above: Performed By: #### P 14 #### [facility] [address] [place], [place] [address] Glucose [Mass/Vol] 96 mg/dL Normal 70-[address] [facility] Comment on above: Performed By: #### P 14 #### [facility] [address] [place], [place] [address] Albumin [Mass/Vol] 3.5 g/dL Normal 3.4-5.[address] [facility] Comment on above: Performed By: #### P 14 #### [facility] [address] [place], [place] [address] Anion gap [Moles/Vol] 8 mmol/L Normal 8-[address] [facility] Comment on above: Performed By: #### P 14 #### [facility] [address] [place], [place] [address] Calcium [Mass/Vol] 8.8 mg/dL Normal 8.5-10.[address] [facility] Comment on above: Performed By: #### P 14 #### [facility] [address] [place], [place] [address] CO2 [Moles/Vol] 26 mmol/L Normal 21-32 [facility] Comment on above: Performed By: #### P 14 #### [facility] [address] [place], [place] [address] Urea nitrogen [Mass/Vol] 9 mg/dL Normal 7-[address] [facility] Comment on above: Performed By: #### P 14 #### [facility] [address] [place], [place] [address] Chloride [Moles/Vol] 111 mmol/L High 98-[address] [facility] Comment on above: Performed By: #### P 14 #### [facility] [address] [place], [place] [address] Potassium [Moles/Vol] 3.7 mmol/L Normal 3.5-5.[address] [facility] Comment on above: Performed By: #### P 14 #### [facility] [address] [place], [place] [address] Sodium [Moles/Vol] 141 mmol/L Normal 136-[address] [facility] Comment on above: Performed By: #### P 14 #### [facility] [address] [place], [place] [address] HPV High Riskon 01-11-2020 Cytology Normal [facility] Comment on above: Performed By: #### H PVRX #### [address] [address] MDRD GFRon 01-11-2020 GFR/1.73 sq M predicted among non-blacks MDRD (S/P/Bld) [Vol rate/Area] mL/min/{1.73_m2} Normal >60mL/min/1.[address] [facility] Comment on above: Result Comment: If t he patient is , multiply the result by 1.210. Performed By: #### G FR #### [address] [address] GC/Chlam Amp Genital/Rectal/ Oralon 01-10-2020 GC/Chlam Amp Genital/Rectal/Ora l Test performed at [facility] Negative for Neisseria gonorrhoeae by amplification. Negative for Chlamydia trachomatis by amplification. Endocervix Normal [facility] Comment on above: Performed By: #### G CCTP #### [facility] [address] [place] [address] Hemogram/Diffon 01-10-2020 Abs. Baso 0.02 thou/cmm Normal 0.00-0.08 [facility] Comment on above: Performed By: #### L CBCD #### [facility] [address] [place] [address] Abs. Allen 0.53 thou/cmm Normal 0.20-1.00 [facility] Comment on above: Performed By: #### L CBCD #### [place] [address] Abs. Neut (ANC) 3.76 thou/cmm Normal 3.00-5.[address] [facility] Comment on above: Performed By: #### L CBCD #### [place] [address] Basophils/100 WBC (Bld) 0.3 % Normal [facility] Comment on above: Performed By: #### L CBCD #### [place] [address] Eosinophils (Bld) [#/Vol] 0.36 thou/cmm Normal 0.00-0.[address] [facility] Comment on above: Performed By: #### L CBCD #### [place] [address] Eosinophils/100 WBC (Bld) 5.5 % Normal [facility] Comment on above: Performed By: #### L CBCD #### [place] [address] Erythrocyte distribution width (RBC) [Ratio] 13.2 % Normal 11.5-15.[address] [facility] Comment on above: Performed By: #### L CBCD #### [place] [address] Hematocrit (Bld) [Volume fraction] 38.0 % Normal 37.0-47.[address] [facility] Comment on above: Performed By: #### L CBCD #### [address] [address] Hemoglobin (Bld) [Mass/Vol] 12.1 g/dL Normal 12.0-16.[address] [facility] Comment on above: Performed By: #### L CBCD #### [address] [address] Lymphocytes (Bld) [#/Vol] 1.83 thou/cmm Normal 1.50-3.[address] [facility] Comment on above: Performed By: #### L CBCD #### [address] [address] Lymphocytes/100 WBC (Bld) 28.1 % Normal [facility] Comment on above: Performed By: #### L CBCD #### [place] [address] MCH (RBC) [Entitic mass] 30.3 pg Normal 27.0-31.[address] [facility] Comment on above: Performed By: #### L CBCD #### [place] [address] MCHC (RBC) [Mass/Vol] 31.8 % Low 32.0-36.[address] [facility] Comment on above: Performed By: #### L CBCD #### [place] [address] MCV (RBC) [Entitic vol] 95.2 fL Normal 81.0-99.[address] [facility] Comment on above: Performed By: #### L CBCD #### [address] [address] Monocytes/100 WBC (Bld) 8.1 % Normal [facility] Comment on above: Performed By: #### L CBCD #### [place] [address] Platelet mean volume (Bld) [Entitic vol] 10.0 fL Normal 7.1-10.[address] [facility] Comment on above: Performed By: #### L CBCD #### [facility] [address] [place], [place] [address] Platelets (Bld) [#/Vol] 186 thou/cmm Normal 150-[address] [facility] Comment on above: Performed By: #### L CBCD #### [facility] [address] [place] [address] RBC (Bld) [#/Vol] 3.99 mil/cmm Low 4.20-5.[address] [facility] Comment on above: Performed By: #### L CBCD #### [facility] [address] [place] [address] Seg Neutrophil 58.0 % Normal [facility] Comment on above: Performed By: #### L CBCD #### [facility] [address] [place] [address] WBC (Bld) [#/Vol] 6.5 thou/cmm Normal 4.8-10.[address] [facility] Comment on above: Performed By: #### L CBCD #### [facility] [address] [place] [address] Pap,Cyto Gynon 01-10-2020 Pap,Cyto [employer] Manager Test performed at [place] [address] NAME: AIDE LAZO REQUESTING: JENS BEAVER CNP SPECIMEN: TP CERVICAL/ENDOCERVICAL HPV REGARDLESS Relevant History: LMP: 01/08/2020 Prev. abnormal: LGSIL HPV+, SPECIMEN ADEQUACY SATISFACTORY FOR EVALUATION. ENDOCERVICAL/TRANSFORMATI ON ZONE COMPONENTS PRESENT. SCANT CELLULARITY. GENERAL CATEGORIZATION NEGATIVE FOR INTRAEPITHELIAL LESION OR MALIGNANCY. INTERPRETATION/RESULT SHIFT IN ALEISHA SUGGESTIVE OF BACTERIAL VAGINOSIS. ANCILLARY TESTING Negative for HPV DNA high risk type 16 by PCR. Please see additional report from [facility]. Negative for HPV DNA high risk type 18 by PCR. Please see additional report from [facility]. Negative for HPV DNA high risk types: 31, 33, 35, 39, 45, 51, 52, 56, 58, 59, 66, 68 by PCR. Please see additional report from [facility]. Electronically signed: 01/19/2020 Screened by: MECHELLE PRATT (ASCP) Signed Out by: MECHELLE PRATT (ASCP) The Pap test serves as a screening tool for early detection of cervical cancer. The Pap test does not represent a final diagnostic test for cervical cancer. Furthermore, the Pap test was not designed to screen for other malignancies (endometrial, ovarian cancer, etc....). False negatives and false positives have occurred. If clinically indicated, further patient evaluation is recommended. Printed on: January 19, 2020 Page 1 of [address] [facility] Comment on above: Performed By: #### C YTOP #### [place] [address] Rapid Trichomonas Agon 01-09 Rapid Trichomonas Ag see below Normal [facility] Comment on above: Result Comment: Posi tive for the presence of Trichomonas antigen. Performed By: #### L RAPT #### [place] [address] Sed Rateon 01-10-2020 Sed Rate 9 mm/hr Normal 0-[address] [facility] Comment on above: Performed By: #### L ESR #### [place] [address] TSHon 01-10-2020 TSH Qn 0.34 uIU/mL Normal 0.34-4.[address] [facility] Comment on above: Performed By: #### L TSH #### [place] [address] HCG,URINEon 05-18-2019 Beta HCG ( test) Ql (U) Negative Normal Negative [facility] Comment on above: Performed By: #### H CGU #### [facility] [address] [place] [address] History and Physical - Surgi crisitano Update < 30 dayson 05-18-2019 History and Physical - Surgical Update < 30 days History & Physical Reviewed: /Lactating: Are You no (1) Are You Currently Breastfeedingno (1) I have reviewed the History and Physical dated: 12-May-2019 History and Physical reviewed and relevant findings noted. Patient examined to review pertinent physical findings.: No significant changes Home Medications Reviewed: no changes noted Allergies Reviewed: no changes noted This patient has been seen and discussed with the attending physician responsible for performing the procedure: yes Signatures/Attestation/Ce rtification: Note Completion: RALF StatementI am solely responsible for all documentation captured within this clinical document, including critical care time, if applicable. The attending physician signature below is only for admission certification purposes. ADM Certification: Attending Provider Inpatient Certification StatementObservation patient/other outpatient visits Electronic Signatures: Spencer Yepez) (Signed 18-May-2019 09:24) Authored: History & Physical Reviewed, Signatures/Attestation/Ce rtification Last Updated: 18-May-2019 09:24 by Spencer Yepez) References: 1. Data Referenced From Patient Profile - Preop v2 05/18/2019 08:49 AM Normal [facility] [place] - Preop v2on 05-18-2019 Patient Profile - Preop v2 Profile: Initial Info: How to be AddressedPamella(1) Spoken Language PreferredEnglish (1) Source of Informationpatient Are you currently using the Personal Electronic Health Record or [employer]no Are you interested in learning more about [employer] for the management of your healthnot at this time Stated Reason for AdmissionLEFT L4-L5 BACK SURGERY Primary Contact Name and NumberCHERYL (MOTHER) [phone] Limitations on Visitors/Phone Callsnone Patient Belongingsremains with patient Medications Brought to Hospitalno General Health: Weight in kg58.9 kilogram(s) Weight in pax674 pound(s) Weight Methodstated Height in cm167.6 centimeter(s) Height in feet5 feet Height in inches6 inch(es) Height Methodstated BMI (kg/m2)20.968 square meter Patient or Family Member Reaction to Anesthesiano previous reaction Blood Avoidance/Restrictionsnon e Previous Transfusion ReactionNEVER RECEIVED BLOOD Health Mgmt: Symptoms/Conditions Managed at [facility] Are You Currently Breastfeedingno Barriers to Managing Healthnone Are You no Relationship/Environ: Resource/Environmental Concernsnone Services Anticipated at Transitionnone Lives Withdependent child(justus) Living Arrangementsmobile home Anticipated Transition T[place] Substance: Current or Former Substance Use never: e-Cigarette/Vaping(1), Street Drugs YES: Cigarette/Tobacco(1), Alcohol(1) Tobacco Cessation Education (provide if tobacco use within the last 12 mos) patient declined Alcohol Use Statuscurrent alcohol Alcohol Amount1-2 drinks Alcohol Frequencymonthly or less Risk Screens: Advance Directive/DNRno Advance Directive Information Givenpatient/family declined Advance Directive Mental Healthnot applicable During the past month, have you often been bothered by feeling down, depressed or hopelessno During the past month, have you often had little interest or pleasure in doing thingsno Have you had any thoughts of harming yourselfno Have you had any thoughts of harming anyone elseno Are you or have you been threatened or abused physically,emotionally or sexually abused by anyoneno Do you feel UNSAFE going back to the place you are livingno Patient is Able to be Assessed for Learningyes Factors Influencing Readiness to Learninterest in learning; motivation to learn Factors that Impact Ability to Learnnone Devices/Methods Used to Communicatenone Learning Preferencesverbal instruction Cultural Considerationsnone Developmental Considerationsnone Rastafarian Considerationsnone Other learner availableno Falls RiskPatient location auto qualifies him/her for HIGH RISK. Are there any cultural, spiritual, taoism practices/values/needs that are important for us to knowno Do you want a visit/item from [facility] Would you like your Loader Operator Supervisor/Extrusion Die Repair Manager notifiedno Pain Scalenumerical 0-10 Pain Scale Educationteaching provided Current Pain Level8 = Severe Acceptable Pain Level4 = Moderate Expression of Pain (nonverbal)none Barriers to Reporting Painnone Chronic Painno Information Review: Allergies, Home Meds and Significant Events have been Reviewed and Verified with Patient/Familyyes Allergy, Intolerance, Adverse Event: Allergies: No Known Allergies: Active Significant Events: 18-May-2019 ECTOPIC WITH BOTH TUBES GONE: Past Surgical History, Active Electronic Signatures: Lisy Schroeder (MOISÉS) (Signed 18-May-2019 08:55) Authored: Profile, Additional Information Last Updated: 18-May-2019 08:55 by Lisy Schroeder (MOISÉS) References: 1. Data Referenced From Patient Profile - Preop v2 05/12/2019 11:06 AM Normal [facility]list[place] 05-18-2019 Preop Checklist Preop Checklist: Preop Checklist: Arrival [id number] Arrival Time08:29 Procedure TypeLUMBAR LAMINECTOMY LEFT L4-L5 NPO [id number] ID Band Onyes Allergy Bandno known allergies Consent Signedpending H&P Completeyes Anesthesia Assessment Completedpending EKG Performedyes Chest X-Ray Performednot ordered HCG Urine TestComplete Chlorhexadine Bath Givennot applicable Nasal Antiseptic Appliednot applicable Hair Washedyes Soap and water bath with hair shampoo the night before surgeryyes SCD's Appliedyes SKYLER Hose Appliednot ordered Denturessent with family FULL SENT WITH MAGALI Prostheticsnot applicable Hearing Aidsnot applicable Valuables Securednot applicable Cardiovascular Assessment: Apicalregular Radial Pulsespalpable Pedal Pulsespalpable Extremitieswarm Respiratory Assessment: Respirationsunlabored regular Air Exchangegood, equal Breath Soundsclear Neurological Assessment: Level of Consciousnessalert, oriented Mobilitymoves all extremities Able to Express Selfno Age Appropriateyes Emotional Statuscalm Preop Education: Surgical Site Infection Preventionyes Pain Scales and Managementyes Language / Communication: Language / CommunicationEnglish Electronic Signatures: Lisy Schroeder (MOISÉS) (Signed 18-May-2019 09:19) Authored: Preop Checklist Last Updated: 18-May-2019 09:19 by Lisy Schroeder (MOISÉS) Normal [facility] BASIC METABOLIC PANELon 07-1 Anion gap [Moles/Vol] 10 mmol/L Normal 10 - 20 [facility] Comment on above: Performed By: #### B MP #### [address] [address] Calcium [Mass/Vol] 9.6 mg/dL Normal 8.6 - 10.3 [facility] Comment on above: Performed By: #### B MP #### [address] [address] Chloride [Moles/Vol] 106 mmol/L Normal 98 - 107 [facility] Comment on above: Performed By: #### B MP #### [address] [address] Creatinine [Mass/Vol] 0.57 mg/dL Normal 0.50 - 1.05 [facility] Comment on above: Performed By: #### B MP #### [address] [address] GFR- AM. >60 Normal >60 [facility] Comment on above: Result Comment: CALC ULATIONS OF ESTIMATED GFR ARE PERFORMED USING THE MDRD STUDY EQUATION FOR THE IDMS-TRACEABLE CREATININE METHODS. CLIN CHEM 2007;53:766-72 Performed By: #### B MP #### [address] [address] GFR-NON AM. >60 Normal >60 [facility] Comment on above: Performed By: #### B MP #### [address] [address] Glucose [Mass/Vol] 90 mg/dL Normal 74 - 99 [facility] Comment on above: Performed By: #### B MP #### [address] [address] HCO3 (Bld) [Moles/Vol] 25 mmol/L Normal 21 - 32 [facility] Comment on above: Performed By: #### B MP #### [address] [address] Potassium [Moles/Vol] 3.9 mmol/L Normal 3.5 - 5.3 [facility] Comment on above: Performed By: #### B MP #### [address] [address] Sodium [Moles/Vol] 137 mmol/L Normal 136 - 145 [facility] Comment on above: Performed By: #### B MP #### [address] [address] Urea nitrogen [Mass/Vol] 8 mg/dL Normal 6 - 23 [facility] Comment on above: Performed By: #### B MP #### [address] [address] CBCon 05-12-2019 Erythrocyte distribution width (RBC) [Ratio] 13.0 % Normal 11.5 - 14.5 [facility] Comment on above: Performed By: #### C BC #### [address] [address] Hematocrit (Bld) [Volume fraction] 41.4 % Normal 36.0 - 46.0 [facility] Comment on above: Performed By: #### C BC #### [address] [place] [address] Hemoglobin (Bld) [Mass/Vol] 13.5 g/dL Normal 12.0 - 16.0 [facility] Comment on above: Performed By: #### C BC #### [address] [place] [address] MCHC (RBC) [Mass/Vol] 32.6 g/dL Normal 32.0 - 36.0 [facility] Comment on above: Performed By: #### C BC #### [address] [place] [address] MCV (RBC) [Entitic vol] 94 fL Normal 80 - 100 [facility] Comment on above: Performed By: #### C BC #### [address] [address] Nucleated RBC/100 WBC (Bld) [Ratio] 0.0 /100 WBC Normal 0.0 - 0.0 [facility] Comment on above: Performed By: #### C BC #### [address] [address] Platelets (Bld) [#/Vol] 217 10*3/uL Normal 150 - 450 [facility] Comment on above: Performed By: #### C BC #### [address] [place] [address] RBC (Bld) [#/Vol] 4.39 x10E12/L Normal 4.00 - 5.20 [facility] Comment on above: Performed By: #### C BC #### [address] [place] [address] WBC (Bld) [#/Vol] 7.1 10*3/uL Normal 4.4 - 11.3 [facility] Comment on above: Performed By: #### C BC #### [address] [place] [address] STAPH/MRSA SCREENon 05-12-20 19 STAPH/MRSA SCREEN PATIENT: TORRES LAZO LOCATION: [facility] BRAD#: [id number] : 84 AGE: SEX: F ORDERED BY: MEY YEPEZ SOURCE: ANTERIOR NARES COLLECTED: 05/12/19 11:18 ANTIBIOTICS AT [facility].: RECEIVED : 05/12/19 16:47 SITE: nares R E S U L T S STAPH/MRSA SCREEN FINAL 05/13/19 17:11 ISOLATE1 : Staphylococcus aureus METHICILLIN SENSITIVE STAPHYLOCOCCUS AUREUS (MSSA) Normal [facility] Comment on above: Performed By: #### S TAPH #### [facility] [address] [place] [address] Office Visit (Urgent Care)on 07-19-2018 Office Visit (Urgent Care) Chief Complaint Cough History of Present [id number]-[id number]-fgz female presents for evaluation of a sore throat chest hurts with coughing and runny nose. Patient states that over the last 2 weeks she's had the above symptoms. She states that her throat is now starting to hurt. Her cough is become painful and causes chest discomfort. This is only associated with coughing. She states her nose will just not stop running. She has heard herself wheezing. Denies fever.ROS: 7 body systems reviewed and otherwise negative unless dictated in the history of present illness. Review of SystemsConstitutional: as noted in HPI. Active Problems Chlamydia trachomatis infection (099.50) (A74.9) Chlamydial pneumonia (C. psittacosis) (073.0) (J16.0) Hepatitis C virus infection, unspecified chronicity (070.70) (B19.20) Heroin abuse (305.50) (F11.10) Heroin use disorder, mild, in early remission, abuse (305.50) (F11.11) Illicit drug use (305.90) (F19.90) Opioid abuse (305.50) (F11.10) Tobacco abuse (305.1) (Z72.0) Past Medical History History of depression (V11.8) (Z86.59) History of Patient denies medical problems (V49.89) (Z78.9) Surgical History History of Laparoscopic Excision Of Ectopic Preg AND Salpingectomy Bilat History of Oral Surgery Tooth Extraction all removed. will get dentures Denied: History of Reported Prior Surgical / Procedural History Family History Family history of Cancer, colon Family history of Cancer, colon Family history of Cocaine abuse Family history of Drug abuse Social History Denied: History of Alcohol use Completed elementary school Current every day smoker (305.1) (F17.200) High school or GED House Illicit drug use (305.90) (F19.90) Lives with parents Recreational drug use (305.90) (F19.90) Single Three children Unemployed (V62.0) (Z56.0) Allergies No Known Drug Allergies Recorded By: Lisa Nuno; 12/21/2015 12:10:49 PM Current Meds Famotidine 20 MG Oral Tablet; TAKE 2 TABLETS BY MOUTH ONCE DAILY FOR 10DAYS;Therapy: [id number] to Recorded Unidentified Source; [id number]; Trusted Loratadine 10 MG Oral Tablet; TAKE 1 TABLET BY MOUTH ONCE DAILY FOR 10 DAYS;Therapy: [id number] to Recorded Unidentified Source; [id number]; Trusted PredniSONE 10 MG Oral Tablet; TAKE 6 TABLETS BY MOUTH ONCE DAILY FOR 2DAYS, TAKE 5 TABLETS ONCE ALEXANDREA;Therapy: [id number] to Recorded Unidentified Source; [id number]; Trusted Vitals Vital Signs Recorded: 95Zcc1950 01:23JSYyxeqyzwkod10.6 FHeart Fdrq52Tmvpruioqpd60Bdpzjl gq211Mhpnpopmh62Zwwuqb3 ft 6 twTkvmfh112 lb BMI Jyqixxuvcw45.18BSA Calculated1.64O2 Lbipopcxai99Uuyc Scale6 Physical ExamConstitutional: vital signs reviewed. Well developed, well nourished. patient alert and patient without distress. Gen: Alert and oriented, not acutely ill or toxic appearingHEENT: Head is NC and AT. No facial asymmetry. Pupils are equal and reactive to light. Patent nares. Oral pharynx with PND. Neck: suppleHeart: regular rate and rhythm without murmurLungs: respirations are unlabored,. course breath sounds throughout with occasional end expiratory wheeze.Skin: warm and dryNeuro: ambulatory without assist. Mentation clear. Answering questions quickly and appropriately. Diagnoses/Problems Sinobronchitis (473.9,490) (J32.9,J40) Acute bronchospasm (519.11) (J98.01) OrdersAcute bronchospasm Start: Proventil HFA 108 (90 Base) MCG/ACT Inhalation Aerosol Solution; INHALE 1 TO 2PUFFS EVERY 4 TO 6 HOURS NEEDED Rx By: Jaylene Ramos; Dispense: 0 Days ; #:1 X 6.7 GM Inhaler; Refill: 0;For: Acute bronchospasm; RANDY = N; Verified Transmission to [id number]; Last Updated By: Frenzoo; 07/18/2018 1:57:41 PMSinobronchitis Start: Doxycycline Hyclate 100 MG Oral Capsule; TAKE 1 CAPSULE EVERY 12 HOURSUNTIL GONE Rx By: Jaylene Ramos; Dispense: 10 Days ; #:20 Capsule; Refill: 0;For: Sinobronchitis; RANDY = N; Verified Transmission to [facility]; Last Updated By: Frenzoo; 07/18/2018 1:57:39 PM Provider Mycakdljebz25-qsru-bji female presents with an exam consistent with acute sinobronchitis. Patient will be treated with oral antibiotics as well as an inhaler. No evidence of pneumonia on today's evaluation. If not improving over the next few days repeat evaluation recommended Patient Discussion/SummaryToday you were seen by Dr Ramos Please see your primary care physician in 3-5 days. Increase fluids and rest. Begin and complete entire course of antibiotics. I recommend you eat a serving of yogurt daily (with live and active cultures) and take a daily probiotic (please ask your pharmacist for specific recommendations).You may try over the counter medications to alleviate your symptoms.--Expectorant (i.e. Mucinex)- to thin nasal secretions--Decongestant (i.e. Sudafed)- to dry secretions--Pain Control (i.e. acetaminophen or ibuprofen)- decrease discomfort--Nasal saline spray (i.e. Dyer Nasal [place])- to keep nasal passage moistIf you feel your symptoms are worsening despite treatment, please be re-evaluated (urgent care, family physician or emergency department).Increase fluids and restBegin the use of inhaler as instructed.If you're breathing worsens in any way or you develop a fever, repeat evaluation is needed End of Encounter MedsDoxycycline Hyclate 100 MG Oral Capsule; TAKE 1 CAPSULE EVERY 12 HOURS UNTILGONE;Therapy: [id number] to (Complete:[id number]) Requested for: [id number]; LastRx:[id number] OrderedProventil HFA 108 (90 Base) MCG/ACT Inhalation Aerosol Solution; INHALE 1 TO 2PUFFS EVERY 4 TO 6 HOURS NEEDED;Therapy: [id number] to (Last Rx:[id number]) Requested for: [id number] OrderedFamotidine 20 MG Oral Tablet; TAKE 2 TABLETS BY MOUTH ONCE DAILY FOR 10DAYS;Therapy: [id number] to RecordedLoratadine 10 MG Oral Tablet; TAKE 1 TABLET BY MOUTH ONCE DAILY FOR 10 DAYS;Therapy: [id number] to RecordedPredniSONE 10 MG Oral Tablet; TAKE 6 TABLETS BY MOUTH ONCE DAILY FOR 2DAYS, TAKE 5 TABLETS ONCE ALEXANDREA;Therapy: [id number] to Recorded Signatures Electronically signed by : Jaylene Ramos DO; Jul 19 2018 2:23PM EST (Author) [facility] ED NOTEon 05-06-2017 ED NOTE HNO ID: [id number] Author: Daquan JonesRnDarnell Sims RN Service: Nursing Author Type: Registered Nurse Type: ED Notes Filed: 05/06/2017 3:35 PM Note Text: Pt was ambulatory with her discharge and will follow up with her family medical dr as per needed [facility] ED NOTE HNO ID: [id number] Author: Lona JonesRn) DARBY Marquez Service: (none) Author Type: Registered Nurse Type: ED Notes Filed: 05/06/2017 2:41 PM Note Text: Bed: [facility] Expected date: Expected time: Means of arrival: Comments: Room 23 [facility] ED NOTE HNO ID: [id number] thor: Lona (Rn) JON Marquezervice: (none)Author Type: Registered NurseType: ED NotesFiled: 05/06/2017 2:52 PMNote Text:Patient presents to ED with c/o low back pain. States she was lifting upher son and she possibly twisted wrong and hurt her back. Has hx of backissues but has not had pain in a long time. Has been taking OTCmedications for pain relief but states they are not helping. Has alsotried ice AND heat without improvement. States she is having difficultystanding up and straight and walking is painful. [facility] ED PROV NOTEon 05-06-2017 ED PROV NOTE HNO ID: [id number] thor: Lokesh Blue) Alejandro Otero: (none)Author Type: Physician AssistantType: ED Provider NotesFiled: 05/06/2017 3:33 PMNote Text:ED Provider NotePatient Name: Amanda DavisRN: [id number] DATE: 05/06/17HistoryPatient presents with:Back PainHPIPadell Lazo is a 36-year-old female with a history of drug abuse andchronic back pain presenting with back pain. Patient states that 3 daysago she was trying to ultrasound and fell backwards on her back. She hashad constant lower back pain for 3 days. It doesn't radiate. Worse withmovement. Better with rest. Moderate in severity. She has not hadrelief with Motrin. She denies any associated weakness or paresthesias,or prodromal symptoms or loss of consciousness prior to her fall, it was amechanical fall, head trauma or loss of consciousness, nausea or vomiting,or IV drug abuse, saddle anesthesias or paresthesias, or difficulty withambulation.PAST MEDICAL HISTORYDiagnosis Date- Anxiety- Chronic back pain - Back and neck- Depressive disorder- Drug abuse in remission- Generalized anxiety disorder- Known medical problems Heavy cigarette smoker (20-39 cigs/day)- Neck pain- Substance abuse- Viral hepatitis CPAST SURGICAL HISTORYNo date: NONEFAMILY HISTORY Colorectal cancer [Other] [OTHER] Father Depressive disorder [Other] [OTHER] SisterSocial History Marital status: Single Spouse name: Years of education: Number of children:Social History Main Topics Smoking status: Current Every Day Smoker Packs/day: 1.00 Years: 0.00 Types: Cigarettes Smokeless status: Never Used Alcohol use: No Drug use: Yes Comment: Past; Type: cocaine, and opiatesOther Topics ConcernCaffeine Concern No Comment: Uses caffeine; Type: coffee, and soda; Amount: heavy (equiv to 4-9 8oz coffee/day)Social History Narrative NO FLU SHOT 10/2011ALLERGIESNo Known AllergiesReview of SystemsConstitutional: Negative for chills and fever.HENT: Negative for congestion and sore throat.Eyes: Negative for photophobia and visual disturbance.Respiratory: Negative for cough and shortness of breath.Cardiovascular: Negative for chest pain and leg swelling.Gastrointestinal : Negative for abdominal pain, blood in stool, diarrhea,nausea and vomiting.Genitourinary: Negative for dysuria and hematuria.Musculoskeletal : Positive for back pain. Negative for arthralgias, jointswelling and neck pain.Skin: Negative for color change and rash.Neurological: Negative for dizziness, syncope, weakness, light-headedness,numbness and headaches.All other systems reviewed and are negative.Physical ExamBP 116/71 Pulse 81 Temp (Src) 98.6 (Oral) Resp 20 Wt 130 lb(59.0kg) SpO2 98% LMP 04/16/2017Physical ExamConstitutional: She is oriented to person, place, and time. She appearswell-developed and well-nourished.HENT:Head: Normocephalic and atraumatic.Eyes: Conjunctivae and EOM are normal. Pupils are equal, round, andreactive to light.Neck: Normal range of motion. Neck supple.Cardiovascular: Normal rate, regular rhythm, normal heart sounds andintact distal pulses.Pulmonary/Chest: Effort normal and breath sounds normal. No respiratorydistress. She has no wheezes. She exhibits no tenderness.Abdominal: Soft. Bowel sounds are normal. She exhibits no distension.There is no tenderness. There is no rebound and no guarding.Musculoskeletal: Normal range of motion. She exhibits no edema ordeformity. Lumbar back: She exhibits tenderness, bony tenderness and pain. Sheexhibits normal range of motion, no swelling, no edema, no deformity, nolaceration, no spasm and normal pulse. Back:Right lumbar paraspinal and lumbar spinal pain on palpation. 5 out of 5strength testing of the lower extremities. Normal patellar and Achillesreflexes bilaterally. Negative straight leg raise bilaterally. Normal DPand PT pulses bilaterally that are symmetrical. Able to stand on heelsand toes and ambulate without difficulty. Normal sensation of the lowerextremities bilaterally.Neurological: She is alert and oriented to person, place, and time. Shehas normal strength and normal reflexes. No sensory deficit. Gait normal.Skin: Skin is warm, dry and intact. No abrasion, no bruising, no burn, noecchymosis, no laceration, no lesion, no petechiae and no rash noted. Noerythema.Nursing note and vitals reviewed.Diagnostic TestingED Labs Ordered and Reviewed - No data to displayXR LUMBAR SPINE 2-3V Final Result IMPRESSION: No acute fracture identified radiographically involving the lumbarspine. Abrasive Coating Machine Operator: PHIL Transcribe Date/Time: May 06 2017 3:11P Dictated by : MERRITT KEITH MD This examination was interpreted and the report reviewed and electronically signed by: MERRITT KEITH MD on May 06 2017 3:12PM ESTProceduresMedical Decision Making / ED CourseED Course patient declined analgesia while in the emergency department.Lumbar spine x-ray shows no acute abnormality.Patient advised to rest and ice. She was prescribed Naprosyn andFlexeril. She'll follow-up with her primary care physician. Returnprecautions given. Patient agreeable with this plan and discharged home.Encounter Diagnosis ICD-10-CM1. Lumbosacral strain, initial encounter S39.012APlanThe Patient was DISCHARGED: Counseled patient regarding radiology resultsAND suspected diagnosis AND need for follow-up. Discharged home with verbaland written instructions. They were instructed to return as needed forpersistent or worsening symptoms or any new concerns.Condition at time of disposition: stableSIGNATURE: Yane Cabral (FANTASMA Carter05/06/17 1533 [facility] XR LUMBAR AP/LATon 7 XR LUMBAR AP/LAT * * *Final Report* * *DATE OF EXAM: May 06 2017 3:02PM MDX 6977 - XR LUMBAR AP/LAT / REASON: Trauma * * * * Physician Interpretation * * * * EXAM: Standing AP and lateral views of the lumbar spineHISTORY: Trauma.COMPARISON: None availableFINDINGS:Evaluat ion is mildly limited by positioning.There are 5 nonrib-bearing lumbar type vertebrae. There is levocurvature of the thoracolumbar spine.No acute fracture is identified radiographically. Vertebral body heights are maintained.IMPRESSION:No acute fracture identified radiographically involving the lumbar spine.Abrasive Coating Machine Operator: PHIL Transcribe Date/Time: May 06 2017 3:11PDictated by : MERRITT KEITH MDThis examination was interpreted and the report reviewed and electronically signed by: MERRITT KEITH MD on May 06 2017 3:12PM [facility] Vital Signs Date Time Vital Sign Value Performing Clinician Robb melton 03-03-2024 09:05-0400 Body height 167.6 cm Evette Sheets DO Work Phone: [facility] 03-03-2024 09:05-0400 Body mass index (BMI) [Ratio] 22.11 kg/m2 Evette Sheets DO Work Phone: [facility] 03-03-2024 09:05-0400 Body temperature 98.4 [degF] Evette Sheets DO Work Phone: [facility] 03-03-2024 09:05-0400 Body weight 62.14 kg Evette Sheets DO Work Phone: [facility] 03-03-2024 09:05-0400 Diastolic blood pressure 60 mm[Hg] Evette Sheets DO Work Phone: [facility] 03-03-2024 09:05-0400 Heart rate 76 /min Evette Sheets DO Work Phone: [facility] 03-03-2024 09:05-0400 Respiratory rate 16 /min Evette Sheets DO Work Phone: [facility] 03-03-2024 09:05-0400 SaO2% (BldA) [Mass fraction] 97 % Evette Sheets DO Work Phone: [facility] 03-03-2024 09:05-0400 Systolic blood pressure 108 mm[Hg] Evette Sheets DO Work Phone: [facility] 02-05-2023 15:54-0400 Body height 167.6 cm Jens Trinishant CATERING TRUCK OPERATOR.UTILIZATION MANAGEMENT RN Work Phone: [facility] 02-05-2023 15:54-0400 Body temperature 98.4 [degF] Jens Trill CATERING TRUCK OPERATOR.UTILIZATION MANAGEMENT RN Work Phone: [facility] 02-05-2023 15:54-0400 Body weight 55.34 kg Jens Trill CATERING TRUCK OPERATOR.UTILIZATION MANAGEMENT RN Work Phone: [facility] 02-05-2023 15:54-0400 Diastolic blood pressure 60 mm[Hg] Jens Beaver APRN.UTILIZATION MANAGEMENT RN Work Phone: [facility] 02-05-2023 15:54-0400 Heart rate 76 /min Jens Beaver APRN.UTILIZATION MANAGEMENT RN Work Phone: [facility] 02-05-2023 15:54-0400 SaO2% (BldA) [Mass fraction] 98 % Jens Beaver APRN.UTILIZATION MANAGEMENT RN Work Phone: [facility] 02-05-2023 15:54-0400 Systolic blood pressure 100 mm[Hg] Jens Beaver APRN.UTILIZATION MANAGEMENT RN Work Phone: [facility] Encounters Encounter Date Encounter Type Care Provider Facility Start: 08-25-2024 End: 08-25-2024 Telephone encounter Jens Beaver APRN.CNP Work Phone: [facility] Comment on above: Electronic Communica tion (FMLA ) Start: 08-24-2024 End: 08-24-2024 Telephone encounter Jens Linda Audrey MAURO Work Phone: [facility] Comment on above: Patient Question Start: 08-13-2024 End: 08-16-2024 ambulatory Jens Beaver APRN.CNP Work Phone: [facility] Comment on above: EKG results Start: 08-11-2024 End: 08-11-2024 ambulatory JENS BEAVER Facility:[facility] Start: 08-09-2024 End: 08-09-2024 Preprocedural examination done Jens Beaver APRN.CNP Work Phone: [facility] Work Phone: Start: 08-09-2024 End: 08-09-2024 Telemedicine consultation with patient Jensronda Leijanishant MAURO Work Phone: [facility] Start: 08-09-2024 End: 08-09-2024 ambulatory Jens Beaver APRN.UTILIZATION MANAGEMENT RN Work Phone: [facility] Comment on above: Preop examination (P rimary Dx); Chronic neck pain Start: 08-05-2024 End: 08-05-2024 ambulatory JENS BEAVER Facility:[facility] Start: 08-05-2024 Encounter for other preprocedural examination JENS BEAVER [facility] Start: 08-04-2024 End: 08-04-2024 Preprocedural examination done Jnes Beaver APRN.UTILIZATION MANAGEMENT RN Work Phone: [facility] Work Phone: Start: 08-04-2024 End: 08-04-2024 Telephone encounter Jens Beaver APRN.UTILIZATION MANAGEMENT RN Work Phone: [facility] Comment on above: Forms (Medical Clear ance for Surgery) Start: 08-03-2024 End: 08-03-2024 Telephone encounter Jens Beaver APRN.UTILIZATION MANAGEMENT RN Work Phone: [facility] Comment on above: clearance form (Form put in red folder) Start: 06-12-2024 Refill Jens C Tril l CATERING TRUCK OPERATOR.UTILIZATION MANAGEMENT RN Work Phone: [facility] Comment on above: Refill Request Start: 05-04-2024 Refill Jens C Tril l CATERING TRUCK OPERATOR.UTILIZATION MANAGEMENT RN Work Phone: [facility] Comment on above: Med Change Request Start: 04-13-2024 ambulatory Jens C Tril l CATERING TRUCK OPERATOR.UTILIZATION MANAGEMENT RN Work Phone: [facility] Comment on above: Quitting smoking Start: 04-10-2024 Refill Jens C Tril l CATERING TRUCK OPERATOR.UTILIZATION MANAGEMENT RN Work Phone: [facility] Comment on above: Refill Request Start: 03-24-2024 Refill Jens C Tril l CATERING TRUCK OPERATOR.UTILIZATION MANAGEMENT RN Work Phone: [facility] Comment on above: Refill Request Start: 03-05-2024 Telephone encounter Jens C Trill CATERING TRUCK OPERATOR.UTILIZATION MANAGEMENT RN Work Phone: [facility] Comment on above: Patient Question (Wa nts letter for work ) FMLA Paperwork (FMLA ) Start: 03-04-2024 ambulatory Evette Singh ets DO Work Phone: [facility] Start: 03-04-2024 Follow-up encounter Evette Benitez DO Work Phone: [facility] Comment on above: Follow up Start: 03-03-2024 End: 03-03-2024 Patient encounter procedure Evette Mckeon Sheets DO Work Phone: [facility] Comment on above: Bacterial sinusitis (Primary Dx) Start: 03-03-2024 End: 03-03-2024 ambulatory EVETTE C SHEETS Facility:[facility] Start: 03-02-2024 ambulatory Jens C Tril l CATERING TRUCK OPERATOR.UTILIZATION MANAGEMENT RN Work Phone: [facility] Comment on above: Medication question. Start: 02-18-2024 Refill Jens C Tril l CATERING TRUCK OPERATOR.UTILIZATION MANAGEMENT RN Work Phone: [facility] Comment on above: Refill Request Start: 12-23-2023 Refill Jens C Tril l CATERING TRUCK OPERATOR.UTILIZATION MANAGEMENT RN Work Phone: [facility] Comment on above: Refill Request Start: 12-05-2023 Refill Jens C Tril l CATERING TRUCK OPERATOR.UTILIZATION MANAGEMENT RN Work Phone: [facility] Comment on above: Refill Request Start: 10-04-2023 Refill Jens C Tril l CATERING TRUCK OPERATOR.UTILIZATION MANAGEMENT RN Work Phone: [facility] Comment on above: Refill Request Start: 08-29-2023 Refill Jens C Tril l CATERING TRUCK OPERATOR.UTILIZATION MANAGEMENT RN Work Phone: [facility] Comment on above: Refill Request Start: 08-15-2023 Telephone encounter Jens C Trill CATERING TRUCK OPERATOR.UTILIZATION MANAGEMENT RN Work Phone: [facility] Comment on above: Orders Start: 08-09-2023 Refill Jens C Tril l CATERING TRUCK OPERATOR.UTILIZATION MANAGEMENT RN Work Phone: [facility] Comment on above: Refill Request Start: 08-04-2023 Refill Jens C Tril l CATERING TRUCK OPERATOR.UTILIZATION MANAGEMENT RN Work Phone: [facility] Comment on above: Refill Request Start: 05-21-2023 Refill Jens C Tril l CATERING TRUCK OPERATOR.UTILIZATION MANAGEMENT RN Work Phone: [facility] Comment on above: Refill Request Start: 03-11-2023 Refill Jens C Tril l CATERING TRUCK OPERATOR.UTILIZATION MANAGEMENT RN Work Phone: [facility] Comment on above: Refill Request Start: 02-28-2023 Refill Jens C Tril l CATERING TRUCK OPERATOR.UTILIZATION MANAGEMENT RN Work Phone: [facility] Comment on above: Refill Request Start: 02-12-2023 ambulatory Jens C Tril l CATERING TRUCK OPERATOR.UTILIZATION MANAGEMENT RN Work Phone: [facility] Comment on above: Results Start: 02-05-2023 End: 02-05-2023 Patient encounter procedure Jens Leijall CATERING TRUCK OPERATOR.UTILIZATION MANAGEMENT RN Work Phone: [facility] Comment on above: Well adult exam (Bhavna daquan Dx); Encounter for screening mammogram for breast cancer; Depression screening; Screening for HIV (human immunodeficiency virus); Screening cholesterol level; Screening for diabetes mellitus; Vapes nicotine containing substance Start: 02-05-2023 End: 02-05-2023 Patient encounter status Jens Leijall CATERING TRUCK OPERATOR.UTILIZATION MANAGEMENT RN Work Phone: [facility] Start: 01-09-2023 End: 01-09-2023 [facility] Start: 09-30-2022 Get Medical Advice Jens Leijall CATERING TRUCK OPERATOR.UTILIZATION MANAGEMENT RN Work Phone: [facility] Comment on above: Refill Start: 08-24-2022 Refill Jens C Tril l CATERING TRUCK OPERATOR.UTILIZATION MANAGEMENT RN Work Phone: [facility] Comment on above: Refill Request Start: 08-01-2022 ambulatory Jens jones CATERING TRUCK OPERATOR.NAMAN Work Phone: [facility] Start: 08-01-2022 Letter encounter Jens dillard APRN.NAMAN Work Phone: [facility] Comment on above: Clearance Letter Start: 04-26-2022 ambulatory Jens jones CATERING TRUCK OPERATOR.UTILIZATION MANAGEMENT RN Work Phone: [facility] Comment on above: Stop smoking Start: 02-23-2022 Refill Jens jones APRN.NAMAN Work Phone: [facility] Comment on above: Refill Request Start: 05-06-2017 End: 05-06-2017 Emergency department patient visit [facility] Procedures Date Procedure Procedure Detail Performing Clinician Start: 08-21-2021 Adult depression screening assessment Jens Beaver APRN.CNP Work Phone: Start: 06-25-2020 Throat culture Comment on above: Performed By: #### L TSH #### [place] [id number] Start: 09-14-2015 H/O: surgery History of lynne gical procedure Jens Beaver APRN.CNP Work Phone: Plan of Treatment Date Care Activity Detail Author Start: 01-09-2025 HPV TESTING HPV TESTING [facility] Start: 01-09-2025 PAP TESTING PAP TESTING [facility] Start: 01-09-2025 Screening for malign ant neoplasm of cervix [facility] Start: 08-05-2024 End: 08-05-2024 ambulatory 08/05/2024 3:15 PM EDT Results Only [facility] [address] [place] [id number] [facility] Start: 08-04-2024 End: 03-02-2025 Basic metabolic 2000 panel - Serum or Plasma BASIC METABOLIC PANEL Lab Routine Preop examination Expected: 08/04/2024, Expires: 03/02/2025 [facility] Work Phone: Comment on above: Expected: 08/04/2024 , Expires: 03/02/2025 Start: 08-04-2024 End: 03-02-2025 CBC panel - Blood by Automated count COMPLETE BLOOD COUNT Lab Routine Preop examination Expected: 08/04/2024, Expires: 03/02/2025 [facility] Comment on above: Expected: 08/04/2024 , Expires: 03/02/2025 Start: 07-04-2024 Covid-19 Vaccine () Covid-19 Vaccine () [facility] Start: 07-04-2024 Influenza vaccination C [facility] Start: 03-03-2024 End: 03-03-2024 Patient encounter procedure 03/03/2024 9:00 AM EDT Office Visit [facility] [address] [place] [address] Evette Benitez, DO [address] [place] [address] Pneumonia last , Almost done with meds, not feeling any better, needs work note. [facility] Comment on above: Pneumonia last , Almost done with meds, not feeling any better, needs work note. Start: 02-06-2024 COVID-19 VACCINE (#1) COVID-19 VACCI NE (#1) [facility] Comment on above: Postponed from 06/17 (Declined at this time) Start: 11-03-2023 Behavioral Health Screening Behavioral Health Screening [facility] Start: 11-03-2023 Depression Assessment Depression Ass essment [facility] Start: 08-15-2023 End: 10-15-2023 Lipid 1996 panel - Serum or Plasma LIPID PANEL BASIC Lab Routine Hyperlipidemia, mixed Expected: 08/15/2023, Expires: 10/15/2023 [facility] Work Phone: Comment on above: Expected: 08/15/2023 , Expires: 10/15/2023 Start: 08-07-2023 PNEUMOCOCCAL (1 - PCV) PNEUMOCOCCAL (1 - PCV) [facility] Comment on above: Postponed from 12/18 (Declined at this time) Start: 08-07-2023 Pneumococcal vaccination Pneumococcal Vaccine (1 - PCV) [facility] Comment on above: Postponed from 12/18 (Declined at this time) Start: 08-07-2023 Urine microalbumin profile [facility] Comment on above: Postponed from 12/18 (Declined at this time) Start: 07-04-2023 Covid-19 Vaccine () Covid-19 Vaccine () [facility] Start: 07-04-2023 Influenza vaccination C [facility] Start: 05-02-2023 Influenza vaccination INFLUENZA (#1) [facility] Comment on above: Postponed from 07/04 (Declined at this time) Start: 02-05-2023 End: 09-03-2023 Comprehensive metabolic 2000 panel - Serum or Plasma COMP METABOLIC PANEL Lab Routine Screening for diabetes mellitus Expected: 02/05/2023, Expires: 09/03/2023 [facility] Work Phone: Comment on above: Expected: 02/05/2023 , Expires: 09/03/2023 Start: 02-05-2023 End: 04-07-2023 HIV 1+2 Ab [Presence] in Serum or Plasma by Immunoassay HIV 1 2 COMBO(AG/AB),WITH REFLEX TO DIFFERENTIATION Lab Routine Screening for HIV (human immunodeficiency virus) Expected: 02/05/2023, Expires: 04/07/2023 [facility] Work Phone: Comment on above: Expected: 02/05/2023 , Expires: 04/07/2023 Start: 02-05-2023 End: 09-03-2023 Lipid 1996 panel - Serum or Plasma LIPID PANEL BASIC Lab Routine Screening cholesterol level Expected: 02/05/2023, Expires: 09/03/2023 [facility] Work Phone: Comment on above: Expected: 02/05/2023 , Expires: 09/03/2023 Start: 2022 Mammography [facility] Start: 2022 Screening for malign ant neoplasm of breast Mammogram Screening [facility] Start: 11-02-2022 DEPRESSION ASSESSMENT DEPRESSION ASS ESSMENT [facility] Comment on above: Postponed from 11/03 (Declined at this time) Start: 10-03-2022 COVID-19 VACCINE (#1) COVID-19 VACCI NE (#1) [facility] Comment on above: Postponed from 12/18 (Declined at this time) Postponed from 06/17 (Declined at this time) Start: 10-03-2022 COVID-19 VACCINE (1) COVID-19 VACCIN E (1) [facility] Comment on above: Postponed from 12/18 (Declined at this time) Start: 08-21-2022 Adult depression screening assessment DEPRESSION SCREENING [facility] Start: 07-04-2022 Influenza vaccination [facility] Start: 11-03-2021 [address] [facility] Start: 2001 Hepatitis B Vaccine (1 of 3 - 19+ 3-dose series) Hepatitis B Vaccine (1 of 3 - 19+ 3-dose series) [facility] Start: 2001 Urine microalbumin profile [facility] Start: 2000 Anxiety Screening Anxiety Screening [facility] Start: 2000 Depression Screening Depression Scre ening [facility] Start: 2000 HIV SCREENING HIV SCREENING [facility] Start: 2000 HIV screening HIV Screening [facility] Start: 1988 PNEUMOCOCCAL (1 - PCV) PNEUMOCOCCAL (1 - PCV) [facility] Start: 1988 Pneumococcal vaccination [facility] Start: 1982 HEPATITIS B (1 of 3 - 3-dose series) HEPATITIS B (1 of 3 - 3-dose series) [facility] Start: 1982 Hepatitis B Vaccine (1 of 3 - 3-dose series) Hepatitis B Vaccine (1 of 3 - 3-dose series) [facility] ECG COMPLETE ECG COMPLETE ECG Routine Preop examination 08/11/2024 4:04 PM EDT [facility] Work Phone: End: 03-06-2024 HANK SCREENING HANK SCREENING Radiology Routine Encounter for screening mammogram for breast cancer 1 Occurrences starting 02/05/2023 until 03/06/2024 [facility] Work Phone: Comment on above: 1 Occurrences starti ng 02/05/2023 until 03/06/2024 [facility] Payers Date Payer Category Payer Medicaid [id number] 2022 Unknown [id number] 2021 Unknown MMO MMO [employer] [id number] 2021-Present [phone] [address] [place] [address] PPO [id number] 2021 Unknown [id number] 2018 Medicaid [employer] [id number] 2018-Present [phone] [address] [place] [address] Medicaid [id number] 2018 Medicaid [id number] 1982 Unknown [id number] Social History Date Type Detail Facility Start: 08-21-2021 End: 01-27-2020 Tobacco smoking status WYIS Smokes tobacco daily [facility] End: 01-27-2020 History of tobacco use Cigarette Smoker [facility] Start: 08-21-2021 End: 03-03-2024 Cigarettes smoked current (pack per day) - Reported 1 [facility] Work Phone: Start: 08-21-2021 Tobacco use and exposure Former smokeless tobacco user [facility] History of tobacco use Chews Tobacco [facility] Start: 10-03-2021 End: 08-09-2024 Alcohol intake Current drinker of alcohol (finding) [facility] Start: 01-10-2020 History SDOH Alcohol Comment social [facility] Start: 08-21-2021 End: 03-03-2024 Tobacco Comment nancye nettasmooth [facility] Start: 1980 Sex Assigned At Not on file C [facility] Start: 07-28-2022 End: 08-07-2022 Exposure to SARS-CoV-2 (event) Not sure [facility] Start: 02-05-2023 End: 03-03-2024 Tobacco use panel [facility] Work Phone: Adult Depression Screening Assessment 0 [facility] Work Phone: Start: 03-03-2024 Tobacco smoking stat us [facility] Ex-smoker [facility] End: 01-27-2020 History of tobacco use Current smoker [facility] Start: 03-03-2024 Tobacco use and exposure User of smokeless tobacco [facility] Clinical Notes 09-14-2015 to 08-25-2024 Telephone Encounter - Daquan Bacon MA - 08/25/2024 8:56 AM EDTTelephone Encounter - Daquan Bacon MA - 08/25/2024 8:56 AM EDTTelephone Encounter - Kelly Maldonado LPN - 08/24/2024 3:16 PM EDT Note Date & Type Note Facility 08-25-2024 Telephone encounter Note Received fax from [employer] requesting fmla form to be filled out. Placed in red folder. Daquan Bacon MA [facility] 08-25-2024 Miscellaneous Notes Received fax from [employer] requesting fmla form to be filled out. Placed in red folder. Daquan Bacon MA documented in this encounter [facility] 08-24-2024 Telephone encounter Note Pt left message stating that she spoke with Ronny today. Per pt she is scheduled for neck surgery (disc replacement) on 08/31/2024. Per pt Ronny will be faxing form over and it needs to have off work starting 08/23/2024. Kelly Maldonado LPN [facility] 08-24-2024 Miscellaneous Notes Pt left message stating that she spoke with Ronny today. Per pt she is scheduled for neck surgery (disc replacement) on 08/31/2024. Per pt Ronny will be faxing form over and it needs to have off work starting 08/23/2024. Kelly Maldonado LPN documented in this encounter [facility] 08-09-2024 Note HNO ID: [id number] Author: JENS BEAVER APRN.UTILIZATION MANAGEMENT RN Service: ? Author Type: Nurse Practitioner Type: Progress Notes Filed: 08/12/2024 00:07 Note Text: VIRTUAL VISIT PROGRESS NOTE This is a virtual visit using [employer] Video Visit. It required patient-provider interaction for the medical decision making as documented below. I have communicated my name and active licensure. The patient's identity and physical location were verified at the time of this visit. Either the patient or their legal business office representative has been informed of the risks and benefits of -- and alternatives to -- treatment through a remote evaluation and consents to proceed with the evaluation remotely. Aide Lazo is a 43 year old female seen for preop exam. 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 She is using tobacco pouches here and there, plans on stopping No more smoking Doesn't vape anymore Functional Status of patient: Able to perform activities of daily living: Yes Able to walk up a flight of stairs: Yes - would be a just a tiny bit SOB Able to do heavy house work: Yes Associated Conditions: Does the patient have diabetes: no Does the patient have lung problems: no Does the patient have heart disease: no Cardiac Function Status Can take care of self, such as eat, dress, or use the toilet (1 MET) = Yes Can walk up a flight of steps or a hill or walk on level ground at 3 to 4 mph (4 METs) = Yes Can do heavy work around the house such as scrubbing floors or lifting or moving heavy furniture or climb two flights of stairs (between 4 and 10 METs) = Yes Can participate in strenuous sports such as swimming, singles tennis, football, basketball, and skiing (>10 METs) = Does not Revised Bradley Cardiac Risk Index 1. High risk surgery - No 2. History of ischemic heart disease - No 3. History of HF - No 4. History of cerebrovascular disease - No 5. Diabetes requiring insulin - No 6. 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 Benny Alston COLONOSCOPY 06/13/2023 Dr Souza, Polyps. hemorrhoids LAPAR LUMBAR FUSION ADDITIONAL 08/08/2022 Dr. Lynch FAMILY HISTORY Problem Relation Age of Onset other (Colorectal cancer) Father other (Depressive disorder) Sister Heart Mother Valve problem Macular Degen Mother Breast Cancer Paternal Grandmother No Known Problems Sister No Known Problems Sister Glaucoma Maternal Grandfather Social History Tobacco Use Smoking status: Former Current packs/day: 0.00 Types: Cigarettes Quit date: 01/27/2020 Years since quittin.5 Smokeless tobacco: Current Types: Chew Tobacco comments: vape nicottine Vaping Use Vaping status: current everyday user Substance Use Topics Alcohol use: Yes Comment: social Drug use: No Comment: Past; Type: cocaine, and opiates Current Outpatient Medications Medication Sig metoprolol tartrate, short acting, (LOPRESSOR) 25 mg tablet take 1/2 tablet by mouth twice daily varenicline (CHANTIX) 0.5 mg tablet TAKE 1 TAB DAILY X 3 DAYS,THEN 1 TAB TWICE DAILY X 3 DAYS, THEN 2 TABS TWICE DAILY FOR 22 DAYS loratadine (CLARITIN) 10 mg tablet take 1 tablet by mouth every day acyclovir (ZOVIRAX) 400 mg tablet take 1 tablet by mouth three times a day clonazePAM (KLONOPIN) 0.5 mg tablet Take 1 tablet by mouth every 12 hours. FLUoxetine (PROZAC) 10 mg capsule Take 10 mg by mouth every morning. fluticasone (FLONASE) 50 mcg/actuation nasal spray spray 1 spray into each nostril every day tiZANidine (ZANAFLEX) 4 mg tablet TAKE 1 TABLET BY MOUTH 2 TIMES A DAY NEEDED albuterol HFA (PROVENTIL HFA, VENTOLIN HFA) 90 mcg/actuation inhaler INHALE 2 PUFFS BY MOUTH EVERY 4 TO 6 HOURS amoxicillin-clavulanate potassium (AUGMENTIN) 875-125 mg per tablet Take 1 tablet by mouth every 12 hours. predniSONE (DELTASONE) 20 mg tablet Take 3 pills by mouth daily for 3 days, then 2 pills by mouth daily for 3 days, then 1 pill by mouth daily for 3 days nicotine (NICODERM) 21 mg/24 hr APPLY 1 PATCH DIRECTED EVERY 24 HOURS. nicotine (NICODERM) 14 mg/24 hr APPLY 1 PATCH DIRECTED EVERY 24 HOURS. nicotine (NICODERM) 7 mg/24 hr Apply 1 Patch as directed every 24 hours for 14 days. No current facility-administered medications for this visit. ALLERGIES No Known Allergies Review of Systems Constitution (more content not included)... [facility] 08-09-2024 History of Presen t illness Narrative VIRTUAL VISIT PROGRESS NOTE This is a virtual visit using [employer] Video Visit. It required patient-provider interaction for the medical decision making as documented below. I have communicated my name and active licensure. The patient's identity and physical location were verified at the time of this visit. Either the patient or their legal business office representative has been informed of the risks and benefits of -- and alternatives to -- treatment through a remote evaluation and consents to proceed with the evaluation remotely. Aide Lazo is a 43 year old female seen for preop exam. 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 She is using tobacco pouches here and there, plans on stopping No more smoking Doesn't vape anymore Functional Status of patient: Able to perform activities of daily living: Yes Able to walk up a flight of stairs: Yes - would be a just a tiny bit SOB Able to do heavy house work: Yes Associated Conditions: Does the patient have diabetes: no Does the patient have lung problems: no Does the patient have heart disease: no Cardiac Function Status Can take care of self, such as eat, dress, or use the toilet (1 MET) = Yes Can walk up a flight of steps or a hill or walk on level ground at 3 to 4 mph (4 METs) = Yes Can do heavy work around the house such as scrubbing floors or lifting or moving heavy furniture or climb two flights of stairs (between 4 and 10 METs) = Yes Can participate in strenuous sports such as swimming, singles tennis, football, basketball, and skiing (>10 METs) = Does not Revised Bradley Cardiac Risk Index 1. High risk surgery - No 2. History of ischemic heart disease - No 3. History of HF - No 4. History of cerebrovascular disease - No 5. Diabetes requiring insulin - No 6. 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 Benny Alston COLONOSCOPY 06/13/2023 Dr Souza, Polyps. hemorrhoids LAPAR LUMBAR FUSION ADDITIONAL 08/08/2022 Dr. Lynch FAMILY HISTORY Problem Relation Age of Onset other (Colorectal cancer) Father other (Depressive disorder) Sister Heart Mother Valve problem Macular Degen Mother Breast Cancer Paternal Grandmother No Known Problems Sister No Known Problems Sister Glaucoma Maternal Grandfather Social History Tobacco Use Smoking status: Former Current packs/day: 0.00 Types: Cigarettes Quit date: 01/27/2020 Years since quittin.5 Smokeless tobacco: Current Types: Chew Tobacco comments: vape nicottine Vaping Use Vaping status: current everyday user Substance Use Topics Alcohol use: Yes Comment: social Drug use: No Comment: Past; Type: cocaine, and opiates Current Outpatient Medications Medication Sig metoprolol tartrate, short acting, (LOPRESSOR) 25 mg tablet take 1/2 tablet by mouth twice daily varenicline (CHANTIX) 0.5 mg tablet TAKE 1 TAB DAILY X 3 DAYS,THEN 1 TAB TWICE DAILY X 3 DAYS, THEN 2 TABS TWICE DAILY FOR 22 DAYS loratadine (CLARITIN) 10 mg tablet take 1 tablet by mouth every day acyclovir (ZOVIRAX) 400 mg tablet take 1 tablet by mouth three times a day clonazePAM (KLONOPIN) 0.5 mg tablet Take 1 tablet by mouth every 12 hours. FLUoxetine (PROZAC) 10 mg capsule Take 10 mg by mouth every morning. fluticasone (FLONASE) 50 mcg/actuation nasal spray spray 1 spray into each nostril every day tiZANidine (ZANAFLEX) 4 mg tablet TAKE 1 TABLET BY MOUTH 2 TIMES A DAY NEEDED albuterol HFA (PROVENTIL HFA, VENTOLIN HFA) 90 mcg/actuation inhaler INHALE 2 PUFFS BY MOUTH EVERY 4 TO 6 HOURS amoxicillin-clavulanate potassium (AUGMENTIN) 875-125 mg per tablet Take 1 tablet by mouth every 12 hours. predniSONE (DELTASONE) 20 mg tablet Take 3 pills by mouth daily for 3 days, then 2 pills by mouth daily for 3 days, then 1 pill by mouth daily for 3 days nicotine (NICODERM) 21 mg/24 hr APPLY 1 PATCH DIRECTED EVERY 24 HOURS. nicotine (NICODERM) 14 mg/24 hr APPLY 1 PATCH DIRECTED EVERY 24 HOURS. nicotine (NICODERM) 7 mg/24 hr Apply 1 Patch as directed every 24 hours for 14 days. No current facility-administered medications for this visit. ALLERGIES No Known Allergies Review of Systems Constitutional: Negative for chills, diaphoresis, fever, malaise/fatigue and weight loss. Respiratory: Negative for cough, shortness of breath and wheezing. Cardiovascular: Negative for chest pain, palpitations and leg swelling. Gastrointestinal: Positive for nausea. Negative for abdominal pain, constipation, diarrhea and vomiting. Feels nausea with Chantix Musculoskeletal: Positive for neck pain. Skin: Negative for itching and rash. Neurological: Positive for headaches (from her neck pain). Negative for dizziness and weakness. PHYSICAL EXAMINATION: VIDEO EXAM: (if completed, performed via video enabled technology) GENERAL: alert and appropriate, in no distress, well-hydrated, well nourished, and happy, smiling, interactive SKIN: no rash noted HEAD: normocephalic, no abnormality or lesion noted EYES: no injection and visual acuity is grossly normal EARS: hearing grossly normal NOSE: external nose normal without rhinorrhea OROPHARYNX: moist mucus membranes RESPIRATORY: breathing non-labored NEUROLOGIC: no obvious deficit Latest Ref Rng 08/05/2024 Glucose 74 - 99 mg/dL 96 BUN 7 - 21 mg/dL 7 Creatinine 0.58 - 0.96 mg/dL 0.60 Sodium 136 - 144 mmol/L 138 Potassium 3.7 - 5.1 mmol/L 3.7 Chloride 98 - 107 mmol/L 106 CO2 22 - 30 mmol/L 22 Anion Gap 8 - 15 mmol/L 10 Calcium 8.5 - 10.2 mg/dL 9.1 eGFR >=60 mL/min/1.73m 116 WBC 3.70 - 11.00 k/uL 3.70 RBC 3.90 - 5.20 m/uL 4.19 Hemoglobin 11.5 - 15.5 g/dL 12.2 Hematocrit 36.0 - 46.0 % 38.3 MCV 80.0 - 100.0 fL 91.4 MCH 26.0 - 34.0 pg 29.1 MCHC 30.5 - 36.0 g/dL 31.9 RDW-CV 11.5 - 15.0 % 12.8 Platelet Count 150 - 400 k/uL 220 MPV 9.0 - 12.7 fL 10.1 ASSESSMENT/PLAN: 1. Preop examination - ICD9: V72.84, ICD10: Z01.818 (primary diagnosis) Labs are normal EKG ordered Patient is low risk for perioperative complications - ECG COMPLETE 2. Chronic neck pain - ICD9: 723.1, 338.29, ICD10: M54.2, G89.29 Planned for surgical intervention with Dr Kyrie Beaver APRN.CNP Addendum - EKG - normal sinus rhythm documented in this encounter [facility] 08-04-2024 Telephone encounter Note Patient is informed and she will call back to schedule Marycarmen Levy MA [facility] 08-04-2024 Miscellaneous Notes Patient is informed and she will call back to schedule Marycarmen Levy MA Received form for medical clearance for surgery - scheduled on 08/31/24. She needs a preop visit. I ordered labs for her. It can be virtual if needed but in person preferred. Jens Beaver APRN.NAMAN documented in this encounter [facility] 08-04-2024 Telephone encounter Note Received form for medical clearance for surgery - scheduled on 08/31/24. She needs a preop visit. I ordered labs for her. It can be virtual if needed but in person preferred. Jens Beaver APRN.CNP [facility] 06-14-2024 Telephone encounter Note pharmacy electronically requesting refills as follows: Last seen 03/03/24 . Last refill 12/07/23 . Requested Prescriptions Pending Prescriptions Disp Refills metoprolol tartrate, short acting, (LOPRESSOR) 25 mg tablet [Pharmacy Med Name: METOPROLOL TARTRATE 25 MG TAB] 90 tablet 1 Sig: take 1/2 tablet by mouth twice daily Please review and advise. Bry Flores MA [facility] 06-14-2024 Miscellaneous Notes pharmacy electronically requesting refills as follows: Last seen 03/03/24 . Last refill 12/07/23 . Requested Prescriptions Pending Prescriptions Disp Refills metoprolol tartrate, short acting, (LOPRESSOR) 25 mg tablet [Pharmacy Med Name: METOPROLOL TARTRATE 25 MG TAB] 90 tablet 1 Sig: take 1/2 tablet by mouth twice daily Please review and advise. Bry Flores MA documented in this encounter [facility] 05-04-2024 Telephone encounter Note Pharmacy comment: REQUEST FOR 90 DAYS PRESCRIPTION. DX Code Needed. [facility] 05-04-2024 Miscellaneous Notes Pharmacy comment: REQUEST FOR 90 DAYS PRESCRIPTION. DX Code Needed. documented in this encounter [facility] 04-12-2024 Telephone encounter Note pharm requesting refills: Last office visit 03/03/2024. Last refill 10/06/2023Sep none Requested Prescriptions Pending Prescriptions Disp Refills loratadine (CLARITIN) 10 mg tablet [Pharmacy Med Name: LORATADINE 10 MG TABLET] 90 tablet 1 Sig: take 1 tablet by mouth every day Please review and advise. Daquan Bacon MA [facility] 04-12-2024 Miscellaneous Notes pharm requesting refills: Last office visit 03/03/2024. Last refill 10/06/2023 nov none Requested Prescriptions Pending Prescriptions Disp Refills loratadine (CLARITIN) 10 mg tablet [Pharmacy Med Name: LORATADINE 10 MG TABLET] 90 tablet 1 Sig: take 1 tablet by mouth every day Please review and advise. Daquan Bacon MA documented in this encounter [facility] 03-24-2024 Telephone encounter Note pharm requesting refills: Last office visit 03/03/2024. Last refill 08/04/2023 nov none Requested Prescriptions Pending Prescriptions Disp Refills acyclovir (ZOVIRAX) 400 mg tablet [Pharmacy Med Name: ACYCLOVIR 400 MG TABLET] 21 tablet 2 Sig: take 1 tablet by mouth three times a day Please review and advise. Daquan Bacon MA [facility] 03-24-2024 Miscellaneous Notes pharm requesting refills: Last office visit 03/03/2024. Last refill 08/04/2023 nov none Requested Prescriptions Pending Prescriptions Disp Refills acyclovir (ZOVIRAX) 400 mg tablet [Pharmacy Med Name: ACYCLOVIR 400 MG TABLET] 21 tablet 2 Sig: take 1 tablet by mouth three times a day Please review and advise. Daquan Bacon MA documented in this encounter [facility] 03-05-2024 Telephone encounter Note Taken care of in another encounter. Jens Beaver APRN.CNP [facility] 03-05-2024 Miscellaneous Notes Taken care of in another encounter. Jens Beaver APRN.CNP Pt. Lm on vm requesting letter to have off work for next week. She states she just got her antibiotics right now . Please advise. Daquan Bacon MA documented in this encounter [facility] 03-05-2024 Telephone encounter Note Faxed patients FMLA papers to [employer] [phone]. Daquan Bacon MA [facility] 03-05-2024 Miscellaneous Notes Faxed patients FMLA papers to [employer] [phone]. Daquan Bacon MA documented in this encounter [facility] 03-05-2024 Telephone encounter Note Pt. Lm on requesting letter to have off work for next week. She states she just got her antibiotics right now . Please advise. Daquan Bacon MA [facility] 03-05-2024 Telephone encounter Note Form placed in red folder. Daquan Bacon MA [facility] 03-05-2024 Miscellaneous Notes Form placed in red folder. Daquan Bacon MA documented in this encounter [facility] 03-03-2024 Note HNO ID: [id number] Author: EVETTE BENITEZ, DO Service: ? Author Type: Physician Type: Progress Notes Filed: 03/19/2024 12:57 Note Text: Subjective HPI Pt has not felt well for a few weeks She tried getting better on her own with over the counter cold medication Because she was not getting better, she went to [facility] on 02/25 The did not do a chest xay Her upper back has been hurting between her shoulder blades She had a sore throat, strep test was negative She was diagnosed with pneumonia, given augmentin, prednisone, an inhaler She has been working this whole time, took sick time on Friday, went in on Friday and did OK, but yesterday, felt short of breath 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, 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, but her hand was shaking because she is not feeling well Her watch showed that her pulse was 120 She finished the steroids, has a day or two left of the antibiotics She was given albuterol with a spacer She is still coughing, has sinus drainage, sore throat, ear fullness, headache, fatigue Her chest hurts from coughing, and feels tight with breathing She vapes nicotine daily ALLERGIES No Known Allergies Current Outpatient Medications Medication Sig Dispense Refill albuterol HFA (PROVENTIL HFA, VENTOLIN HFA) 90 mcg/actuation inhaler INHALE 2 PUFFS BY MOUTH EVERY 4 TO 6 HOURS amoxicillin-clavulanate potassium (AUGMENTIN) 875-125 mg per tablet Take 1 tablet by mouth every 12 hours. clonazePAM (KLONOPIN) 0.5 mg tablet Take 1 tablet by mouth every 12 hours. FLUoxetine (PROZAC) 10 mg capsule Take 10 mg by mouth every morning. nicotine (NICODERM) 21 mg/24 hr APPLY 1 PATCH DIRECTED EVERY 24 HOURS. 28 Patch 1 metoprolol tartrate, short acting, (LOPRESSOR) 25 mg tablet take 1/2 tablet by mouth twice daily 90 tablet 1 loratadine (CLARITIN) 10 mg tablet take 1 tablet by mouth every day 90 tablet 1 fluticasone (FLONASE) 50 mcg/actuation nasal spray spray 1 spray into each nostril every day 48 mL 1 acyclovir (ZOVIRAX) 400 mg tablet take 1 tablet by mouth three times a day 21 tablet 2 tiZANidine (ZANAFLEX) 4 mg tablet TAKE 1 TABLET BY MOUTH 2 TIMES A DAY NEEDED predniSONE (DELTASONE) 20 mg tablet Take 2 tablets by mouth every afternoon. (Patient not taking: Reported on 03/03/2024) nicotine (NICODERM) 14 mg/24 hr APPLY 1 PATCH DIRECTED EVERY 24 HOURS. 30 Patch 1 nicotine (NICODERM) 7 mg/24 hr Apply 1 Patch as directed every 24 hours for 14 days. 14 Patch 0 No current facility-administered medications for this visit. ACTIVE PROBLEM LIST History of Surgical Procedure H/O Bilateral Salpingectomy Low Grade Squamous Intraepithelial Lesion On Cytologic Smear of Cervix (Lgsil) Headaches Transient Visual Loss, Bilateral Chorioretinal Scar of Right Eye Lumbosacral Spondylosis Without Myelopathy Lumbar Radiculopathy Thoracic and Lumbosacral Neuritis Tachycardia Social History Tobacco Use Smoking status: Former Packs/day: 1 Types: Cigarettes Quit date: 01/27/2020 Years since quittin.1 Smokeless tobacco: Current Types: Chew Tobacco comments: vape nicottine Vaping Use Vaping Use: current everyday user Substance Use Topics Alcohol use: Yes Comment: social Drug use: No Comment: Past; Type: cocaine, and opiates Family History Problem Relation Age of Onset other (Colorectal cancer) Father other (Depressive disorder) Sister Heart Mother Valve problem Macular Degen Mother Breast Cancer Paternal Grandmother No Known Problems Sister No Known Problems Sister Glaucoma Maternal Grandfather Reviewed past medical history, family history and surgeries. All medications and supplements were reviewed with the patient. Review of Systems Constitutional: Positive for malaise/fatigue. Negative for diaphoresis. HENT: Positive for congestion. Negative for hearing loss. Eyes: Negative for blurred vision and double vision. Respiratory: Positive for cough, sputum production and shortness of breath. Cardiovascular: Negative for palpitations and leg swelling. Gastrointestinal: Negative for constipation and diarrhea. Genitourinary: Negative for dysuria and frequency. Musculoskeletal: Negative for back pain, falls and joint pain. Skin: Negative for itching. Neurological: Negative for dizziness and weakness. Endo/Heme/Allergies: Does not bruise/bleed easily. Psychiatric/Behavioral: Negative for depression and substance abuse. The patient does not have insomnia. Objective BP 108/60 Pulse 76 Temp 36.9 ?C (98.4 ?F) Resp 16 Ht 167.6 cm (5' 6 ) Wt 62.1 kg (137 lb) LMP 06/24/2020 SpO2 97% BMI 22.11 kg/m? Physical Exam Constitutional: Appearance: Normal appearance. HENT: Head: Normocephalic and atraumatic. Nose: Congestion and rhinorrhea present. Mouth/Throat: Mouth: Mucous membranes are moist. Dentition: Normal dentition. Pharynx: Oropharyngeal exudate and posteri (more content not included)... [facility] 03-03-2024 History of Presen t illness Narrative Subjective HPI Pt has not felt well for a few weeks She tried getting better on her own with over the counter cold medication Because she was not getting better, she went to [facility] [place] on 02/25 The did not do a chest xay Her upper back has been hurting between her shoulder blades She had a sore throat, strep test was negative She was diagnosed with pneumonia, given augmentin, prednisone, an inhaler She has been working this whole time, took sick time on Friday, went in on Friday and did OK, but yesterday, felt short of breath 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, 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, but her hand was shaking because she is not feeling well Her watch showed that her pulse was 120 She finished the steroids, has a day or two left of the antibiotics She was given albuterol with a spacer She is still coughing, has sinus drainage, sore throat, ear fullness, headache, fatigue Her chest hurts from coughing, and feels tight with breathing She vapes nicotine daily ALLERGIES No Known Allergies Current Outpatient Medications Medication Sig Dispense Refill albuterol HFA (PROVENTIL HFA, VENTOLIN HFA) 90 mcg/actuation inhaler INHALE 2 PUFFS BY MOUTH EVERY 4 TO 6 HOURS amoxicillin-clavulanate potassium (AUGMENTIN) 875-125 mg per tablet Take 1 tablet by mouth every 12 hours. clonazePAM (KLONOPIN) 0.5 mg tablet Take 1 tablet by mouth every 12 hours. FLUoxetine (PROZAC) 10 mg capsule Take 10 mg by mouth every morning. nicotine (NICODERM) 21 mg/24 hr APPLY 1 PATCH DIRECTED EVERY 24 HOURS. 28 Patch 1 metoprolol tartrate, short acting, (LOPRESSOR) 25 mg tablet take 1/2 tablet by mouth twice daily 90 tablet 1 loratadine (CLARITIN) 10 mg tablet take 1 tablet by mouth every day 90 tablet 1 fluticasone (FLONASE) 50 mcg/actuation nasal spray spray 1 spray into each nostril every day 48 mL 1 acyclovir (ZOVIRAX) 400 mg tablet take 1 tablet by mouth three times a day 21 tablet 2 tiZANidine (ZANAFLEX) 4 mg tablet TAKE 1 TABLET BY MOUTH 2 TIMES A DAY NEEDED predniSONE (DELTASONE) 20 mg tablet Take 2 tablets by mouth every afternoon. (Patient not taking: Reported on 03/03/2024) nicotine (NICODERM) 14 mg/24 hr APPLY 1 PATCH DIRECTED EVERY 24 HOURS. 30 Patch 1 nicotine (NICODERM) 7 mg/24 hr Apply 1 Patch as directed every 24 hours for 14 days. 14 Patch 0 No current facility-administered medications for this visit. ACTIVE PROBLEM LIST History of Surgical Procedure H/O Bilateral Salpingectomy Low Grade Squamous Intraepithelial Lesion On Cytologic Smear of Cervix (Lgsil) Headaches Transient Visual Loss, Bilateral Chorioretinal Scar of Right Eye Lumbosacral Spondylosis Without Myelopathy Lumbar Radiculopathy Thoracic and Lumbosacral Neuritis Tachycardia Social History Tobacco Use Smoking status: Former Packs/day: 1 Types: Cigarettes Quit date: 01/27/2020 Years since quittin.1 Smokeless tobacco: Current Types: Chew Tobacco comments: vape nicottine Vaping Use Vaping Use: current everyday user Substance Use Topics Alcohol use: Yes Comment: social Drug use: No Comment: Past; Type: cocaine, and opiates Family History Problem Relation Age of Onset other (Colorectal cancer) Father other (Depressive disorder) Sister Heart Mother Valve problem Macular Degen Mother Breast Cancer Paternal Grandmother No Known Problems Sister No Known Problems Sister Glaucoma Maternal Grandfather Reviewed past medical history, family history and surgeries. All medications and supplements were reviewed with the patient. Review of Systems Constitutional: Positive for malaise/fatigue. Negative for diaphoresis. HENT: Positive for congestion. Negative for hearing loss. Eyes: Negative for blurred vision and double vision. Respiratory: Positive for cough, sputum production and shortness of breath. Cardiovascular: Negative for palpitations and leg swelling. Gastrointestinal: Negative for constipation and diarrhea. Genitourinary: Negative for dysuria and frequency. Musculoskeletal: Negative for back pain, falls and joint pain. Skin: Negative for itching. Neurological: Negative for dizziness and weakness. Endo/Heme/Allergies: Does not bruise/bleed easily. Psychiatric/Behavioral: Negative for depression and substance abuse. The patient does not have insomnia. Objective BP 108/60 Pulse 76 Temp 36.9 C (98.4 F) Resp 16 Ht 167.6 cm (5' 6 ) Wt 62.1 kg (137 lb) LMP 06/24/2020 SpO2 97% BMI 22.11 kg/m Physical Exam Constitutional: Appearance: Normal appearance. HENT: Head: Normocephalic and atraumatic. Nose: Congestion and rhinorrhea present. Mouth/Throat: Mouth: Mucous membranes are moist. Dentition: Normal dentition. Pharynx: Oropharyngeal exudate and posterior oropharyngeal erythema present. Eyes: General: Lids are normal. Extraocular Movements: Extraocular movements intact. Conjunctiva/sclera: Conjunctivae normal. Pupils: Pupils are equal, round, and reactive to light. Neck: Thyroid: No thyroid mass or thyromegaly. Vascular: No carotid bruit. Trachea: Phonation normal. Cardiovascular: Rate and Rhythm: Normal rate and regular rhythm. Heart sounds: Normal heart sounds. No murmur heard. No friction rub. No gallop. Pulmonary: Effort: Pulmonary effort is normal. Breath sounds: Normal breath sounds. No wheezing, rhonchi or rales. Abdominal: General: Bowel sounds are normal. There is no distension. Palpations: Abdomen is soft. There is no mass. Tenderness: There is no abdominal tenderness. Musculoskeletal: General: No swelling or tenderness. Normal range of motion. Cervical back: Normal range of motion and neck supple. No edema. Lymphadenopathy: Cervical: No cervical adenopathy. Skin: General: Skin is warm and dry. Findings: No erythema or rash. Nails: There is no clubbing. Neurological: Mental Status: She is alert and oriented to person, place, and time. Cranial Nerves: No cranial nerve deficit. Motor: Motor function is intact. Coordination: Coordination normal. Gait: Gait is intact. Psychiatric: Attention and Perception: Attention normal. Mood and Affect: Mood and affect normal. Speech: Speech normal. Behavior: Behavior normal. Behavior is cooperative. Thought Content: Thought content normal. Cognition and Memory: Cognition and memory normal. Judgment: Judgment normal. ASSESSMENT/PLAN: 1. Bacterial sinusitis - ICD9: 473.9, 041.9, ICD10: J32.9, B96.89 - DOXYCYCLINE HYCLATE 100 MG TABLET - PREDNISONE 20 MG TABLET Evette Benitez DO documented in this encounter [facility] 02-18-2024 Miscellaneous Notes pharm requesting refills: Last office visit 02/05/2023. Last refill 12/23/2023 nov none Requested Prescriptions Pending Prescriptions Disp Refills nicotine (NICODERM) 21 mg/24 hr [Pharmacy Med Name: NICOTINE 21 MG/24HR PATCH] 28 Patch 1 Sig: APPLY 1 PATCH DIRECTED EVERY 24 HOURS. Please review and advise. Daquan Bacon MA documented in this encounter [facility] 12-23-2023 Miscellaneous Notes Pharmacy requesting refills as follows: Last Office Visit 02/05/23. Last Refill 08/11/23. Requested Prescriptions Pending Prescriptions Disp Refills nicotine (NICODERM) 21 mg/24 hr [Pharmacy Med Name: NICOTINE 21 MG/24HR PATCH] 28 Patch 1 Sig: APPLY 1 PATCH DIRECTED EVERY 24 HOURS. Please review and advise. Marycarmen Levy MA documented in this encounter [facility] 12-05-2023 Miscellaneous Notes pharm requesting refills: Last office visit 02/05/2023. Last refill 02/05/2023 nov none Requested Prescriptions Pending Prescriptions Disp Refills metoprolol tartrate, short acting, (LOPRESSOR) 25 mg tablet [Pharmacy Med Name: METOPROLOL TARTRATE 25 MG TAB] 90 tablet 1 Sig: take 1/2 tablet by mouth twice daily Please review and advise. Daquan Bacon MA documented in this encounter [facility] 10-06-2023 Miscellaneous Notes pharmacy electronically requesting refills as follows: Last seen 02/05/23 . Last refill 02/05/23 . Requested Prescriptions Pending Prescriptions Disp Refills loratadine (CLARITIN) 10 mg tablet [Pharmacy Med Name: LORATADINE 10 MG TABLET] 90 tablet 1 Sig: take 1 tablet by mouth every day Please review and advise. Bry Flores MA documented in this encounter [facility] 08-29-2023 Miscellaneous Notes Pharmacy requesting refills as follows: Last Office Visit 02/05/23. Last Refill 02/05/23. Requested Prescriptions Pending Prescriptions Disp Refills fluticasone (FLONASE) 50 mcg/actuation nasal spray [Pharmacy Med Name: FLUTICASONE PROP 50 MCG SPRAY] 48 mL 1 Sig: spray 1 spray into each nostril every day Please review and advise. Marycarmen Levy MA documented in this encounter [facility] 08-15-2023 Miscellaneous Notes Pt notified. Daquan Bacon MA Thank you. Please see orders. Jens Beaver APRN.NAMAN ----- Message from Jens Beaver APRN.UTILIZATION MANAGEMENT RN sent at 02/14/2023 10:04 AM EDT ----- Due for lipid panel. documented in this encounter [facility] 08-11-2023 Miscellaneous Notes pharm requesting refills: Last office visit 02/05/23. Last refill 02/05/23 nov none Requested Prescriptions Pending Prescriptions Disp Refills nicotine (NICODERM) 21 mg/24 hr [Pharmacy Med Name: NICOTINE 21 MG/24HR PATCH] 30 Patch 1 Sig: APPLY 1 PATCH DIRECTED EVERY 24 HOURS. Please review and advise. Daquan Bacon MA documented in this encounter [facility] 08-04-2023 Miscellaneous Notes Pharmacy requesting refills as follows: Last Office Visit 02/05/23. Last Refill 10/01/22. Requested Prescriptions Pending Prescriptions Disp Refills acyclovir (ZOVIRAX) 400 mg tablet [Pharmacy Med Name: ACYCLOVIR 400 MG TABLET] 21 tablet 2 Sig: take 1 tablet by mouth three times a day Please review and advise. Marycarmen Levy MA documented in this encounter [facility] 05-21-2023 Miscellaneous Notes pharmacy electronically requesting refills as follows: Last seen 02/05/23 . Last refill 11/22/22 . Requested Prescriptions Pending Prescriptions Disp Refills nicotine (NICODERM) 14 mg/24 hr [Pharmacy Med Name: NICOTINE 14 MG/24HR PATCH] 30 Patch 1 Sig: APPLY 1 PATCH DIRECTED EVERY 24 HOURS. Please review and advise. Bry Flores MA documented in this encounter [facility] 03-11-2023 Miscellaneous Notes Script was sent in 02/05/23 with 1 refill, new script not due until 04/09/23. Bry Flores MA documented in this encounter [facility] 02-28-2023 Miscellaneous Notes Script was sent 02/05/23 for a 6 month supply. Bry Flores MA documented in this encounter [facility] 02-14-2023 Miscellaneous Notes Second request. Patient wants to know about her lab results. Please advise. Daquan Bacon MA documented in this encounter [facility] 02-05-2023 History of Presen t illness Narrative This note was created using [employer] BIriter. Subjective Aide Lazo is a 42 year old female here today for well adult exam. I reviewed past medical, surgical, social, and family histories today and updated chart. Allergies, chronic medications, and supplements were also reviewed. Preventative Health: Breast cancer screening - has never had mammogram Cervical cancer screening - Last Pap January 2020 - Normal, HPV negative Colorectal cancer screening - n/a Osteoporosis screening - n/a Lipid screening - last lipid panel 2016 Immunizations - up to date She still has back pain. Had surgery and was hoping for better results Will take a muscle relaxer as needed and it helps a lot Environmental allergies - rhinorrhea, nasal congestion, sore throat, no itching, eyes feel tired, sneezing URI - went to urgent care - took steroids, antibiotic, inhaler. 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 Benny Alston [facility] LUMBAR FUSION ADDITIONAL 08/08/2022 Dr. Lynch ALLERGIES Patient has no known allergies. MEDICATIONS nicotine (NICODERM) 14 mg/24 hr Apply 1 Patch as directed every 24 hours. acyclovir (ZOVIRAX) 400 mg tablet Take 1 tablet by mouth three times daily. metoprolol tartrate, short acting, (LOPRESSOR) 25 mg tablet TAKE 1/2 TABLET BY MOUTH TWICE A DAY tiZANidine (ZANAFLEX) 4 mg tablet TAKE 1 TABLET BY MOUTH 2 TIMES A DAY NEEDED nicotine (NICODERM) 21 mg/24 hr Apply 1 Patch as directed every 24 hours. nicotine (NICODERM) 7 mg/24 hr Apply 1 Patch as directed every 24 hours for 14 days. FAMILY HISTORY Problem Relation Age of Onset other (Colorectal cancer) Father other (Depressive disorder) Sister Heart Mother Valve problem Macular Degen Mother Breast Cancer Paternal Grandmother No Known Problems Sister No Known Problems Sister Glaucoma Maternal Grandfather Social History Tobacco Use Smoking status: Every Day Packs/day: 1.00 Types: Cigarettes Last attempt to quit: 01/27/2020 Years since quittin.0 Smokeless tobacco: Former Types: Chew Tobacco comments: vape nicottine Vaping Use Vaping Use: current everyday user Substance Use Topics Alcohol use: Yes Comment: social Drug use: No Comment: Past; Type: cocaine, and opiates Review of Systems Constitutional: Negative for appetite change, chills, fatigue, fever and unexpected weight change. HENT: Positive for rhinorrhea and sneezing. Negative for congestion, ear pain and sore throat. Eyes: Negative for pain, discharge, itching and visual disturbance. Respiratory: Negative for cough, shortness of breath and wheezing. Cardiovascular: Negative for chest pain, palpitations and leg swelling. Gastrointestinal: Negative for abdominal pain, constipation, diarrhea, nausea and vomiting. Genitourinary: Negative for difficulty urinating. Musculoskeletal: Positive for back pain. Skin: Negative for rash. Neurological: Negative for dizziness, tremors, weakness and headaches. Psychiatric/Behavioral: Negative for dysphoric mood and sleep disturbance. The patient is not nervous/anxious. Objective BP 100/60 Pulse 76 Temp 36.9 C (98.4 F) Ht 167.6 cm (5' 6 ) Wt 55.3 kg (122 lb) LMP 06/24/2020 SpO2 98% BMI 19.69 kg/m Physical Exam Constitutional: Appearance: Normal appearance. She is well-developed. HENT: Head: Normocephalic and atraumatic. Right Ear: Hearing, tympanic membrane, ear canal and external ear normal. No drainage. Left Ear: Hearing, tympanic membrane, ear canal and external ear normal. No drainage. Nose: Nose normal. Mouth/Throat: Pharynx: Uvula midline. Eyes: General: Lids are normal. Right eye: No discharge. Left eye: No discharge. Conjunctiva/sclera: Conjunctivae normal. Pupils: Pupils are equal, round, and reactive to light. Neck: Thyroid: No thyromegaly. Vascular: No carotid bruit. Trachea: No tracheal deviation. Cardiovascular: Rate and Rhythm: Normal rate and regular rhythm. Heart sounds: Normal heart sounds. No murmur heard. Pulmonary: Effort: Pulmonary effort is normal. Breath sounds: Normal breath sounds. No wheezing, rhonchi or rales. Abdominal: General: Bowel sounds are normal. There is no distension or abdominal bruit. Palpations: Abdomen is soft. There is no mass. Tenderness: There is no abdominal tenderness. Musculoskeletal: Cervical back: Normal range of motion and neck supple. Right lower leg: No edema. Left lower leg: No edema. Lymphadenopathy: Cervical: No cervical adenopathy. Upper Body: Right upper body: No supraclavicular adenopathy. Left upper body: No supraclavicular adenopathy. Skin: General: Skin is warm and dry. Findings: No bruising or rash. Neurological: General: No focal deficit present. Mental Status: She is alert and oriented to person, place, and time. Cranial Nerves: No cranial nerve deficit. Sensory: Sensation is intact. Motor: Motor function is intact. Coordination: Coordination is intact. Gait: Gait is intact. Psychiatric: Mood and Affect: Mood normal. Behavior: Behavior normal. Behavior is cooperative. Thought Content: Thought content normal. Judgment: Judgment normal. ASSESSMENT/PLAN: 1. Well adult exam - ICD9: V70.0, ICD10: Z00.00 (primary diagnosis) - Counseled on healthy diet and regular exercise - Mammogram ordered - exam recommended once yearly - Smoking cessation encouraged; discussed risks to health and quitting strategies. Patient is ready to quit and nicotine replacement prescribed - Follow up for annual exam in one year 2. Encounter for screening mammogram for breast cancer - ICD9: V76.12, ICD10: Z12.31 - Set up for mammogram, yearly mammogram recommended - Follow up for annual exam in one year. - HANK SCREENING 3. Depression screening - ICD9: V79.0, ICD10: Z13.31 - DEPRESSION SCREENING/ASSESSMENT 4. Screening for HIV (human immunodeficiency virus) - ICD9: V73.89, ICD10: Z11.4 - HIV 1 2 COMBO(AG/AB),WITH REFLEX TO DIFFERENTIATION 5. Screening cholesterol level - ICD9: V77.91, ICD10: Z13.220 - LIPID PANEL BASIC 6. Screening for diabetes mellitus - ICD9: V77.1, ICD10: Z13.1 - COMP METABOLIC PANEL 7. Vapes nicotine containing substance - ICD9: 305.1, ICD10: Z72.0 - Cessation encouraged. - Physiologic and physical aspects of tobacco addiction as well as strategies for quitting were discussed. - Counseling was given focusing on the harmful effects of this addiction especially given the patient's medical condition(s) which will be worsened because of the chemicals in tobacco. Jens Beaver APRN.UTILIZATION MANAGEMENT RN documented in this encounter [facility] 08-26-2022 Miscellaneous Notes pharmacy electronically requesting refills as follows: Last seen 08/07/22 . Last refill 02/25/22 . Requested Prescriptions Pending Prescriptions Disp Refills metoprolol tartrate, short acting, (LOPRESSOR) 25 mg tablet [Pharmacy Med Name: METOPROLOL TARTRATE 25 MG TAB] 90 tablet 1 Sig: TAKE 1/2 TABLET BY MOUTH TWICE A DAY Please review and advise. Bry Flores MA documented in this encounter [facility] 02-25-2022 Miscellaneous Notes Pharmacy requesting refills: Last office visit 10/03/2021 Last refill 10/03/2021 nov none Pending Prescriptions Disp Refills METOPROLOL TARTRATE 25 MG TABLET 90 tablet 1 Sig: TAKE 1/2 TABLET BY MOUTH TWICE DAILY RANDY: Yes Please review and advise. Daquan Bacon MA documented in this encounter [facility] 11-07-2021 Note HNO ID: [id number] Author: Chrissy Varela RRT Service: ? Author Type: Registered Resp Therapist Type: Progress Notes Filed: 11/07/2021 6:04 PM Note Text: PULM FUNCTION SMARTBLOCK: Provider: Gee Hawthorne Jr., MD Assisting Tech: Chrissy Varela RRT Spirometry w/BD: 1 DLCO: 1 LV - Gas: 1 System: [id number] [facility] 10-03-2021 Note HNO ID: [id number] Author: Jens Beaver APRN.CNP Service: ? Author Type: Nurse Practitioner Type: Progress Notes Filed: 10/03/2021 6:22 PM Note Text: This note was created using NoteWriter. Subjective Aide Lazo is a 40 year old female here today for COVID19 follow-up, cough. I reviewed past medical, surgical, social, and family histories today and updated chart. Allergies, chronic medications, and supplements were also reviewed. Symptom onset date: 08/03/21 COVID positive date: 08/04/21 She is still coughing. Worse at night. Small amount of clear sputum. Didn't cough a lot when she was home with ISABELA. Seemed to start when she went back to work No sore throat SOB sometimes Today was at work and heart rate shot up and she had trouble breathing. Her smart watch said HR was 160. Then she worries and panics. It will occur when she is at rest She will rest and drink fluids to feel better She stopped pop Drinking tea 1 cup coffee in the morning Vapes menthol Jewl, nicotine 3-5% No history of asthma PAST MEDICAL HISTORY Diagnosis Date - Anxiety - Chronic back pain - Back and neck - Depressive disorder - Drug abuse in remission (HCC) - Generalized anxiety disorder - Known medical problems Heavy cigarette smoker (20-39 cigs/day) - Neck pain - Substance abuse (HCC) - Viral hepatitis C PAST SURGICAL HISTORY Procedure Laterality Date - BACK SURGERY HX 06/2019 Discotomy and lamniectomy, Dr. Benny Alston ALLERGIES Patient has no known allergies. MEDICATIONS acyclovir (ZOVIRAX) 400 mg tablet Take 1 tablet by mouth three times daily. ondansetron (ZOFRAN) 4 mg tablet Take 1 tablet by mouth every 6 hours as needed for nausea/vomiting. loperamide HCl (IMODIUM A-D) 2 mg tab Take 2 tablets x1, then 1 tablet after each loose stool. Do not take more than 4 tablets in 24 hours. albuterol HFA (PROVENTIL HFA, VENTOLIN HFA) 90 mcg/actuation inhaler Inhale 2 Puffs as instructed. FAMILY HISTORY Problem Relation Age of Onset - other (Colorectal cancer) Father - other (Depressive disorder) Sister - Heart Mother Valve problem - Macular Degen Mother - Breast Cancer Paternal Grandmother - No Known Problems Sister - No Known Problems Sister - Glaucoma Maternal Grandfather Social History Tobacco Use - Smoking status: Current Every Day Smoker Packs/day: 1.00 Types: Cigarettes Last attempt to quit: 01/27/2020 Years since quittin.6 - Smokeless tobacco: Former User Types: Chew - Tobacco comment: vape nicottine Vaping Use - Vaping Use: current everyday user Substance Use Topics - Alcohol use: Yes Comment: social - Drug use: No Comment: Past; Type: cocaine, and opiates Review of Systems Constitutional: Positive for fatigue. Negative for appetite change, chills, fever and unexpected weight change. HENT: Positive for congestion (Sometimes in the mornings). Negative for ear pain, rhinorrhea and sore throat. Eyes: Negative for pain, discharge, itching and visual disturbance. Respiratory: Positive for cough and shortness of breath. Negative for wheezing. Cardiovascular: Positive for palpitations. Negative for chest pain and leg swelling. Gastrointestinal: Negative for abdominal pain, constipation, diarrhea, nausea and vomiting. Genitourinary: Negative for difficulty urinating. Musculoskeletal: Positive for back pain. Negative for arthralgias. Right sided back pain - everytime she coughs it hurts bad back there Skin: Negative for rash. Neurological: Positive for headaches. Negative for dizziness, tremors and weakness. Psychiatric/Behavioral: Negative for dysphoric mood and sleep disturbance. The patient is nervous/anxious. Getting a good 8 hours of sleep Taking mucinex night time syrup Boyfriend tells her she's coughing all night Brain fog Trouble concentrating No memory loss really - maybe a little bit short term Getting through her work day is okay Objective BP 110/60 Pulse 98 Temp 37.2 ?C (99 ?F) Ht 167.6 cm (5' 6 ) Wt 56.2 kg (124 lb) LMP 06/24/2020 SpO2 100% BMI 20.01 kg/m? Physical Exam Constitutional: General: She is not in acute distress. Appearance: She is well-developed. She is not toxic-appearing. HENT: Head: Normocephalic and atraumatic. Right Ear: Hearing, tympanic membrane, ear canal and external ear normal. No drainage. Tympanic membrane is not injected or bulging. Left Ear: Hearing, tympanic membrane, ear canal and external ear normal. No drainage. Tympanic membrane is not injected or bulging. Nose: Nose normal. No mucosal edema or rhinorrhea. Mouth/Throat: Lips: [place]. Mouth: Mucous membranes are moist. No oral lesions. Pharynx: Oropharynx is clear. Uvula midline. No oropharyngeal exudate or posterior oropharyngeal erythema. Eyes: General: Lids are normal. Right eye: No discharge. Left eye: No discharge. Conjunctiva/sclera: Conjunctivae normal. Pupil (more content not included)... [facility] 08-21-2021 Note HNO ID: [id number] Author: Jens Beaver APRN.UTILIZATION MANAGEMENT RN Service: ? Author Type: Nurse Practitioner Type: Progress Notes Filed: 08/25/2021 9:22 AM Note Text: Telemedicine Evaluation for COVID-19 Infection MyChart video visit was used for evaluation of this patient. Location of patient: [facility] Aide Lazo is a 40 year old female who presents with 18 days of symptoms that are stable. Symptom onset date: 08/03/21 COVID positive date: 08/04/21 Still having sinus congestion and cough Cant breath through nose at night Sore throat Last night fever 100.4 This morning no temperature Pulse oximeter 86% then went up 94% Just now during visit 99% HR goes up to 110 Yellow nasal drainage Symptoms include: Fever (?100.4F): Yes or Chills: Yes - last night Eyes were hurting a little bit Cough: Yes Shortness of breath: No or Difficulty breathing: No Fatigue: Yes Muscle aches: Yes - getting much better Headache: Yes New loss of smell or taste: Yes - its coming back Sore throat: Yes Nasal congestion: Yes or Rhinorrhea: Yes Nausea: No or Vomiting: No Diarrhea: No OTC meds/remedies that patient has tried: Mucinex and claritin, tylenol and motrin High risk category assessment No high risk factors Exposures: Sick contacts? No Family or close contacts with confirmed/probable COVID-19 in last 14 days? No She reports that she has been smoking cigarettes. She has been smoking about 1.00 pack per day. She has quit using smokeless tobacco. Her smokeless tobacco use included chew. Has been off work [employer] nurse has been calling her Was told to start FMLA/Short term disability OBJECTIVE VIDEO EXAM (if available) Self-reported heart rate: 90-100s Self-reported pulse oximetry: 99% GENERAL: Ill-appearing, but non-toxic HEENT: no conjunctival injection, pupils equal, moist mucous membranes, oropharynx clear without erythema and no cervical adenopathy by self-palpation PULMONARY: breathing comfortably on room air , coughing and no wheezing noted ASSESSMENT/PLAN (U07.1) COVID-19 (primary encounter diagnosis) (J01.00) Acute maxillary sinusitis, recurrence not specified Start doxycycline for sinusitis Continue fluids, OTC cough and decongestant medications Follow up for worsening or persistent symptoms. - Discussed symptom monitoring and supportive care - Red flag symptoms requiring follow up discussed This patient encounter involved the screening or treatment of novel coronavirus infection (COVID-19). Jens Beaver APRN.NAMAN [facility] 08-13-2021 Note HNO ID: [id number] Author: Jennifer Montenegro MD Service: ? Author Type: Physician Type: Progress Notes Filed: 08/13/2021 4:39 PM Note Text: VIRTUAL VISIT PROGRESS NOTE This is a virtual visit using NetHooks video visit. It required patient-provider interaction for the medical decision making as documented below. The visit was switched to a virtual encounter from office visit due to COVID-19 pandemic. Persons Present: patient Chief Complaint/Reason: COVID follow up This note was created using LearnZillion[employer]. Subjective The patient is calling in for an acute visit. She normally sees Jens Beaver CNP. The patient reports she tested positive for COVID on 08/03. She reports her symptoms started that day with a bad headache. She reports she went to work, and ended up leaving because she wasn't feeling well. [facility] went [facility] and was tested there. She denies any sick contacts. She is not vaccinated against COVID. She reports she had a UTI on Friday and was placed on antibotics. She reports she is feeling weak and having a headache. She reports she has been taking mucinex D which doesn't seem to be helping. She is having chest tightness and shortness of breath. She has been monitoring her oxygen, pulse and temperatures at home. She has had some low grade temperatures. She reports she is having some diarrhea. She reports she did have some vomiting on Friday, but that has since resolved. The patient reports she isn't bringing up much mucous and reports she doesn't have much of a cough. She does vape. Location of patient: [place] Symptoms include: Fever (=100.4F): Yes or Chills: Yes Cough: Yes Shortness of breath: Yes or Difficulty breathing: No Fatigue: Yes Muscle aches: Yes Headache: Yes New loss of smell or taste: Yes Sore throat: Yes Nasal congestion: Yes or Rhinorrhea: Yes Nausea: Yes or Vomiting: Yes Diarrhea: Yes OTC meds/remedies that patient has tried: Mucinex. High risk category assessment No high risk factors Exposures: Sick contacts? No Family or close contacts with confirmed/probable COVID-19 in last 14 days? No HISTORY REVIEWED (electronic chart updated): ALLERGIES No Known Allergies Current Outpatient Medications Medication Sig Dispense Refill - ondansetron (ZOFRAN) 4 mg tablet Take 1 tablet by mouth every 6 hours as needed for nausea/vomiting. 30 tablet 0 - loperamide HCl (IMODIUM A-D) 2 mg tab Take 2 tablets x1, then 1 tablet after each loose stool. Do not take more than 4 tablets in 24 hours. 20 tablet 0 No current facility-administered medications for this visit. 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 On Cytologic Smear of Cervix (Lgsil) Headaches Transient Visual Loss, Bilateral Chorioretinal Scar of Right Eye Social History Tobacco Use - Smoking status: Former Smoker Packs/day: 1.00 Types: Cigarettes Quit date: 01/27/2020 Years since quittin.5 - Smokeless tobacco: Former User Types: Chew - Tobacco comment: since age 15 yrs Vaping Use - Vaping Use: current everyday user Substance Use Topics - Alcohol use: Yes Comment: social - Drug use: No Comment: Past; Type: cocaine, and opiates Family History Problem Relation Age of Onset - other (Colorectal cancer) Father - other (Depressive disorder) Sister - Heart Mother Valve problem - Macular Degen Mother - Breast Cancer Paternal Grandmother - No Known Problems Sister - No Known Problems Sister - Glaucoma Maternal Grandfather Reviewed past medical and surgical history. Review of Systems Constitutional: Positive for chills, fatigue and fever. HENT: Positive for congestion, rhinorrhea, sinus pressure and sore throat. Negative for ear discharge, ear pain and sinus pain. Respiratory: Positive for cough, chest tightness and shortness of breath. Cardiovascular: Negative for chest pain. Gastrointestinal: Positive for diarrhea, nausea and vomiting. Musculoskeletal: Positive for myalgias. Skin: Negative for rash. Neurological: Positive for light-headedness and headaches. Negative for dizziness and syncope. Objective Pulse 107 Temp (!) 38.2 ?C (100.7 ?F) LMP 06/24/2020 SpO2 95% Physical Exam VIDEO EXAM: (if completed, performed via video enabled technology) GENERAL: alert and appropriate, in no distress, well-hydrated, well nourished and happy, smiling, interactive Ill appearing: No Lethargic appearing: No SKIN: no rash noted HEAD: normocephalic, no abnormality or lesion noted EYES: no injection EARS: external ears normal, no tenderness with pulling on ears bilaterally NOSE: external nose normal without rhinorrhea maxillary sinuses tender to self-palpation OROPHARYNX: moist mucus membr (more content not included)... [facility] 09-14-2015 History of Past i llness Narrative Problem Noted Date Resolved Date Tobacco use 09/14/2015 08/07/2022 Tobacco abuse 09/14/2015 08/07/2022 documented as of this encounter (statuses as of 08/27/2022) [facility] History of Past illness Narrative* Problem Noted Date Resolved Date Tobacco use 09/14/2015 08/07/2022 Tobacco abuse 09/14/2015 08/07/2022 documented as of this encounter (statuses as of 10/01/2022) [facility] History of Past illness Narrative* Problem Noted Date Resolved Date Tobacco use 09/14/2015 08/07/2022 Tobacco abuse 09/14/2015 08/07/2022 documented as of this encounter (statuses as of 02/06/2023) [facility] History of Past illness Narrative* Problem Noted Date Resolved Date Tobacco use 09/14/2015 08/07/2022 Tobacco abuse 09/14/2015 08/07/2022 documented as of this encounter (statuses as of 02/14/2023) [facility] History of Past illness Narrative* Problem Noted Date Resolved Date Tobacco use 09/14/2015 08/07/2022 Tobacco abuse 09/14/2015 08/07/2022 documented as of this encounter (statuses as of 02/28/2023) [address]12-2015 History of Past illness Narrative* Problem Noted Date Resolved Date Tobacco use 09/14/2015 08/07/2022 Tobacco abuse 09/14/2015 08/07/2022 documented as of this encounter (statuses as of 03/12/2023) [address]2015 History of Past illness Narrative* Problem Noted Date Diagnosed Date Resolved Date Tobacco use 09/14/2015 08/07/2022 Tobacco abuse 09/14/2015 08/07/2022 documented as of this encounter (statuses as of 05/22/2023) [address]2015 History of Past illness Narrative* Problem Noted Date Diagnosed Date Resolved Date Tobacco use 09/14/2015 08/07/2022 Tobacco abuse 09/14/2015 08/07/2022 documented as of this encounter (statuses as of 08/05/2023) [address]2015 History of Past illness Narrative* Problem Noted Date Diagnosed Date Resolved Date Tobacco use 09/14/2015 08/07/2022 Tobacco abuse 09/14/2015 08/07/2022 documented as of this encounter (statuses as of 08/12/2023) [address]2015 History of Past illness Narrative* Problem Noted Date Diagnosed Date Resolved Date Tobacco use 09/14/2015 08/07/2022 Tobacco abuse 09/14/2015 08/07/2022 documented as of this encounter (statuses as of 08/15/2023) [facility] History of Past illness Narrative* Problem Noted Date Diagnosed Date Resolved Date Tobacco use 09/14/2015 08/07/2022 Tobacco abuse 09/14/2015 08/07/2022 documented as of this encounter (statuses as of 08/30/2023) [address]2015 History of Past illness Narrative* Problem Noted Date Diagnosed Date Resolved Date Tobacco use 09/14/2015 08/07/2022 Tobacco abuse 09/14/2015 08/07/2022 documented as of this encounter (statuses as of 10/07/2023) [facility] History of Past illness Narrative* Problem Noted Date Diagnosed Date Resolved Date Tobacco use 09/14/2015 08/07/2022 Tobacco abuse 09/14/2015 08/07/2022 documented as of this encounter (statuses as of 12/07/2023) [facility] History of Past illness Narrative* Problem Noted Date Diagnosed Date Resolved Date Tobacco use 09/14/2015 08/07/2022 Tobacco abuse 09/14/2015 08/07/2022 documented as of this encounter (statuses as of 12/24/2023) [facility] History of Past illness Narrative* Problem Noted Date Diagnosed Date Resolved Date Tobacco use 09/14/2015 08/07/2022 Tobacco abuse 09/14/2015 08/07/2022 documented as of this encounter (statuses as of 02/19/2024) [facility] note* Diagnosis Smokes cigarettes- Primary Tobacco use disorder documented in this encounter [facility] note* Diagnosis Recurrent cold sores Herpes simplex without mention of complication documented in this encounter [facility] note* Diagnosis Well adult exam- Primary Routine general medical examination at a health care facility Encounter for screening mammogram for breast cancer Depression screening Screening for depression Screening for HIV (human immunodeficiency virus) Special screening examination for other specified viral diseases Screening cholesterol level Screening for lipoid disorders Screening for diabetes mellitus Vapes nicotine containing substance documented in this encounter [facility] note* Diagnosis Smokes cigarettes Tobacco use disorder [facility]* Diagnosis Recurrent cold sores Herpes simplex without mention of complication documented in this encounter [facility] note* Diagnosis Nicotine dependence, cigarettes, uncomplicated documented in this encounter [facility] note* Diagnosis Hyperlipidemia, mixed- Primary Mixed hyperlipidemia documented in this encounter [facility] note* Diagnosis Nicotine dependence, cigarettes, uncomplicated documented in this encounter [facility] note* Diagnosis Bacterial pneumonia- Primary Bacterial pneumonia, unspecified documented in this encounter [facility] note* Diagnosis Bacterial sinusitis- Primary Unspecified sinusitis (chronic) documented [facility]* Diagnosis Recurrent cold sores Herpes simplex without mention of complication [facility]* Diagnosis Smokes cigarettes- Primary Tobacco use disorder documented [facility]* Diagnosis Smokes cigarettes Tobacco use disorder documented in this encounter [facility] note* Diagnosis Preop examination- Primary Preoperative examination, unspecified documented in this encounter [facility] note* Diagnosis Preop examination- Primary Preoperative examination, unspecified Chronic neck pain Cervicalgia documented in this encounter [facility] for referral (narrative)* Diagnostic Procedure Only (Routine) - Pending Review Specialty Diagnoses / Procedures Referred By Karma anthony Referred To Contact [facility] Diagnoses Encounter for screening mammogram for breast cancer Procedures HANK SCREENING SCREENING MAMMOGRAPHY BI 2-VIEW BREAST INC CAD Jens Beaver APRN.CNP [address] [place] [address] [facility] [address] [place] [address] Referral ID Status Reason Start Date Expiration Date Visits Requested Visits Authorized [id number] Pending Review Auto-Generat ed Referral 02/05/2023 03/06/2024 1 1 [facility] for referral (narrative)* Outpatient Procedure (Routine) - Closed Specialty Diagnoses / Procedures Referred By Karma anthony Ref[facility] Diagnoses Preop examination Procedures ECG COMPLETE ECG ROUTINE ECG W/LEAST 12 LDS W/I&R Jens Beaver APRN.UTILIZATION MANAGEMENT RN [address] [place] [address] [facility] [address] [place] [address] Referral ID Status Reason Start Date Expiration Date V isits Requested Visits Authorized [id number] Closed Auto-Generate d Referral 08/09/2024 08/09/2025 1 1 [facility] Summary Purpose Family History No Family History Records FoundNo Family History Records FoundNo Family History Records FoundNo Family History Records FoundNo Family History Records FoundNo Family History Records FoundNo Family History Records Found Advance Directives Documents on File Type Date 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 Left L4-5 micro discectomy 2. 3. 4. 5. Surgeon: Edwin Resident/Fellow/Other Tie Buyer: Moose Anesthesia: General, 0.5% marcaine with epi locally I.V. Fluids: 1100ml Estimated Blood Loss (mL): scant Specimen: no Findings: large disc protrusion Operative Report Dictated: Dictation: not applicable - note contains Operative Report Operative Report: Indications for surgery: Patient had the onset of low back and left leg pain December 2018. Had fallen off of a hover board. No weakness intractable left leg pain with numbness in her left great toe. She was referred to ar by a pain management physician after she had failed 2 epidural steroid injections. Had physical therapy. Her MRI showed a large left L4-5 disc protrusion impinging on the left L5 nerve root. Past operative treatment in the way of getting a left L4-5 micro-lumbar discectomy be minima (more content not included)... Additional Source Comments INFORMATION SOURCE (unrecogn ized section and content) DATE CREATED AUTHOR 04/29/2018 [facility] DATE CREATED AUTHOR AUTHOR'S ORGANIZ ATION 08/14/2018 [facility] DATE CREATED AUTHOR AUTHOR'S ORGANIZ ATION 05/25/2019 [facility] DATE CREATED AUTHOR AUTHOR'S ORGANIZ ATION 06/29/2020 [facility] DATE CREATED AUTHOR AUTHOR'S ORGANIZ ATION 01/23/2022 [facility] DATE CREATED AUTHOR AUTHOR'S ORGANIZ ATION 01/10/2023 [facility] DATE CREATED AUTHOR AUTHOR'S ORGANIZ ATION 08/16/2024 [facility] Source Comments (unrecognize d section and content) In the event this informatio n is protected by the Federal Confidentiality of Alcohol and Drug Abuse Patient Records regulations: The Federal rules restrict any use of the information to criminally investigate or prosecute any alcohol or drug abuse patient.[facility] event this information is protected by the Federal Confidentiality of Alcohol and Drug Abuse Patient Records regulations: The Federal rules restrict any use of the information to criminally investigate or prosecute any alcohol or drug abuse patient.[facility] the event this information is protected by the Federal Confidentiality of Alcohol and Drug Abuse Patient Records regulations: The Federal rules restrict any use of the information to criminally investigate or prosecute any alcohol or drug abuse patient.[facility] the event this information is protected by the Federal Confidentiality of Alcohol and Drug Abuse Patient Records regulations: The Federal rules restrict any use of the information to criminally investigate or prosecute any alcohol or drug abuse patient.[facility] the event this information is protected by the Federal Confidentiality of Alcohol and Drug Abuse Patient Records regulations: The Federal rules restrict any use of the information to criminally investigate or prosecute any alcohol or drug abuse patient.[facility] the event this information is protected by the Federal Confidentiality of Alcohol and Drug Abuse Patient Records regulations: The Federal rules restrict any use of the information to criminally investigate or prosecute any alcohol or drug abuse patient.[facility] the event this information is protected by the Federal Confidentiality of Alcohol and Drug Abuse Patient Records regulations: The Federal rules restrict any use of the information to criminally investigate or prosecute any alcohol or drug abuse patient.[facility] the event this information is protected by the Federal Confidentiality of Alcohol and Drug Abuse Patient Records regulations: The Federal rules restrict any use of the information to criminally investigate or prosecute any alcohol or drug abuse patient.[facility] the event this information is protected by the Federal Confidentiality of Alcohol and Drug Abuse Patient Records regulations: The Federal rules restrict any use of the information to criminally investigate or prosecute any alcohol or drug abuse patient.[facility] the event this information is protected by the Federal Confidentiality of Alcohol and Drug Abuse Patient Records regulations: The Federal rules restrict any use of the information to criminally investigate or prosecute any alcohol or drug abuse patient.[facility] the event this information is protected by the Federal Confidentiality of Alcohol and Drug Abuse Patient Records regulations: The Federal rules restrict any use of the information to criminally investigate or prosecute any alcohol or drug abuse patient.[facility] the event this information is protected by the Federal Confidentiality of Alcohol and Drug Abuse Patient Records regulations: The Federal rules restrict any use of the information to criminally investigate or prosecute any alcohol or drug abuse patient.[facility] the event this information is protected by the Federal Confidentiality of Alcohol and Drug Abuse Patient Records regulations: The Federal rules restrict any use of the information to criminally investigate or prosecute any alcohol or drug abuse patient.[facility] the event this information is protected by the Federal Confidentiality of Alcohol and Drug Abuse Patient Records regulations: The Federal rules restrict any use of the information to criminally investigate or prosecute any alcohol or drug abuse patient.[facility] the event this information is protected by the Federal Confidentiality of Alcohol and Drug Abuse Patient Records regulations: The Federal rules restrict any use of the information to criminally investigate or prosecute any alcohol or drug abuse patient.[facility] the event this information is protected by the Federal Confidentiality of Alcohol and Drug Abuse Patient Records regulations: The Federal rules restrict any use of the information to criminally investigate or prosecute any alcohol or drug abuse patient.[facility] the event this information is protected by the Federal Confidentiality of Alcohol and Drug Abuse Patient Records regulations: The Federal rules restrict any use of the information to criminally investigate or prosecute any alcohol or drug abuse patient.[facility] the event this information is protected by the Federal Confidentiality of Alcohol and Drug Abuse Patient Records regulations: The Federal rules restrict any use of the information to criminally investigate or prosecute any alcohol or drug abuse patient.[facility] the event this information is protected by the Federal Confidentiality of Alcohol and Drug Abuse Patient Records regulations: The Federal rules restrict any use of the information to criminally investigate or prosecute any alcohol or drug abuse patient.[facility] the event this information is protected by the Federal Confidentiality of Alcohol and Drug Abuse Patient Records regulations: The Federal rules restrict any use of the information to criminally investigate or prosecute any alcohol or drug abuse patient.[facility] the event this information is protected by the Federal Confidentiality of Alcohol and Drug Abuse Patient Records regulations: The Federal rules restrict any use of the information to criminally investigate or prosecute any alcohol or drug abuse patient.[facility]In the event this information is protected by the Federal Confidentiality of Alcohol and Drug Abuse Patient Records regulations: The Federal rules restrict any use of the information to criminally investigate or prosecute any alcohol or drug abuse patient.[facility]In the event this information is protected by the Federal Confidentiality of Alcohol and Drug Abuse Patient Records regulations: The Federal rules restrict any use of the information to criminally investigate or prosecute any alcohol or drug abuse patient.[facility]In the event this information is protected by the Federal Confidentiality of Alcohol and Drug Abuse Patient Records regulations: The Federal rules restrict any use of the information to criminally investigate or prosecute any alcohol or drug abuse patient.[facility]In the event this information is protected by the Federal Confidentiality of Alcohol and Drug Abuse Patient Records regulations: The Federal rules restrict any use of the information to criminally investigate or prosecute any alcohol or drug abuse patient.[facility] the event this information is protected by the Federal Confidentiality of Alcohol and Drug Abuse Patient Records regulations: The Federal rules restrict any use of the information to criminally investigate or prosecute any alcohol or drug abuse patient.[facility] the event this information is protected by the Federal Confidentiality of Alcohol and Drug Abuse Patient Records regulations: The Federal rules restrict any use of the information to criminally investigate or prosecute any alcohol or drug abuse patient.[facility] the event this information is protected by the Federal Confidentiality of Alcohol and Drug Abuse Patient Records regulations: The Federal rules restrict any use of the information to criminally investigate or prosecute any alcohol or drug abuse patient.[facility] the event this information is protected by the Federal Confidentiality of Alcohol and Drug Abuse Patient Records regulations: The Federal rules restrict any use of the information to criminally investigate or prosecute any alcohol or drug abuse patient.[facility] the event this information is protected by the Federal Confidentiality of Alcohol and Drug Abuse Patient Records regulations: The Federal rules restrict any use of the information to criminally investigate or prosecute any alcohol or drug abuse patient.[facility]In the event this information is protected by the Federal Confidentiality of Alcohol and Drug Abuse Patient Records regulations: The Federal rules restrict any use of the information to criminally investigate or prosecute any alcohol or drug abuse patient.[facility] the event this information is protected by the Federal Confidentiality of Alcohol and Drug Abuse Patient Records regulations: The Federal rules restrict any use of the information to criminally investigate or prosecute any alcohol or drug abuse patient.[facility]In the event this information is protected by the Federal Confidentiality of Alcohol and Drug Abuse Patient Records regulations: The Federal rules restrict any use of the information to criminally investigate or prosecute any alcohol or drug abuse patient.[facility] HospitalIn the event this information is protected by the Federal Confidentiality of Alcohol and Drug Abuse Patient Records regulations: The Federal rules restrict any use of the information to criminally investigate or prosecute any alcohol or drug abuse patient.[facility] Reason for Visit (unrecogniz ed section and content) Reason Comments Refill Request Reason Comments Physical Nicotine Dependence Wants 21 patch Allergies Wants Claritin Reason Comments Orders Reason Comments Patient Question Wants letter for wor k Reason Comments FMLA Paperwork FMLA Reason Comments Pneumonia For the last 6 weeks went to [facility] on and they diagnosed her. Has been taking the antibiotics, steroids and inhalers but it is not going away Reason Comments Med Change Request Reason Comments clearance form Form put in red fold er Reason Comments Forms Medical Clearance fo r Surgery Reason Comments Pre-Op Exam Neck surgery on 08/04. Dr badillo is doing surgery in [place] Reason Comments Patient Question Reason Comments Electronic Communication FMLA Care Teams (unrecognized sec tion and content) Under Baster Relationship Specialty Start Date End Date Jens Beaver, ANGELA.UTILIZATION MANAGEMENT RN [address] [place] [address] PCP - General Family Practice 08/23/16 Under Baster Relationship Specialty Start Date End Date Jens Beaver, CATERING TRUCK OPERATOR.UTILIZATION MANAGEMENT RN [address] [place] [address] PCP - General Family Practice 08/23/16 Under Baster Relationship Specialty Start Date End Date Jens Beaver, CATERING TRUCK OPERATOR.UTILIZATION MANAGEMENT RN [address] [place] [address] PCP - General Family Medicine 08/23/16 Under Baster Relationship Specialty Start Date End Date Jens Beaver, CATERING TRUCK OPERATOR.UTILIZATION MANAGEMENT RN [address] [place] [address] PCP - General Family Medicine 08/23/16 Under Baster Relationship Specialty Start Date End Date Jens Beaver, CATERING TRUCK OPERATOR.UTILIZATION MANAGEMENT RN [address] [place] [address] PCP - General Family Medicine 08/23/16 Under Baster Relationship Specialty Start Date End Date Jens Beaver, CATERING TRUCK OPERATOR.UTILIZATION MANAGEMENT RN [address] [place] [address] PCP - General Family Medicine 08/23/16 Under Baster Relationship Specialty Start Date End Date Jens Beaver, CATERING TRUCK OPERATOR.UTILIZATION MANAGEMENT RN [address] [place] [address] PCP - General Family Medicine 08/23/16 Under Baster Relationship Specialty Start Date End Date Jens Beaver, CATERING TRUCK OPERATOR.UTILIZATION MANAGEMENT RN [address] [place] [address] PCP - General Family Medicine 08/23/16 Under Baster Relationship Specialty Start Date End Date Jens Beaver, CATERING TRUCK OPERATOR.UTILIZATION MANAGEMENT RN [address] [facility] [place] [address] PCP - General Family Medicine 08/23/16 Under Baster Relationship Specialty Start Date End Date Jens Beaver CATERING TRUCK OPERATOR.UTILIZATION MANAGEMENT RN [address] [place] [address] PCP - General Family Medicine 08/23/16 Under Baster Relationship Specialty Start Date End Date Jens Beaver CATERING TRUCK OPERATOR.UTILIZATION MANAGEMENT RN [address] [place] [address] PCP - General Family Medicine 08/23/16 Under Baster Relationship Specialty Start Date End Date Jens Beaver CATERING TRUCK OPERATOR.UTILIZATION MANAGEMENT RN [address] [place] [address] PCP - General Family Medicine 08/23/16 Under Baster Relationship Specialty Start Date End Date Jens Beaver CATERING TRUCK OPERATOR.UTILIZATION MANAGEMENT RN [address] [place] [address] PCP - General Family Medicine 08/23/16 Under Baster Relationship Specialty Start Date End Date Jens Beaver APRN.UTILIZATION MANAGEMENT RN [address] [place] [address] PCP - General Family Medicine 08/23/16 Under Baster Relationship Specialty Start Date End Date Jens Beaver CATERING TRUCK OPERATOR.UTILIZATION MANAGEMENT RN [address] [place] [address] PCP - General Family Medicine 08/23/16 Under Baster Relationship Specialty Start Date End Date Jens Beaver CATERING TRUCK OPERATOR.UTILIZATION MANAGEMENT RN [address] [place] [address] PCP - General Family Medicine 08/23/16 Under Baster Relationship Specialty Start Date End Date Jens Beaver CATERING TRUCK OPERATOR.UTILIZATION MANAGEMENT RN [address] [place] [address] PCP - General Family Medicine 08/23/16 Under Baster Relationship Specialty Start Date End Date Jens Beaver, CATERING TRUCK OPERATOR.UTILIZATION MANAGEMENT RN [address] [place] [address] PCP - General Family Medicine 08/23/16 Under Baster Relationship Specialty Start Date End Date Jens Beaver, CATERING TRUCK OPERATOR.UTILIZATION MANAGEMENT RN [address] [place] [address] PCP - General Family Medicine 08/23/16 Under Baster Relationship Specialty Start Date End Date Jens Beaver CATERING TRUCK OPERATOR.UTILIZATION MANAGEMENT RN [address] [place] [address] PCP - General Family Medicine 08/23/16 Under Baster Relationship Specialty Start Date End Date Jens Beaver CATERING TRUCK OPERATOR.UTILIZATION MANAGEMENT RN [address] [place] [address] PCP - General Family Medicine 08/23/16 FOR RECORDS PERTAINING TO PATIENTS WHO ARE OR HAVE BEEN ENROLLED IN A CHEMICAL DEPENDENCY/SUBSTANCEABUSE PROGRAM, SOME INFORMATION MAY BE OMITTED. This clinical summary was aggregated from multiple sources. Caution should be exercised in using it in the provision of clinical care. This summary normalizes information from multiple sources, and as a consequence, information in this document may materially change the coding, format and clinical context of patient data. In addition, data may be omitted in some cases. CLINICAL DECISIONS SHOULD BE BASED ON THE PRIMARY CLINICAL RECORDS. [facility]. provides no warranty or guarantee of the accuracy or completeness of information in this document.
[2024-08-31] MEDS: Lactated Ringers 1,000 ML 15 ML IV ×2 (06:13→11:52)
[2024-08-31] MEDS: Magnesium 1 GM over 15 mins IV (06:13)
[2024-08-31] MEDS: dexAMETHasone 10 MG/ML Vial 8 MG IV (06:13)
[2024-08-31] MEDS: Acetaminophen 500 MG Tablet 1000 MG PO (06:14)
--- NOTE | 2024-08-31 06:30 | RAD_ITS ---
INDICATION: C3-4, C4-5 DISC REPLACEMENT IN OR EXAMINATION/TECHNIQUE: X-RAY - XR Spine Cervical 2 or 3 Views COMPARISON: 05/13/2024 FINDINGS: Images were obtained intraoperatively on a C-arm for disc implants at the levels of C3-C4 and C4-C5. Images were obtained for documentation and not for diagnostic purposes. Number of fluoroscopic images 11. Fluoroscopy time: 27.3 seconds. Radiation dosage: 1.75 mGy. RAD/Cerv Spine 2 or 3 Views IMPRESSION: Intraoperative exam as described above.. Electronically Signed: Margarito Chapman MD at 14:06 EDT ,
--- NOTE | 2024-08-31 07:17 | PCM.PRE.AN2 ---
ASA Classification* ASA Classification ASA Classification: 2 Assessment & Plan Anesthesia* Anesthesia Assessment Anesthesia Assessment: Discussed sedation and/or anesthesia options, risks, benefits, and alternatives with patient/parents/legal guardian/POA. Questions invited. The patient/parents/legal guardian/POA seems to understand and agrees to proceed with anesthesia plan. Reviewed the physical assessment, medical history, allergy history and patient home medications list prior to surgery/procedure/anesthetic and documented any changes. Performed airway and anesthesia risk assessments. Anesthesia Type Anesthesia Type: MAC Anesthesia Focused Assessment* Temperature: 98.8 F Pulse Rate: 68 Blood Pressure: 102/66 Respiratory Rate: 18 Pulse Ox: 100 Airway Assessment Mouth opens: >3 cm Mallampati Score: III Focused Labs Anesthesia Preop lab: CBC WBC 4.6 K/mm3 (4.4-11.0) 08/24/24 15:24 RBC 4.08 M/mm3 (4.2-5.4) L 08/24/24 15:24 Hgb 11.8 g/dL (12.0-15.0) L 08/24/24 15:24 Hct 37.4 % (37-47) 08/24/24 15:24 Plt Count 224 K/mm3 (150-450) 08/24/24 15:24 CHEMISTRY Potassium 3.7 mmol/L (3.5-5.1) 05/19/23 16:42 Sodium 137 mmol/L (136-145) 05/19/23 16:42 Magnesium 2.2 mg/dL (1.6-2.6) 08/24/24 15:24 BUN 11 mg/dL (7-18) 05/19/23 16:42 Creatinine 0.72 mg/dL (0.55-1.02) 05/19/23 16:42 Glucose 97 mg/dL (74-106) 05/19/23 16:42 TSH 0.58 uIU/mL (0.358-3.74) 05/19/23 16:42 COAG PT 12.8 SECONDS (11.7-14.9) 08/01/22 10:53 Pre-Assessment Diagnosis/Proposed Procedure Planned Operative Procedure(s): C3-4 C4-5 DISC REPLACEMENT Anesthesia History Anesthesia History - radiology aide: Anesthesia History - radiology aide Hx Hospitalization No 08/19/24 09:10 Any Problems With Anesthesia No 08/19/24 09:10 Cholinesterase deficiency No 08/19/24 09:10 You/Your Family Experience No 08/19/24 09:10 fever (hyperthermia) with Relationship Recent Exposure to Contagious No 08/31/24 05:58 Disease Does patient have nerve No 08/19/24 09:10 stimulator Patient instructed to have device shut off --Does patient have Pacemaker No 08/31/24 05:58 or ICD? When Was Last Pacemaker Check QUESTION #4 FULL TEXT: You/Your Family Experience fever (hyperthermia) with Anesthesia Last Oral Intake Last Oral intake: Last Oral Intake NPO since 04:00 08/31/24 05:58 Meds taken in AM with sips of Yes 08/31/24 05:58 water? Meds patient instructed to take am of surgery PONV PONV - radiology aide: PONV - radiology aide Female Yes 08/19/24 09:10 HX of Motion Sickness Yes 08/19/24 09:10 HX of N/V After Surgery No 08/19/24 09:10 Non-Smoker No 08/19/24 09:10 Duration of Surgery greater Yes 08/19/24 09:10 than 60 minutes Number of Risk Factors 3 08/19/24 09:10 PONV Score Moderate Risk 08/19/24 09:10 Height & Weight Height & Weight: Anesthesia: Height & Weight Height 5 ft 6 in 08/31/24 05:58 Weight: 62.9 kg 08/31/24 05:58 Body Mass Index (BMI) 22.4 08/31/24 05:58 Respiratory Assessment Respiratory Assessment - radiology aide: Respiratory Tract Infection Hx - radiology aide Hx Respiratory Tract Infection No 08/19/24 09:10 STOP Sleep Apnea STOP Sleep Apnea - radiology aide: STOP Sleep Apnea - radiology aide Hx Hypertension Yes: CONTROLLED WITH MED 08/19/24 09:10 Hx Sleep Apnea No 08/19/24 09:10 CPAP BIPAP Do you snore loudly (louder No 08/19/24 09:10 than talking or can be heard Do you often feel tired/ No 08/19/24 09:10 fatigued/ sleepy during daytime? Has anyone observed you stop No 08/19/24 09:10 breathing during sleep? STOP Results Negative 08/19/24 09:10 QUESTION #5 FULL TEXT : Do you snore loudly (louder than talking or can be heard through closed doors)? 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 Specify any problems Hx of Preganancy in last 3 No 08/19/24 09:10 Months Nurse Filling Out Transfusion DSCHRIBER 08/19/24 09:10 & Questions: Date: 08/19/24 08/19/24 09:10 Time: 09:12 08/19/24 09:10 Patient unable to answer at this time (ie. confused, unrespo /Reproduction History /Reproductive History - radiology aide: /Reproductive Hx- radiology aide Hx Now No 08/19/24 09:10 Gestational Age (in weeks): EDC: Hx Hx Para Hx Section SAB No 08/19/24 09:10 Active Medications Active Medications: Current Medications Generic Name Dose Route Start Last Admin Trade Name Jody PRN Reason Stop Dose Admin Acetaminophen 1,000 mg 08/31/24 07:30 08/31/24 06:14 Acetaminophen 500 Mg Tablet PO 08/31/24 07:31 1,000 mg X1 ONE Administration Dexamethasone Sodium Phosphate 8 mg 08/31/24 07:30 08/31/24 06:13 Dexamethasone 10 Mg/Ml Vial IV 08/31/24 07:31 8 mg PREOP ONE Administration Cefazolin Sodium 2 gm/ N/A 20 mls @ 400 mls/hr 08/31/24 07:30 IV 08/31/24 07:32 PREOP ONE Tranexamic Acid 1,000 mg/ 110 mls @ 660 mls/hr 08/31/24 07:30 Sodium Chloride IV 08/31/24 07:39 X1 ONE Tranexamic Acid 1,000 mg/ 110 mls @ 660 mls/hr 08/31/24 07:30 Sodium Chloride IV 08/31/24 07:39 X1 ONE Magnesium Sulfate 1 gm/ 102 mls @ 408 mls/hr 08/31/24 07:30 08/31/24 06:13 Dextrose IV 08/31/24 07:44 408 mls/hr X1 ONE Administration Lactated Ringer's 1,000 mls @ 15 mls/hr 08/31/24 06:00 08/31/24 06:13 IV 09/05/24 19:19 15 mls/hr .Q48H TRINITY Administration Protocol Insulin Human Lispro 1 - 6 unit 08/31/24 07:30 Insulin Lispro 100 Unit/Ml Insuln.Pen SC 08/31/24 18:00 Q4H PRN PRN BG>/= 180, SEE PROTOCOL Protocol PFSH Medical History Wears glasses Depression Anxiety Substance abuse Marijuana use Alcohol use Arthritis Migraine headache Smoker Shortness of breath on exertion Hypertension Wears dentures History of steroid therapy Back pain Injury of head and neck History of pain when walking History of echocardiogram History of irregular heartbeat Home Medications ?Medication ?Instructions ?Recorded ?Last Taken ?Type metoprolol succinate 25 mg 12.5 mg PO BID BP 07/29/22 08/31/24 04:00 History tablet,extended release 24 hr tizanidine 4 mg tablet (Zanaflex) 4 mg PO BID PRN Pain 07/29/22 08/30/24 History clonazepam 0.5 mg tablet 0.5 mg PO BID 05/13/24 08/31/24 04:00 History fluoxetine 10 mg capsule 10 mg PO QDAY 05/13/24 08/30/24 History varenicline 0.5 mg tablet 0.5 mg PO BID 05/13/24 08/30/24 History albuterol sulfate 90 mcg/actuation 2 puff inhalation Q6H PRN PRN 08/19/24 08/27/24 History aerosol inhaler shortness of breath or wheezing Allergy/AdvReac Type Severity Reaction Status Date / Time No Known Allergies Allergy Verified 08/31/24 05:56 Family History Mother Hypertension Father Hypertension Surgical History S/P spinal fusion S/P hernia repair Hx of tubal ligation History of back surgery Social History household members: spouse Smoking Status: Current some day smoker tobacco type: e-cigarettes and smokeless tobacco alcohol intake: current alcohol intake frequency: a few times a month substance use type: does not use Review of Systems (Anesthesia) ROS Narrative System reviewed and no additional complaints, except as documented.
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
[2024-08-31 08:07] LABS: Bedside Glucose 118 mg/dL (74-106)
[2024-08-31] MEDS: Cefazolin 2 GM in Syringe IV (09:00)
[2024-08-31] MEDS: TXA 1000mg in NS100 100ml (IVPB at Incision) 660 MG IV (09:03)
[2024-08-31] MEDS: TXA 1000mg in NS100 100ml (IVPB at Closure) 660 MG IV (10:49)
--- NOTE | 2024-08-31 11:05 | PCM.OPRPT ---
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 Anesthesia: Gen. endotracheal Estimated blood loss: 20 mL Complications: None Instrumentation used: [employer] Mobi-C cervical disc replacement implants Indications: The patient is a pleasant 43-year-old lady who presented with symptoms of neck pain, progressive right worse than left shoulder pain, difficulty with dexterity and balance. Imaging revealed C3-5 disc degeneration, kyphosis. After prolonged course of nonsurgical treatment and to halt the progression of myelopathy, patient requested surgical intervention. All risks and benefits of the procedure were explained to the patient. The risks include but are not limited to infection, bleeding, injury to nerves and vessels, vertebral artery injury, spinal cord injury, paralysis, vocal cord paralysis, injury to esophagus, need for further procedures, adjacent segment degeneration, heterotopic ossification, implant loosening, implant failure, DVT, pulmonary embolism, cardiopulmonary event, etc. Procedure: The patient was identified in the preoperative suite using unique patient identifiers. Skin was marked consent was taken and all questions were answered. The patient was then brought back to the operative room and a timeout was performed. General endotracheal anesthesia was given. Intraoperative neuro monitoring leads were applied. The patient was carefully positioned supine on a regular OR table. A lateral x-ray with a C-arm was done to identify the level and to define the incision. The anterior neck was then prepped and draped in the usual fashion. A final timeout was then performed. A transverse skin incision was then taken to the left of midline 2 fingerbreadths above the clavicle. Subcutaneous tissue was then divided with Bovie. Platysma was identified and cut transversely with scissors. The fascial interval between the sternocleidomastoid and the larynx was developed. Omohyoid was identified and mobilized medially and inferiorly. Carotid sheath was laterally while the esophagus with the larynx was retracted medially to reach the prevertebral fascia. All prevertebral layers of fascia were bluntly dissected and a [place] pin was placed into one of the bodies. A lateral C-arm image was used to confirm the correct level. Once this was done longus coli muscle was elevated on both sides at and above and below C3-5 discs. Shadow line retractors were then placed with great care to protect the esophagus. A long handle knife was then used to perform annulotomy at C3-4. Disc fragments were removed with the pituitary. [place] pins were placed in C3 and C4 for disc distraction. Curettes were utilized to remove cartilage from the endplates. Discectomy was performed laterally up to the uncovertebral joints. Adequate decompression was performed, PLL was thinned out. Foramina were decompressed without taking down the uncovertebral processes. Once the disc space was prepared, trials of various sizes were utilized. Thorough irrigation was given. Mobi-C anterior cervical disc replacement implant of size 15 x 15 mm with 5 mm height was then placed under fluoroscopic guidance. Adequate positioning was noticed on AP and lateral views. The retractors were then moved to the C4-5 disc space and the procedure of complete discectomy and decompression was repeated. Mobi-C implant of 15 x 15 mm with 5 mm height was placed at this level. AP and lateral fluoroscopy confirmed good position. Thorough irrigation was again given. Hemostasis was achieved with FloSeal and bipolar cautery. Closure was done with 3-0 Vicryl for the platysma and subcutaneous tissue layers and 4-0 Monocryl for the skin. Closure was done in layers. Steri-Strips were applied and dressing was done with 4 x 4 gauze and Tegaderm. A cervical collar was then applied. The patient was then woken up from anesthesia extubated and taken to PACU in stable condition. Intraoperative neuro monitoring was performed throughout this procedure. Motor evoked potentials were run periodically. All potentials remained at baseline throughout the procedure. I was present for the entire surgery and performed the surgery myself. Surgical Findings: See operative note Radio Personality materials engineering technician: Yes Apartment Community Manager: Buffy Jose Tasks completed by first mate: Closing and Retracting Complications Complications: No Admit VTE Documentation VTE Mechan Device Prophylaxis: SCD's Procedures Musculoskeletal [id number]: Other Procedure See Report
--- NOTE | 2024-08-31 11:27 | PCM.POST.ANE ---
Anesthesia: Postop Eval I Current Vital Signs Temperature: 97.5 F Pulse Rate: 93 Blood Pressure: 114/66 Respiratory Rate: 16 Pulse Ox: 95 Oxygen Delivery Method: Room Air Assessment Airway patent: Yes Spontaneous unlabored respirations: Yes Mental status: Awake and Calm nausea: No Vomiting: No Anesthesia Complication: No Fluid Hydration Crystalloid volume administer (ml): 900 Total IV fluid infused: 900 Progress Note Anesthesia document: Postop Eval 1 completed: Yes
--- NOTE | 2024-08-31 11:56 | POSTOPAN2_ITS ---
Anesthesia Postop Eval I Sum Postop Eval Completion status Anesthesia document: Postop Eval 1 completed: Yes Anesthesia Postop Eval I Summary Anesthesia Postop Eval I Summary: Anesthesia Postop Eval I: Assessment Summary Airway patent Yes 08/31/24 11:28 [email or web address] Spontaneous unlabored Yes 08/31/24 11:28 [email or web address] respirations Mental status Awake,Calm 08/31/24 11:28 [email or web address] nausea No 08/31/24 11:28 [email or web address] Vomiting No 08/31/24 11:28 [email or web address] Anesthesia Postop Eval I: Fluid Summary Crystalloid volume administer 900 08/31/24 11:28 [email or web address] (ml) Colloids volume administered ( ml) Blood Product volume administered (ml) Total IV fluid infused 900 08/31/24 11:28 [email or web address] Anesthesia Postop Eval I: Summary Notes Anesthesia Complication No 08/31/24 11:28 [email or web address] Anesthesia Complication Comment: Post-operative progress note Anesthesia: Postop Eval II Evaluation Mental status: Awake Pain Level: 0 nausea: No Vomiting: No
--- NOTE | 2024-08-31 11:56 | PCM.POSTANE2 ---
Anesthesia Postop Eval I Sum Postop Eval Completion status Anesthesia document: Postop Eval 1 completed: Yes Anesthesia Postop Eval I Summary Anesthesia Postop Eval I Summary: Anesthesia Postop Eval I: Assessment Summary Airway patent Yes 08/31/24 11:28 MARKETING ANALYTICS SPECIALIST.[email or web address] Spontaneous unlabored Yes 08/31/24 11:28 MARKETING ANALYTICS SPECIALIST.GDOTT respirations Mental status Awake,Calm 08/31/24 11:28 MARKETING ANALYTICS SPECIALIST.GDOTT nausea No 08/31/24 11:28 MARKETING ANALYTICS SPECIALIST.GDOTT Vomiting No 08/31/24 11:28 MARKETING ANALYTICS SPECIALIST.GDOTT Anesthesia Postop Eval I: Fluid Summary Crystalloid volume administer 900 08/31/24 11:28 MARKETING ANALYTICS SPECIALIST.GDOTT (ml) Colloids volume administered ( ml) Blood Product volume administered (ml) Total IV fluid infused 900 08/31/24 11:28 MARKETING ANALYTICS SPECIALIST.GDOTT Anesthesia Postop Eval I: Summary Notes Anesthesia Complication No 08/31/24 11:28 MARKETING ANALYTICS SPECIALIST.GDOTT Anesthesia Complication Comment: Post-operative progress note Anesthesia: Postop Eval II Evaluation Mental status: Awake Pain Level: 0 nausea: No Vomiting: No
[2024-08-31] MEDS: HYDROcodone Bitartrate/Apap 5/325 Tablet PO (13:55)
== END 2024-08-31 16:19 | disposition home or self-care (01) ==
LOC: SDC 05:25 → AC 05:29
PROVIDERS: Anesthesiology; PCP Nurse Practitioner Family; Referring Provider Orthopaedic Surgery Orthopaedic Surgery of the Spine; Visit Provider Orthopaedic Surgery Orthopaedic Surgery of the Spine
PROC: (CPT 22856; principal; 2024-08-31 07:00)
DX: M48.02 Spinal stenosis, cervical region (principal); M40.12 Other secondary kyphosis, cervical region; M50.320 Other cervical disc degeneration, mid-cervical region, unspecified level; F41.9 Anxiety disorder, unspecified; I10 Essential (primary) hypertension; F32.A Depression, unspecified; F17.290 Nicotine dependence, other tobacco product, uncomplicated; F17.220 Nicotine dependence, chewing tobacco, uncomplicated; Z79.51 Long term (current) use of inhaled steroids; Z79.899 Other long term (current) drug therapy
CPT/HCPCS: 22856; 22858; 00600; 36415; 72040; 76000; 82962; 83735; 85025; 86703; 86706; 86708; 86803; 86850; 86900; 86901; 87077; 87081; 87522; A4648; J7120; J2405; J3475

== ENCOUNTER 2024-11-26 15:00 | Outpatient (RCR) | payer BC, SELFPAY ==
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
--- NOTE | 2024-11-26 15:23 | HP.PTDCSUM ---
Discharge Summary D/C summary: It has been my pleasure to treat WILFREDO LAZO referred by Dr. Daniel Mittal MD, with the diagnosis of OTHER SPECIFIED POSTPROCEDURAL STATUS for a total of 8 visit(s). Discharge Date: 11/26/24 Please see the following information for a summary of their discharge status. Subjective Subjective: Doing well .. Plan to seen DR next week [employer] . Talk to Dr about RTW Pain Bilateral: Pain Intensity (Out of 10): 0 Bilateral Neck: Pain Intensity (Out of 10): 0 Overall Improvement % Improvement: 80 Objective Objective/Function: POSTURE: mild forward posture PALAPTION: WFL NEURO: denies paresthesia/tingling ,reflexes C5-6-7 2/3 AROM: BUE WFL MMT: BUE grossly 4/5 ,shoulder 4/5 CERVICAL ROM: flexion WFL loss ,lateral flexion min loss , lateral flexion min loss ,extension min loss Goals Goal 1:: Patient to be I with HEP for neck Goal Progress: Goal Met Goal 2:: Patient to improve cervical ROM for function of recovery to rotate neck for driving. Goal Progress: Goal Met Goal 3:: Patient to improve neck oswestry score by 5 points to improve QOL and function Goal Progress: Goal Met Goal 4:: Patient to demonstrate 50 % improvement with increase function and less pain Goal Progress: Goal Met Goal 5:: Patient be able to RTW with min limitations Goal Progress: Goal Met Plan Plan: D/C D/C Information Discharge Comments: HEP d/c sentence: If there are questions or concerns regarding this patient's physical therapy, please feel free to call me at [phone]. Thank you for the referral of this patient. Sincerely, Mike Pate, PT, Cert MDT, OCS Balance/Gait/Functional tests Balance/Special Test Scores Oswestry Neck Score: 8 Improvement % Improvement: 80
== END 2024-11-26 19:00 | disposition home or self-care (01) ==
LOC: PT 15:00
PROVIDERS: PCP Nurse Practitioner Family; Visit Provider Orthopaedic Surgery Orthopaedic Surgery of the Spine
DX: Z98.890 Other specified postprocedural states (principal)
CPT/HCPCS: 97110; 97162; 97530

== ENCOUNTER 2025-07-01 14:58 | Emergency (ER) | payer BC, SELFPAY ==
[2025-07-01 14:59] VITALS: BP 138/61; PULSE 74; RESP 18; TEMP 36.9; O2SAT 99; BMI 20.6
--- NOTE | 2025-07-01 15:22 | EKG12_ITS ---
Test Reason : CP Blood Pressure : */* mmHG Vent. Rate : 68 BPM Atrial Rate : 68 BPM P-R Int : 162 ms QRS Dur : 76 ms QT Int : 410 ms P-R-T Axes : 75 65 59 degrees QTcB Int : 435 ms Normal sinus rhythm with sinus arrhythmia Normal ECG Confirmed by Gee Salazar ([id number]), index editor VELASQUEZ AYALA ([id number]) on 07/05/2025 10:05:14 AM Referred By: RACHEL/[email or web address] Confirmed By: Gee Salazar
--- NOTE | 2025-07-01 15:53 | EX.ED.VIS.UR ---
HPI HPI - URI History of Present Illness Chief Complaint: Chest Pain Informant: patient Onset/Context/Timing Onset: Weeks Context: Gradual Onset Timing: Continuous Current Severity: Mild Maximum Severity: Mild Associated Symptoms Associated Symptoms: Positive for Chest Pain and Productive Cough Narrative Narrative: 44-year-old female history of anxiety, vaping, marijuana use hypertension. Says she has had a cough for 2 weeks initially was productive of clear phlegm. She denies any fever. Says she feels at times short of breath and like she cannot take a deep breath. Intermittent wheezing. No prior history of DVT or PE. No calf pain or swelling. No recent travel or surgery. No hemoptysis. Prior similar symptoms: Yes Recent Illness/Hospitalization: No ROS ROS ED ROS Narrative Cough. Shortness of breath. Chest pain with coughing. Sputum. Constitutional Constitutional ED: Denies chills or fever(s) Eyes Eyes: Denies blurry vision ENT ENT ED: Denies ear pain Cardiovascular Cardiovascular: Reports chest pain Respiratory/Chest Respiratory/Chest: Reports cough and dyspnea Gastrointestinal Gastrointestinal: Denies abdominal pain, diarrhea, nausea or vomiting Genitourinary Genitourinary ED: Denies dysuria or hematuria Musculoskeletal Musculoskeletal: Denies arthralgias or back pain Integumentary Denies abscess Neurologic Neurologic: Denies headache(s) Psychiatric Psychiatric: Reports anxiety Endocrine Endocrinology: Denies cold intolerance Hematologic/Lymphatic Hematologic/Lymphatic: Denies easy bleeding, easy bruising or lymphadenopathy Allergic/Immunologic Allergic/Immunologic ED: Denies mouth swelling, tongue swelling or urticaria [facility] Medical History Wears glasses Depression Anxiety Substance abuse Marijuana use Alcohol use Arthritis Migraine headache Smoker Shortness of breath on exertion Hypertension Wears dentures History of steroid therapy Back pain Injury of head and neck History of pain when walking History of echocardiogram History of irregular heartbeat Home Medications ?Medication ?Instructions ?Recorded ?Last Taken ?Type metoprolol succinate 25 mg 12.5 mg PO BID BP 07/29/22 08/31/24 04:00 History tablet,extended release 24 hr clonazepam 0.5 mg tablet 0.5 mg PO BID 05/13/24 08/31/24 04:00 History fluoxetine 10 mg capsule 10 mg PO QDAY 05/13/24 08/30/24 History varenicline tartrate 0.5 mg tablet 0.5 mg PO BID 05/13/24 08/30/24 History albuterol sulfate 90 mcg/actuation 2 puff inhalation Q6H PRN PRN 08/19/24 08/27/24 History aerosol inhaler shortness of breath or wheezing prednisone 20 mg tablet 40 mg (2 x 20 mg) PO DAILY 5 days 07/01/25 Unknown Rx #10 tabs Allergy/AdvReac Type Severity Reaction Status Date / Time No Known Allergies Allergy Verified 07/01/25 14:59 Family History Mother Hypertension Father Hypertension Surgical History S/P spinal fusion S/P hernia repair Hx of tubal ligation History of back surgery Social History household members: spouse Smoking Status: Current some day smoker tobacco type: e-cigarettes and smokeless tobacco alcohol intake: current alcohol intake frequency: a few times a month substance use type: does not use EXAM Physical Exam Narrative Exam Narrative: Well-appearing 44-year-old female. Vital signs stable afebrile. Pulse ox 9 9% on room air no signs hypoxia. No distress. H EENT exam pupils round reactive light. Moist mucous memories. Neck nontender no JVD. No lymphadenopathy. Lungs prolonged expiratory phase. Dry cough. No rales or rhonchi. Currently no wheezing. Equal symmetrical. Heart regular rhythm rate about 70 no murmur. Chest wall nontender. No crepitance or subcu air. Abdomen soft nontender. Back nontender. Moving all 4 extremities. Nontender no edema no cords. Calves nontender. Normal training manager strength. Normal dorsi plantarflexion. Equal symmetrical radial pulses. Neurologically she is awake alert. Answering questions following commands. Const Vital Signs: 07/01/25 14:59 07/01/25 15:48 07/01/25 15:56 Temperature 98.5 F Temperature Source Oral Pulse Rate 74 Respiratory Rate 18 Respiratory Effort Normal Non-Labored Respiratory Depth Respiratory Pattern Blood Pressure 138/61 H Blood Pressure Mean 86 Pulse Ox 99 Oxygen Delivery Method Room Air Room Air 07/01/25 15:58 07/01/25 16:24 Temperature Temperature Source Pulse Rate 88 Respiratory Rate 16 Respiratory Effort Normal Non-Labored Respiratory Depth Normal Respiratory Pattern Normal Blood Pressure Blood Pressure Mean Pulse Ox Oxygen Delivery Method Room Air Positive well nourished and well developed; Negative for obese, cachectic or contractures General Appearance ED: well developed and NAD; Negative for cachectic, contractures, cyanotic or diaphoretic Nutritional Appearance: Negative for cachectic or obese HEENT Reports moist mucous membranes normocephalic and atraumatic Throat: posterior oropharynx normal Eyes PERRL and EOMs intact bilaterally General Eye ED: Negative for pale conjunctiva or scleral icterus Neck no lymphadenopathy, supple, no meningeal signs and no JVD General: Negative for anterior neck swelling or lymphadenopathy Resp normal respiratory effort and No clear to auscultation bilaterally Resp Narrative: Coarse breath sounds. Dry cough. Prolonged expiratory phase. Auscultation: Negative for rales, rhonchi or wheezes Cardio S1 normal heart sound, S2 normal heart sound and no murmurs Rate: regular rate Rhythm: regular rhythm GI non-tender, non-distended and no masses Inspection: Negative for abdominal distention Auscultation: normoactive bowel sounds Palpation: soft; Negative for tender, guarding or mass Back/Spine no CVA tenderness and normal ROM Extremity normal to inspection and full ROM General Extremety ED: Negative for cyanosis or tenderness General Extremity: Negative for cyanosis Neuro oriented x3 and CN's II-XII intact bilaterally Sensorium / Orientation: alert, oriented to person, oriented to place and oriented to time Motor Exam: strength 5/5 throughout Psych mental status grossly normal Attitude: No agitated Mood & Affect: Negative for depressed, anxious or tearful Skin General Skin Exam: Negative for jaundice Lesions: no lesions Rashes: no rashes MDM MDM MDM Narrative Medical decision making narrative: 44-year-old female URI symptoms I do not think this is cardiac chest pain and only is a DVT or PE she has no history or risk factors for that. No recent travel, surgery or immobilization. I think primarily this is a URI she has had it for 2 weeks. Rule out pneumonia versus COVID flu etc. She be treated with aerosols and DuoNeb. She will undergo cardiac workup along with a two-view chest x-ray. Repeat exam at 5:05 PM patient doing well. She is moving air much better after the aerosols and steroids. Diagnosis of viral URI. Placed on prednisone. She already has an inhaler. Outpatient follow-up. Patient is comfortable with the plan. History & Record Review Discussion w/independent historian: Patient Additional record(s) reviewed:: Prior inpatient record, Prior outpatient record, Prior ED visit and Prior labs Lab Data Attestation: I reviewed the patient's lab results. Lab results narrative: CBC shows a white count of 7. H&H 11.8 and 36. Platelets 251. Electrolytes show gap 11. Normal BUN and creatinine of 0.6. Glucose 88. Initial troponin is less than 6. She does not need a second. She has had symptoms for 2 weeks. COVID, flu and RSV were all negative. Labs: Laboratory Results - last 24 hr 07/01/25 15:50 WBC 7.4 RBC 4.06 L Hgb 11.8 L Hct 36.2 L MCV 89.2 MCH 29.1 MCHC 32.6 RDW Std Deviation 43.6 RDW Coeff of Sandy 13.3 Plt Count 251 MPV 10.1 Immature Gran % (Auto) 0.100 Neut % (Auto) 51.7 Lymph % (Auto) 32.0 Mcclain % (Auto) 8.7 Eos % (Auto) 6.8 H Baso % (Auto) 0.7 Absolute Neuts (auto) 3.8 Absolute Lymphs (auto) 2.35 Nucleated RBC % 0 Sodium 138 Potassium 3.5 Chloride 105 Carbon Dioxide 22.6 Anion Gap 11 BUN 11 Creatinine 0.64 L Estim Creat Clear Calc 104.87 Est GFR (MDRD) Non-Af 113 BUN/Creatinine Ratio 17.7 Glucose 88 Calcium 9.4 Troponin T High Sens < 6 Radiography Chest X-Ray - ED: 2 View, Read by ED Physician, Normal, Heart, Lungs, Mediastinum, Bony Structures, No Acute Disease, Chronic Changes and Cardiomegaly Diagnostic Testing: Chest x-ray, 2 views, AP and lateral, interpreted by myself shows normal cardiac silhouette. Normal lung chao. No acute process. No pneumonia. No pneumothorax. Rhythm Strip Rhythm Strip: Sinus Rhythm Rate: 68 Ectopy: None EKG Initial EKG: Attestation: I personally reviewed and interpreted this EKG as follows: Interpretation: Sinus Rhythm and No Acute Injury Pattern Comments: Normal sinus rhythm rate of 68 no acute signs of ischemia. No dysrhythmia. Discharge Plan Triage Chief Complaint: Chest Pain Other Complaint: Shortness of Breath ED Provider: Kenneth Henderson Dx/Rx/DC Orders Clinical Impression: Viral URI, Atypical chest pain Instructions: ED URI, Viral, No Abx (Adult) Prescriptions: New prednisone 20 mg tablet 40 mg PO DAILY 5 Days Qty: 10 0RF No Action fluoxetine 10 mg capsule 10 mg PO QDAY clonazepam 0.5 mg tablet 0.5 mg PO BID varenicline tartrate 0.5 mg tablet 0.5 mg PO BID metoprolol succinate 25 mg Tablet Extended Release 24 Hr 12.5 mg PO BID albuterol sulfate 90 mcg/actuation HFA aerosol inhaler 2 puff INHALATION Q6H PRN PRN (Reason: shortness of breath or wheezing) Primary Care Provider: Jil Ventura NP Referrals: Jil Ventura NP, [employer] [Primary Care Provider] - 1 Week if not improving Activity Restrictions/Additional Instructions: Use your inhaler 2 puffs every 4 hours as needed. Use the steroids that I wrote you for daily 40 mg a day for 5 more days. Long-term strongly consider stopping vaping. It is terrible for your lungs. I suspect this is a viral respiratory infection. There is no signs of pneumonia. There is no signs that it is related to your heart. Should progressively improve with the steroids, inhaler and over the next several days to a week. Print Language: Portuguese Disposition Disposition: Home, Self Care
[2025-07-01] MEDS: Albuterol 2.5 MG/3 ML VIAL.NEB. INHALATION (16:04)
[2025-07-01 16:07] LABS: Hematocrit 36.2 % (37-47); Hemoglobin 11.8 g/dL (12.0-15.0); Immature Granulocytes Count 0.010 X10^3/uL (0.0-0.0); Mean Corp Hgb Conc 32.6 g/dL (32-36); Mean Corpuscular Volume 89.2 fL (81-99); Mean Platelet Vol. 10.1 fl (6.2-12.0); NRBC Flagged by Analyzer 0 % (0-5); Platelet Count 251 K/mm3 (150-450); RBC Distribution Width CV 13.3 % (11.6-14.6); RBC Distribution Width SD 43.6 fl (35.1-43.9); Red Blood Count 4.06 M/mm3 (4.2-5.4); White Blood Count 7.4 K/mm3 (4.4-11.0)
[2025-07-01 16:24] VITALS: PULSE 88; RESP 16
[2025-07-01 16:24] LABS: Anion Gap 11 (5-15); BUN 11 mg/dL (4-19); BUN/Creat Ratio 17.7 RATIO (10-20); Calcium,Total 9.4 mg/dL (7.6-11.0); Carbon Dioxide 22.6 mmol/L (21.0-32.0); Chloride 105 mmol/L (98-108); Estimated Creatinine Clearance 104.87 ml/min (50-250); Glucose 88 mg/dL (70-99); Potassium 3.5 mmol/L (3.3-5.1); Troponin T High Sensitivity < 6 ng/L (<=14)
--- NOTE | 2025-07-01 17:00 | RAD_ITS ---
PROCEDURE: CHEST PA AND LATERAL 07/01/2025 REASON FOR EXAM: CHEST PAIN TECHNIQUE: Procedure Code: RADCXR Modality: DX Procedure: CHEST PA AND LATERAL COMPARISON: 08/01/2022 FINDINGS: Lungs/Pleura: Clear. No pneumothorax or pleural effusion. Heart/Mediastinum: Normal in size. Bones/Soft tissues: Within normal limits. RAD/Chest PA and Lateral IMPRESSION: No acute cardiopulmonary disease. Reading Location: [id number]
[2025-07-01 17:36] VITALS: BP 111/62; PULSE 87; RESP 16; TEMP 36.8; O2SAT 100
== END 2025-07-01 17:40 | disposition home or self-care (01) ==
PROVIDERS: Emergency Provider Emergency Medicine; PCP Nurse Practitioner Family; Visit Provider Emergency Medicine
DX: J06.9 Acute upper respiratory infection, unspecified (principal); R07.89 Other chest pain
CPT/HCPCS: 71046; 80048; 84484; 85025; 87631; 93005; 94640; 96374; 99284; A4216